=== PATIENT | female | born 1960 | race Caucasian/White ===

== ENCOUNTER 2016-08-27 08:23 | Day surgery (SDC) | payer MEDICARE, OTHER ==
--- NOTE | 2016-08-27 06:12 | HP ---
DATE OF ADMISSION: Chief complaint is fluid in both ears. HISTORY OF PRESENT ILLNESS: This patient is a 55-year-old female who was recently seen in my office complaining of having a plugged sensation in both ears following an upper respiratory tract infection. At the time that the patient was seen she stated that she had previously been placed on a course of oral antibiotics, namely Augmentin and Keflex by her family physician. In addition to this, my office had placed tubes in her ears last year and she did quite well as long as the tubes were present. At the time that she was seen in my office, clinical examination of the ears revealed once again that there was fluid present in both ears, that is to say both tympanic membranes were dull with evidence of chronic bilateral serous otitis media, so-called glue ear. It was recommended that the patient undergo a bilateral myringotomy with insertion of ventilation tubes under general anesthesia. Past medical history reveals that the patient had allergies to BIAXIN. The current medications include methotrexate, metformin, Lasix, levothyroxine, lisinopril, pravastatin, minocycline, Flonase, generic Prilosec, generic Zantac, NovoLog insulin, VGO-40 insulin pump, halobetasol ointment, Pataday ophthalmic drops p.r.n. for allergic conjunctivitis, desonide, metronidazole. Previous surgeries include bilateral myringotomy with insertion of ventilation tubes, excision of left meningioma, mastoidectomy, RK eye surgery, colonoscopy, removal of bone spur from the left foot, small skin cancer removed from the face, tonsillectomy, adenoidectomy, tubal ligation, endoscopic sinus surgeries, septoplasty, arthroscopic knee surgery, appendectomy, cholecystectomy. The patient is 5 para, 4 C-sections, ( ) and 1 miscarriage. REVIEW OF SYSTEMS: Cardiovascular is positive for hypertension. Respiratory is negative. Gastrointestinal is positive for GERD. Metabolic/endocrine is positive for type 1 diabetes mellitus, hypothyroidism, and hypercholesterolemia. Remainder of the review of systems is unremarkable. PHYSICAL EXAMINATION: The patient is a pleasant 55-year-old female who is alert and cooperative. HEENT EXAMINATION: Patient is normocephalic. Both tympanic membranes are dull with fluid in both middle ear spaces. Pupils equal, round, reactive light and accommodation. Extraocular movements are within normal limits. Intranasal examination reveals mild septal deviation with compensatory hypertrophy of the inferior turbinates and a moderate amount of mucus on mucous membranes drained down the posterior pharynx. Examination of oropharynx, cranial nerves 2 through 12 and remainder of the head and neck exam are all within normal limits. CHEST/CARDIOVASCULAR: Both lung frederick are clear to percussion and auscultation. Patient is in regular sinus rhythm. S1 and S2 are present without any murmurs, S3s or S4s. Peripheral pulses are bilaterally symmetrical and within normal limits. ABDOMEN: There is no evidence of any masses, megaly or tenderness. The abdomen is soft. Skin is unremarkable. Musculoskeletal and neurological are within normal limits. PELVIC/RECTAL EXAM: The pelvic/rectal exam is deferred at this time because the patient has this done on a regular basis at her family physician's office. The remainder of physical exam is essentially unremarkable. IMPRESSION: Chronic bilateral serous otitis media. PLAN: The patient is scheduled undergo a bilateral myringotomy with insertion of ventilation tubes under either general anesthesia or IV sedation, depending upon the anesthesia department's preference. ATTENTION RNS IN THE PRESURGICAL AREA: I have not ordered nor has my office ordered any presurgical prophylactic antibiotics for this patient. In fact I have not ordered any presurgical medications for this patient. If any presurgical prophylactic antibiotics are sent to the presurgical area for this patient they should be returned to pharmacy and make sure that the patient's account is credited appropriately. Again, I have not ordered any presurgical prophylactic antibiotics on a bilateral myringotomy with insertion of ventilation tubes. I have explained the operation/procedure to the patient, including the risks, benefits, side effects, alternative therapies (including not receiving the proposed treatment or service), the likelihood of the patient achieving his/her goals, and potential recuperation problems for the procedure/sedation/analgesia, as well as any blood products, if indicated. I also explained to the patient the risks, benefits, and side effects of the alternatives, as well as the risks related to not receiving the proposed procedure, care treatment or services.
[~2016-08-27 08:23] MED LIST: Pre Op ABX Message 1 EACH MISC MISCELLANE ONE
[2016-08-27] MEDS ORDERED: MIDAZOLAM 2 MG/2 ML VIAL IV PRN (08:30)
[2016-08-27] MEDS ORDERED: SCOPOLAMINE 1.5MG/72HR PATCH TRANSDERM ONE (08:30)
[2016-08-27] MEDS ORDERED: HYDROmorphone 1 MG/ML 1 ML SYRINGE IVP PRN (08:30)
[2016-08-27] MEDS ORDERED: LACTATED RINGERS 1,000 ML IV SCH (08:30)
[2016-08-27] MEDS ORDERED: ONDANSETRON 4 MG/2 ML VIAL IVP ONE (08:30)
[2016-08-27] MEDS ORDERED: DEXAMETHASONE SOD PHOSPHATE 10 MG/ML 1 ML VIAL IV ONE (08:30)
[2016-08-27] MEDS ORDERED: LIDOCAINE 1% 20 ML VIAL (10MG/ML) FOR IV START INTRADERMA ONE (08:55)
[2016-08-27 08:57] LABS: Glucose,Whole Blood 127 mg/dL (75-99)
[2016-08-27 09:30] LABS: Glucose,Whole Blood 142 mg/dL (75-99)
[2016-08-27] MEDS ORDERED: OFLOXACIN 0.3% OPHTH DROPS 5 ML BOTTLE RIGHT EAR ONE (10:16)
[2016-08-27] MEDS ORDERED: OFLOXACIN 0.3% OPHTH DROPS 5 ML BOTTLE BOTH EARS ONE (10:16)
[2016-08-27] MEDS ORDERED: MIDAZOLAM 2 MG/2 ML VIAL ONE (10:22)
[2016-08-27] MEDS ORDERED: PROPOFOL 10 MG/ML 20 ML VIAL IV ONE (10:22)
[2016-08-27] MEDS ORDERED: KETOROLAC 30 MG/ML 1 ML VIAL ONE (10:22)
[2016-08-27] MEDS ORDERED: SUCCINYLCHOLINE CHLORIDE 100 MG/5 ML SYR IV ONE (10:22)
[2016-08-27] MEDS ORDERED: ePHEDrine 50 MG/ML 1 ML AMP ONE (10:22)
[2016-08-27] MEDS ORDERED: LIDOCAINE 1% INJ 10MG/ML (20 ML MDV) ONE (10:22)
[2016-08-27] MEDS ORDERED: CIPROFLOXACIN-DEXAMETH 0.3-0.1% DROPS 7.5 ML BTL LEFT EAR ONE (10:55)
[2016-08-27 11:14] VITALS: TEMP 97
[2016-08-27 11:33] LABS: Glucose,Whole Blood 96 mg/dL (75-99)
[2016-08-27 12:04] LABS: Glucose,Whole Blood 85 mg/dL (75-99)
[2016-08-27 12:09] VITALS: RESP 18
[2016-08-27 12:26] VITALS: BP 112/69; PULSE 88
--- NOTE | 2016-08-30 11:07 | OP ---
DATE OF SERVICE: 08/27/2016 SURGEON: SHELIA HERNÁNDEZ MD PROPOSAL MANAGER: PREOPERATIVE DIAGNOSIS: Chronic bilateral serous otitis media. POSTOPERATIVE DIAGNOSIS: Chronic bilateral serous otitis media. OPERATION: Bilateral myringotomy with insertion of Activent be Gunjan-Bobbin ventilation tubes. ANESTHESIA: General. ESTIMATED BLOOD LOSS: SPECIMENS REMOVED: COMPLICATIONS: None. OPERATIVE FINDINGS: DESCRIPTION OF PROCEDURE: The patient was placed on the operating table in the supine position after uneventful induction and IV sedation, satisfactory general anesthesia was obtained. Next, the operating microscope was brought into position over the patient's right ear where after insertion of a #3 aural speculum, the external canal was cleansed of all wax and debris. The myringotomy knife was used to make an incision in the anterior inferior quadrant of the right tympanic membrane. The middle ear space was suctioned free of all fluid and a 1.1 mm Gunjan bobbin ventilation tube was inserted without any difficulty. Attention was then directed to the left ear where the same procedure was carried out using the operating microscope, #3 aural speculum, the external auditory canal was cleansed of all wax and debris. The myringotomy knife was used to make an incision in the anterior inferior quadrant of the left tympanic membrane and the middle ear space was suctioned free of all fluid. A 1.1 mm Gunjan bobbin ventilation tube was inserted without any difficulty. At this point, the procedure was terminated. There were no intraoperative complications. The patient tolerated the procedure well and was returned to the recovery room in satisfactory condition.
== END 2016-08-27 12:57 | disposition home or self-care (01) ==
LOC: OR 08:23
PROVIDERS: ATTEND Otolaryngology
DX: H65.23 Chronic serous otitis media, bilateral (principal); K21.9 Gastro-esophageal reflux disease without esophagitis; E78.00 Pure hypercholesterolemia, unspecified; E03.9 Hypothyroidism, unspecified; I10 Essential (primary) hypertension; E78.5 Hyperlipidemia, unspecified; E10.9 Type 1 diabetes mellitus without complications; Z79.84 Long term (current) use of oral hypoglycemic drugs; Z79.4 Long term (current) use of insulin; Z79.899 Other long term (current) drug therapy; Z96.41 Presence of insulin pump (external) (internal); Z79.51 Long term (current) use of inhaled steroids; Z88.1 Allergy status to other antibiotic agents; Z88.8 Allergy status to other drugs, medicaments and biological substances
CPT/HCPCS: 69436; J2250; J2405; J2001; J1885; J0330; J2704

== ENCOUNTER 2017-01-03 08:35 | Day surgery (SDC) | payer MEDICARE, OTHER ==
[2016-12-31 09:21] VITALS: BMI 33.5
--- NOTE | 2017-01-03 01:02 | P.HPIM ---
History of Present Illness H&P Date: 01/03/17 Chief Complaint: Fluid in both ears This patient is a 56-year-old female who was recently seen in my office complaining of a blocked sensation in both ears. The patient had previously undergone a bilateral myringotomy with insertion of ventilation tubes approximately 1 year ago. At the time that she was seen in my office clinical examination of the ears revealed that both ventilation tubes were completely occluded and there was fluid in both middle ear spaces. It was recommended that the patient undergo a bilateral myringotomy with insertion of ventilation tubes under IV sedation. Past medical history reveals that the patient has ALLERGIES to Biaxin and Celexa. Her current medications include desonide, methotrexate, metformin, Lasix, levothyroxine, lisinopril, Neurontin, pravastatin, minocycline, Flonase, Prilosec, Xanax, and NovoLog insulin. There is a history of hypertension and type 1 diabetes mellitus. There is no history of asthma. Review of systems: Cardiovascular is positive for hypertension; gastrointestinal is positive for GERD; metabolic abdomen is positive for hypercholesterolemia and type 1 diabetes mellitus. The remainder of the review of systems is essentially unremarkable. Physical Examination: this patient is a pleasant 56-year-old female who was alert and cooperative. HEENT: The patient is normocephalic and both tympanic membranes are dull with fluid in both middle ear spaces. Both ventilation tubes are completely occluded. Pupils are equal, round, and reactive to light and accommodation. Extraocular movements are within normal limits. Intranasal examination reveals moderate septal deviation with bilateral hypertrophy of the inferior turbinates. There is a slight amount of clear, mucus on the mucous membranes and draining down the posterior pharyngeal wall. Examination of the oropharynx, palpation of the neck, and cranial nerves II through XII and the remainder of the head and neck exam is within normal limits. chest cardiovascular: Both lung frederick are clear to percussion and auscultation. The patient is a regular sinus rhythm. S1 and S2 are present without evidence of any murmurs, S3s, or S4's. Peripheral pulses are bilaterally symmetrical. Abdomen: There is no evidence of any masses, megaly, or tenderness. The abdomen is soft. Musculoskeletal and neurological: Within normal limits. Pelvic rectal exam: The pelvic rectal exam is deferred at this time because patient has done a regular basis at her family physician's office. The remainder of the physical exam was essentially within normal limits. Impression: chronic bilateral serous Clarence media with bilateral occluded ventilation tubes. Plan: the patient is scheduled to undergo a bilateral myringotomy with insertion of ventilation tubes with IV sedation with M.a.c. or general anesthesia, depending upon the anesthesia department's preference. Attention RNs in the presurgical area: I have not ordered any presurgical prophylactic antibiotics for this patient. If the pharmacy department sends any presurgical prophylactic antibiotics to presurgical area for this patient, they should be returned to the pharmacy department and make sure that the patient's account is credited appropriately. Past Medical History Past Medical History: Diabetes Mellitus, Hyperlipidemia, Hypertension, Osteoarthritis (OA), Skin Disorder, Thyroid Disorder, Vascular Disorder Additional Past Medical History / Comment(s): ROSACEA. peripheral artery disease , varicose veins, ulcer, eczema, psoriasis, frequent ear infection. insulin pump History of Any Multi-Drug Resistant Organisms: None Reported Past Surgical History: Adenoidectomy, Section, Cholecystectomy, Ear Surgery, Orthopedic Surgery, Tonsillectomy, Tubal Ligation Additional Past Surgical History / Comment(s): right femur osteotomy, right knee arthroscopy, heel spurs-sherif, Past Anesthesia/Blood Transfusion Reactions: No Reported Reaction, Motion Sickness Additional Past Anesthesia/Blood Transfusion Reaction / Comment(s): . Smoking Status: Former smoker - Past Family History Father Family Medical History: Cancer, Deep Vein Thrombosis (DVT) Additional Family Medical History / Comment(s): lung cancer Medications and Allergies Home Medications Medication Instructions Recorded Confirmed Type Furosemide [Lasix] 80 mg PO QAM 06/26/14 12/31/16 History Lisinopril [Prinivil] 20 mg PO HS 06/26/14 12/31/16 History metFORMIN HCL [Glucophage] 1,000 mg PO BID 06/26/14 12/31/16 History Jxilwzu-Ajwa-Pwds [id number] 1 - 3 each PO Q4HR PRN 07/11/14 12/31/16 History [Excedrin] Minocycline [Minocin] 75 mg PO BID 07/11/14 12/31/16 History Olopatadine HCl [Pataday] 1 drop BOTH EYES DAILY 07/29/15 12/31/16 History Insulin Aspart (For Pump) [NovoLOG 2 unit SQ-PUMP CONTINUOUS 08/27/16 12/31/16 History (For Pump)] DULoxetine HCL [Cymbalta] 60 mg PO HS 12/31/16 12/31/16 History Levothyroxine Sodium 88 mcg PO QAM 12/31/16 12/31/16 History Omeprazole [PriLOSEC] 40 mg PO QAM 12/31/16 12/31/16 History Pravastatin Sodium [Pravachol] 40 mg PO HS 12/31/16 12/31/16 History Ranitidine HCl 150 mg PO BID 12/31/16 12/31/16 History Allergies Allergy/AdvReac Type Severity Reaction Status Date / Time adhesive Allergy Rash/Hives Verified 12/31/16 09:07 citalopram hydrobromide Allergy Rash/Hives Verified 12/31/16 09:07 [From Celexa] clarithromycin [From Biaxin] Allergy Rash/Hives Verified 12/31/16 09:07 Thrombosis Risk Factor Assmnt - Choose All That Apply Each Factor Represents 1 point: Age 41-60 years, Minor surgery planned, Obesity (BMI >25) Each Risk Factor Represents 3 Points: Family history of DVT/PE Thrombosis Risk Factor Assessment Total Risk Factor Score: 6 Thrombosis Risk Factor Assessment Level: High Risk
[~2017-01-03 08:35] MED LIST changes: +DEXAMETHASONE SOD PHOSPHATE 10 MG/ML 1 ML VIAL IV ONE; +HYDROmorphone 1 MG/ML 1 ML SYRINGE IVP PRN; +LIDOCAINE 1% 20 ML VIAL (10MG/ML) FOR IV START INTRADERMA PRN; +ONDANSETRON 4 MG/2 ML VIAL IVP ONE; +SCOPOLAMINE 1.5MG/72HR PATCH TRANSDERM ONE
[2017-01-03 09:42] LABS: Glucose,Whole Blood 117 mg/dL (75-99)
[2017-01-03] MEDS: LACTATED RINGERS 1,000 ML IV SCH ×2 (09:51→10:34)
[2017-01-03] MEDS ORDERED: OFLOXACIN 0.3% OTIC DROPS 5 ML BTL BOTH EARS ONE ×2 (10:20→10:46)
[2017-01-03] MEDS ORDERED: MIDAZOLAM 2 MG/2 ML VIAL ONE (10:34)
[2017-01-03] MEDS ORDERED: PROPOFOL 10 MG/ML 20 ML VIAL IV ONE (10:34)
[2017-01-03] MEDS ORDERED: fentaNYL (PF) 50 MCG/ML 2 ML AMP ONE (10:34)
[2017-01-03] MEDS ORDERED: LIDOCAINE 1% INJ 10MG/ML (20 ML MDV) ONE (10:34)
[2017-01-03] MEDS ORDERED: EPINEPHrine 1 MG/ML (MDV) 30 ML VIAL TOPICAL ONE (10:57)
[2017-01-03 11:39] VITALS: TEMP 97.4
[2017-01-03 11:49] LABS: Glucose,Whole Blood 95 mg/dL (75-99)
[2017-01-03 12:10] VITALS: RESP 16
[2017-01-03 12:39] VITALS: BP 130/80; PULSE 89
--- NOTE | 2017-01-03 22:03 | P.OP ---
Date of Procedure: 10/04/16 Preoperative Diagnosis: Chronic bilateral serous otitis media Postoperative Diagnosis: Chronic bilateral serous otitis media Procedure(s) Performed: Bilateral myringotomy with insertion of ventilation tubes Implants: Leigha T-type ventilation tube Anesthesia: GETA Surgeon: Sarmad Roth Indications for Procedure: Operative Findings: Description of Procedure:
--- NOTE | 2017-01-03 22:12 | P.OP ---
Date of Procedure: 10/04/16 Preoperative Diagnosis: Chronic bilateral serous otitis media Postoperative Diagnosis: Chronic bilateral serous otitis media Procedure(s) Performed: Bilateral myringotomy with insertion of ventilation tubes Implants: Jaiden T type ventilation tube Anesthesia: JUAN C Surgeon: Sarmad Roth Indications for Procedure: Operative Findings: Description of Procedure: The patient was placed on operating table in the supine position and after uneventful induction and LMA intubation satisfactory general anesthesia was obtained. Next, using the Zeiss operating microscope and a #3 aural speculum the right external auditory canal was cleansed of all wax and debris. Next, a previously inserted occluded ventilation tube was removed using the myringotomy knife and a pick. Next, the middle ear space was suctioned free of all fluid and a Jaiden T-type ventilation tube was inserted after making a myringotomy incision in the anterior-inferior quadrant of the right tympanic membrane. Attention then was directed to the left ear with the same procedure was carried out, that is to say using the Zeiss operating microscope and a #3 aural speculum the left external auditory canal was cleansed of all wax and debris. Next, using the myringotomy knife a previously inserted occluded ventilation tube was removed without incident. Next, an incision was made in the anterior- inferior quadrant of the left of the tympanic membrane and the left middle ear space was suctioned free of all fluid. Following this a Jaiden T-type ventilation tube was inserted without difficulty. At this point the procedure was terminated. There were no intra-operative complications. Estimated blood loss was 0. The patient tolerated procedure well and was returned to the recovery room etc. if he condition.
== END 2017-01-03 13:12 | disposition home or self-care (01) ==
LOC: OR 08:35
PROVIDERS: ATTEND Otolaryngology
DX: H65.23 Chronic serous otitis media, bilateral (principal); E10.9 Type 1 diabetes mellitus without complications; Z79.84 Long term (current) use of oral hypoglycemic drugs; Z79.4 Long term (current) use of insulin; Z96.41 Presence of insulin pump (external) (internal); E78.5 Hyperlipidemia, unspecified; I10 Essential (primary) hypertension; M19.90 Unspecified osteoarthritis, unspecified site; E07.9 Disorder of thyroid, unspecified; Z87.891 Personal history of nicotine dependence; K21.9 Gastro-esophageal reflux disease without esophagitis; Z79.2 Long term (current) use of antibiotics; Z79.899 Other long term (current) drug therapy; Z88.1 Allergy status to other antibiotic agents; Z88.8 Allergy status to other drugs, medicaments and biological substances; Z91.09 Other allergy status, other than to drugs and biological substances
CPT/HCPCS: 69436; J0171; J2250; J1100; J2405; J2001; J3010; J2704

== ENCOUNTER → 2017-11-01 | Outpatient (CLI) | payer MEDICARE, OTHER ==
--- NOTE | 2017-11-01 08:15 | CT ---
EXAMINATION TYPE: CT soft tissue neck wo con DATE OF EXAM: 11/01/2017 COMPARISON: NONE HISTORY: 57-year-old female complaining of bilateral ear pain, neck pain, degenerative osteoarthritis . TECHNIQUE: Contiguous axial scanning of the soft tissues of the neck without IV contrast. Coronal and sagittal reconstructions performed. CT DLP: 344.8 mGycm Automated exposure control for dose reduction was used. FINDINGS: Visualized intracranial structures, orbits and globes, paranasal sinuses, and mastoid air cells appea r clear. Evidence of prior FESS. Lack of IV contrast limits assessment of the mucosal space. Within this limitation, the nasopharynx a ppears clear. Some soft tissue thickening along the right tubal and right palatine tonsils, refer to axial image 55 and 48 causing asymmetry adjacent to the uvula as well as the vallecular spaces. The epiglottis and prevertebral soft tissues are normal. The glottic and subglottic structures as well as the tracheal column and visualized upper lungs are c lear. The thyroid gland, submandibular glands, and parotid glands appear grossly unremarkable allowing for noncontrast technique. Scattered tiny lymph nodes are present on both sides of the neck. No cervical lymphadenopathy by CT s ize criteria. Bones: No osseous destructive process. IMPRESSION: 1. ASYMMETRIC SOFT TISSUE THICKENING ALONG THE RIGHT TUBAL AND RIGHT PALATINE TONSILS COULD BE SECOND KATRIN TO MUCOSAL REDUNDANCY AND CROWDED STRUCTURES. DIRECT VISUALIZATION TO EXCLUDE A MUCOSAL LESION AN D IN THE MIDLINE 2. OTHERWISE, NO SPECIFIC ABNORMALITY SEEN ON NONCONTRAST CT.
== END | disposition home or self-care (01) ==
LOC: RADCTMAIN 06:27
PROVIDERS: ATTEND Otolaryngology
DX: M79.89 Other specified soft tissue disorders (principal); M19.90 Unspecified osteoarthritis, unspecified site
CPT/HCPCS: 70490

== ENCOUNTER 2017-11-18 09:37 | Day surgery (SDC) | payer MEDICARE, OTHER ==
[2017-11-10 11:10] VITALS: BMI 30.9
--- NOTE | 2017-11-18 02:47 | HP ---
HISTORY AND PHYSICAL CHIEF COMPLAINT: Lesion of the hypopharynx. HISTORY OF PRESENT ILLNESS: This patient is a pleasant 57-year-old female who was recently seen in my office for evaluation of possible throat problems. The patient stated that she had a foreign body sensation in her throat. An indirect laryngoscopy with headlight and mirror did not reveal any suspicious lesions. However, a CT scan of the neck with and without contrast revealed some soft tissue thickening along the right palatine tonsils which appear to be causing asymmetry of the uvula and the adjacent vallecular spaces on the right. It was recommended direct visualization of this area be carried out. Therefore, it was recommended the patient undergo a suspension microlaryngoscopy with possible biopsy of any lesions are found. PAST MEDICAL HISTORY: Reveals the patient has: ALLERGIES: BIAXIN AND CELEXA. MEDICATIONS: Her current medications include desonide, methotrexate, metformin, Lasix, levothyroxine, lisinopril, Neurontin and, pravastatin, minocycline, Flonase, Prilosec, Xanax, and NovoLog insulin. REVIEW OF SYSTEMS: Reveals there the cardiovascular system is positive for hypertension. Gastrointestinal system positive for GERD, gastroesophageal reflux disorder. Metabolic/endocrine is positive for hypercholesterolemia and type 1 diabetes mellitus. The remainder of the physical exam is essentially unremarkable. PHYSICAL EXAMINATION: This patient is a 57-year-old female who was alert and cooperative. HEENT examination: Patient is normocephalic. Tympanic membranes are normal. Middle ear space is free of any fluid or infection. Pupils are equal, round, reactive to light and accommodation. Extraocular movements within normal limits. Intranasal examination reveals moderate septal deviation with compensatory hypertrophy of the inferior turbinates and a moderate amount of mucus on the mucous membranes and draining down the posterior pharynx. Examination of oropharynx and hypopharynx are as described above in the history of present illness and will not be repeated here. Palpation of the neck and cranial nerves 2 through 12 and the remainder of the head and neck exam are within normal limits. CHEST/CARDIOVASCULAR: Both lung frederick are clear to percussion and auscultation. The patient is in regular sinus rhythm. S1 and S2 are present without any murmurs, S3s or S4s. Peripheral pulses are bilaterally symmetrical. ABDOMEN: There is no evidence of any masses, megaly, or tenderness. ABDOMEN: Soft. SKIN is unremarkable. MUSCULOSKELETAL AND NEUROLOGICAL are within normal limits. PELVIC/RECTAL EXAMINATION: Exam is deferred at this time because the patient has this done on a regular basis at her family physician's office. The remainder of physical exam is unremarkable. IMPRESSION: Suspect lesion of the right base of tongue. PLAN: The patient is scheduled undergo a suspension microlaryngoscopy, possible biopsy of lesion of the right base of tongue under general anesthesia and in the a.m. Attention RNs in the pre-surgical area: I have not ordered any pre-surgical prophylactic antibiotics for this patient. If the pharmacy department sends any pre- surgical prophylactic antibiotics to the pre-surgical area for this patient, that order should be cancelled and the medication should be returned to the pharmacy department and please make sure that the patient's account is credited appropriately. The only medications that I have ordered is Ofirmev 1000 mg IV, to be given once an intravenous line has been established. MMTRANGL / THANHN: [id number] /
[~2017-11-18 09:37] MED LIST changes: +HYDROmorphone 0.5 MG/0.5 ML SYRINGE IVP PRN; -HYDROmorphone 1 MG/ML 1 ML SYRINGE IVP PRN; +LACTATED RINGERS 1,000 ML IV SCH; +MIDAZOLAM 2 MG/2 ML VIAL IV PRN
[2017-11-18 10:53] LABS: Glucose,Whole Blood 143 mg/dL (75-99)
[2017-11-18] MEDS ORDERED: ACETAMINOPHEN IV (For NPO) 1,000 MG in EMPTY BAG 1 BAG IVPB ONE (11:25)
[2017-11-18] MEDS ORDERED: ePHEDrine SULFATE/0.9% NACL/PF 50 MG/5 ML SYRINGE IV ONE (12:07)
[2017-11-18] MEDS ORDERED: LIDOCAINE 1% INJ 10MG/ML (20 ML MDV) ONE (12:07)
[2017-11-18] MEDS ORDERED: GLYCOPYRROLATE 0.2 MG/ML 2 ML VIAL ONE (12:07)
[2017-11-18] MEDS ORDERED: PROPOFOL 10 MG/ML 20 ML VIAL IV ONE (12:07)
[2017-11-18] MEDS ORDERED: DEXAMETHASONE SOD PHOS (MDV) 100 MG/10 ML VIAL ONE (12:07)
[2017-11-18] MEDS ORDERED: MIDAZOLAM 2 MG/2 ML VIAL ONE (12:07)
[2017-11-18] MEDS ORDERED: NEOSTIGMINE 1 MG/ML 10 ML VIAL ONE (12:07)
[2017-11-18] MEDS ORDERED: SUCCINYLCHOLINE CHLORIDE 100 MG/5 ML SYR IV ONE (12:07)
[2017-11-18] MEDS ORDERED: fentaNYL (PF) 50 MCG/ML 2 ML AMP ONE (12:07)
[2017-11-18] MEDS ORDERED: ROCURONIUM BROMIDE 10 MG/ML 10 ML VIAL IV ONE (12:07)
[2017-11-18 12:53] VITALS: RESP 18; TEMP 97.6
[2017-11-18 14:05] VITALS: PULSE 66
[2017-11-18 14:37] VITALS: BP 116/70
--- NOTE | 2017-11-20 17:13 | OP ---
OPERATIVE REPORT DATE OF SURGICAL PROCEDURE: 11/19/2007. PREOPERATIVE DIAGNOSIS: Suspicious lesion of the right base of tongue, right parapharyngeal area. POSTOPERATIVE DIAGNOSIS: Normal examination of the hypopharynx. OPERATIVE PROCEDURE: The patient was placed on operating table in supine position and after uneventful induction endotracheal intubation, satisfactory general anesthesia was obtained. Next the laryngoscope was introduced into the patient's oropharynx in the usual fashion and the entire hypopharynx including the right and left piriform sinuses, vallecula, tip of the epiglottis, and base of tongue, were inspected for any suspicious lesions and none was found. Next, the tip of the laryngoscope was introduced into the laryngeal introitus and the laryngoscope was suspended on the patient's chest using the Lewy apparatus. Next, using the Zeiss operating microscope and under magnified visualization, no suspicious lesions were noted of the larynx. The laryngoscope was then repositioned to the area of the base of tongue, specifically the right base of tongue and again no suspicious lesions were noted and therefore no biopsies were taken. The entire right parapharyngeal gutter was inspected and again no suspicious lesions were noted in the hypopharynx or in the posterior pharynx. The patient was given 10 mg of Decadron to reduce any postoperative edema. At this point, the procedure was terminated. There were no intraoperative complications. The patient tolerated procedure well and was returned to the recovery room in satisfactory condition. MMODL / IJN: [id number] /
== END 2017-11-18 14:38 | disposition home or self-care (01) ==
LOC: OR 09:37
PROVIDERS: ATTEND Otolaryngology
DX: J35.2 Hypertrophy of adenoids (principal); I10 Essential (primary) hypertension; K21.9 Gastro-esophageal reflux disease without esophagitis; E78.00 Pure hypercholesterolemia, unspecified; E10.9 Type 1 diabetes mellitus without complications; Z91.09 Other allergy status, other than to drugs and biological substances; E78.5 Hyperlipidemia, unspecified; E07.9 Disorder of thyroid, unspecified; Z79.84 Long term (current) use of oral hypoglycemic drugs; Z79.82 Long term (current) use of aspirin; Z79.890 Hormone replacement therapy; Z79.899 Other long term (current) drug therapy; Z88.1 Allergy status to other antibiotic agents; Z88.8 Allergy status to other drugs, medicaments and biological substances
CPT/HCPCS: 31526; J2250; J1100 ×2; J2710; J2405; J2001; J3010; J0131; J0330; J2704

== ENCOUNTER → 2018-03-14 | Outpatient (CLI) | payer MEDICARE, OTHER ==
--- NOTE | 2018-03-14 09:58 | MR ---
EXAMINATION TYPE: MR knee LT wo con DATE OF EXAM: 03/14/2018 COMPARISON: None HISTORY: Pain in left knee TECHNIQUE: Multiplanar, multisequence images of the knee is performed without IV contrast. FINDINGS: MEDIAL MENISCUS: Anterior and posterior horns are intact without tear. LATERAL MENISCUS: Anterior and posterior horns are intact without tear. Myxoid degeneration anterior horn lateral meniscus. CRUCIATE LIGAMENTS: The anterior and posterior cruciate ligaments are intact and unremarkable. COLLATERAL LIGAMENTS: The medial collateral ligament and lateral collateral ligament complex are inta ct and unremarkable. EXTENSOR MECHANISM: Visualized quadriceps and patellar tendons are intact. EFFUSION: Small suprapatellar joint effusion noted. POPLITEAL CYST: No popliteal/akers cyst. TRICOMPARTMENT SPACES: Severe narrowing patellofemoral joint space with changes of chondromalacia pat lena and subchondral cyst formation. Extensive cartilaginous thinning mild narrowing medial tibiofemo ral joint space. Intercondylar spur formation noted as well as spur formation about the margins of th e femoral condyles and tibial plateaus. BONE MARROW SIGNAL: No focal abnormal marrow signal is appreciated. OTHER: No additional significant abnormality is appreciated. IMPRESSION: 1. Changes of chondromalacia patella. 2. Myxoid degeneration anterior horn lateral meniscus. 3. Joint effusion.
== END | disposition home or self-care (01) ==
LOC: RADMRIMAIN 07:08
PROVIDERS: ATTEND Orthopaedic Surgery
DX: M22.42 Chondromalacia patellae, left knee (principal); M17.12 Unilateral primary osteoarthritis, left knee

== ENCOUNTER 2018-06-15 18:54 | Emergency (ER) | payer MEDICARE ==
[2018-06-15 19:22] VITALS: BP 112/63; PULSE 107; RESP 16; TEMP 98.4
--- NOTE | 2018-06-15 21:46 | ED ---
General Adult HPI - General Chief complaint: ENT Stated complaint: EAR PAIN, HAS TUBES Source: patient, RN notes reviewed, old records reviewed Mode of arrival: ambulatory Limitations: no limitations - History of Present Illness Initial comments: 57-year-old female patient past medical history of PE tubes presents to ED with 1 week ear pain, sinus congestion, sore throat. Patient denies all other signs or symptoms. Patient has not taken anything for these symptoms. Patient denies chest pain, shortness breath, abdominal pain, nausea vomiting diarrhea, fever chills. Systemic: Pt denies fatigue, myalgia, fever/chills, rash. Pt denies weakness, night sweats, weight loss. Neuro: Pt denies headache, visual disturbances, syncope or pre-syncope. HEENT: Pt denies ocular discharge or irritation, rhinorrhea, or notable lymphadenopathy. Cardiopulmonary: Pt denies chest pain, SOB, heart palpitations, dyspnea on exertion. Abdominal/GI: Pt denies abdominal pain, n/v/d. : Pt denies dysuria, burning w/ urination, frequency/urgency. Denies new onset urinary or bowel incontinence. MSK: Pt denies myalgia, loss of strength or function in extremities. Neuro: Pt denies new onset weakness, paresthesias. - Related Data Home Medications Medication Instructions Recorded Confirmed Furosemide [Lasix] 80 mg PO QAM 06/26/14 11/18/17 Lisinopril [Prinivil] 20 mg PO HS 06/26/14 11/18/17 metFORMIN HCL [Glucophage] 1,000 mg PO BID 06/26/14 11/18/17 Exwiouo-Nkoz-Rinp 645-135-79Hg 1 - 3 each PO Q4HR PRN 07/11/14 11/18/17 [Excedrin] Minocycline [Minocin] 75 mg PO BID 07/11/14 11/18/17 Olopatadine HCl [Pataday] 1 drop BOTH EYES DAILY 07/29/15 11/18/17 Insulin Aspart (For Pump) [NovoLOG 2 unit SQ-PUMP CONTINUOUS 08/27/16 11/10/17 (For Pump)] DULoxetine HCL [Cymbalta] 60 mg PO HS 12/31/16 11/18/17 Levothyroxine Sodium 88 mcg PO QAM 12/31/16 11/18/17 Omeprazole [PriLOSEC] 40 mg PO QAM 12/31/16 11/18/17 Pravastatin Sodium [Pravachol] 40 mg PO HS 12/31/16 11/18/17 Ranitidine HCl 150 mg PO BID 12/31/16 11/18/17 Previous Rx's Medication Instructions Recorded HYDROcodone/APAP 5-325MG [Bethany 1 tab PO Q4HR PRN 2 Days #10 tab NS 11/18/17 5-325] Amoxicillin/Potassium Clav 1 each PO Q12HR 10 Days #20 tab 06/15/18 [Augmentin 875-125 Tablet] Allergies Allergy/AdvReac Type Severity Reaction Status Date / Time adhesive Allergy Rash/Hives Verified 06/15/18 19:22 citalopram hydrobromide Allergy Rash/Hives Verified 06/15/18 19:22 [From Celexa] clarithromycin [From Biaxin] Allergy Rash/Hives Verified 06/15/18 19:22 Review of Systems ROS Statement: Those systems with pertinent positive or pertinent negative responses have been documented in the HPI. ROS Other: All systems not noted in ROS Statement are negative. Past Medical History Past Medical History: Diabetes Mellitus, Hyperlipidemia, Hypertension, Osteoarthritis (OA), Skin Disorder, Thyroid Disorder, Vascular Disorder Additional Past Medical History / Comment(s): Peripheral artery disease, varicose veins, stomach ulcer, eczema, psoriasis, rosacea, frequent ear infection, has Insulin pump. History of Any Multi-Drug Resistant Organisms: None Reported Past Surgical History: Adenoidectomy, Section, Cholecystectomy, Ear Surgery, Orthopedic Surgery, Tonsillectomy, Tubal Ligation Additional Past Surgical History / Comment(s): right femur osteotomy, right knee arthroscopy, heel spurs-sherif, Past Anesthesia/Blood Transfusion Reactions: No Reported Reaction Additional Past Anesthesia/Blood Transfusion Reaction / Comment(s): . Past Psychological History: Depression Smoking Status: Former smoker Past Alcohol Use History: None Reported Past Drug Use History: None Reported - Past Family History Father Family Medical History: Cancer, Deep Vein Thrombosis (DVT) Additional Family Medical History / Comment(s): lung cancer General Exam - General Exam Comments Initial Comments: Constitutional: NAD, AOX3, Pt has pleasant affect. HEENT: NC/AT, trachea midline, neck supple, no lymphadenopathy. Posterior pharynx non erythematous, without exudates. External ears appear normal, without discharge. Tympanic membrane mildly erythematous, PE tubes in place, no discharge, perforation. Mucous membranes moist. Maxillary sinus pressure reproducible. Eyes PERRLA, EOM intact. There is no scleral icterus. No pallor noted. Cardiopulmonary: RRR, no murmurs, rubs or gallops, no JVD noted. Lungs CTAB in anterior and posterior frederick. No peripheral edema. HR 72 on cardiopulmonary exam. Abdominal exam: Abdomen soft and non-distended. Abdomen non-tender to palpation in all 4 quadrants. Bowel sounds active in LLQ. No hepatosplenomegaly. No ecchymosis Neuro: CN II-XII grossly intact. No nuchal rigidity. MSK: No posterior calf tenderness bilaterally, homans sign negative bilaterally. Posterior tibialis and radial pulse +2 bilaterally. Sensation intact in upper and lower extremities. Full active ROM in upper and lower extremities, 5/5 stregnth. Limitations: no limitations Course Vital Signs 06/15/18 19:19 Temperature 98.4 F Pulse Rate 107 H Respiratory 16 Rate Blood Pressure 112/63 O2 Sat by Pulse 100 Oximetry Medical Decision Making - Medical Decision Making 57-year-old female patient past medical history of PE tubes presents to ED with 1 week ear pain, sinus congestion, sore throat. Patient denies all other signs or symptoms. Physical exam displayed mildly erythematous TM's. Maxillary sinus pressure reproducible. Pt to be tx for sinusitis and otitis media with augmentin. Pt to f/u with PCP in 1-2 days. Pt to follow up with ENT Dr. Conn in 1-2 days. Pt to return to ED if new signs or symptoms develop or if conditions worsen in anyway. Disposition Clinical Impression: Sinusitis, Otitis media Disposition: HOME SELF-CARE Condition: Good Instructions: Sinusitis (ED) Additional Instructions: Patient to adhere to previously discussed treatment plan and will take medication(s) as directed. Patient to follow up with PCP in 1-2 days. Patient to return to ED if symptoms do not improve. Prescriptions: Amoxicillin/Potassium Clav [Augmentin 875-125 Tablet] 1 each PO Q12HR 10 Days # 20 tab Is patient prescribed a controlled substance at d/c from ED?: No Referrals: Alo De La Vega MD [Primary Care Provider] - 1-2 days Time of Disposition: 21:46
== END 2018-06-15 22:02 | disposition home or self-care (01) ==
LOC: EC 18:54
DX: H66.93 Otitis media, unspecified, bilateral (principal); J32.0 Chronic maxillary sinusitis; E78.5 Hyperlipidemia, unspecified; I10 Essential (primary) hypertension; E07.9 Disorder of thyroid, unspecified; F32.9 Major depressive disorder, single episode, unspecified; Z87.891 Personal history of nicotine dependence; Z88.1 Allergy status to other antibiotic agents; Z88.8 Allergy status to other drugs, medicaments and biological substances; Z91.048 Other nonmedicinal substance allergy status; Z79.4 Long term (current) use of insulin; Z79.899 Other long term (current) drug therapy; Z96.22 Myringotomy tube(s) status; Z96.41 Presence of insulin pump (external) (internal); Z87.19 Personal history of other diseases of the digestive system; Z86.19 Personal history of other infectious and parasitic diseases; Z90.89 Acquired absence of other organs
CPT/HCPCS: 99283

== ENCOUNTER → 2018-07-25 | Outpatient (CLI) | payer MEDICARE, OTHER ==
[2018-07-25 13:06] LABS: Basophils % (A) 0 %; Eosinophils # (A) 0.1 k/uL (0-0.7); Eosinophils % (A) 2 %; HCT 35.3 % (34.0-46.0); HGB 11.4 gm/dL (11.4-16.0); Lymphocytes # (A) 1.2 k/uL (1.0-4.8); Lymphocytes % (A) 26 %; MCH 30.9 pg (25.0-35.0); MCHC 32.4 g/dL (31.0-37.0); MCV 95.4 fL (80.0-100.0); Mean Platelet Volume 7.1; Monocytes # (A) 0.2 k/uL (0-1.0); Monocytes % (A) 5 %; Neutrophils # (A) 3.1 k/uL (1.3-7.7); Neutrophils % (A) 65 %; Platelet Count 304 k/uL (150-450); RBC 3.69 m/uL (3.80-5.40); RDW 15.4 % (11.5-15.5); WBC 4.7 k/uL (3.8-10.6)
[2018-07-25 13:10] LABS: Prothrombin Time 10.4 sec (9.0-12.0)
[2018-07-25 13:13] LABS: Potassium 5.1 mmol/L (3.5-5.1)
== END ==
LOC: LABPAT 11:41
PROVIDERS: ATTEND Orthopaedic Surgery
DX: Z01.818 Encounter for other preprocedural examination (principal); M17.12 Unilateral primary osteoarthritis, left knee; Z51.81 Encounter for therapeutic drug level monitoring; Z79.01 Long term (current) use of anticoagulants
CPT/HCPCS: 36415; 80051; 85025; 85610; 87070; 93005

== ENCOUNTER 2018-08-07 05:42 | Inpatient (IN) | payer MEDICARE, OTHER ==
--- NOTE | 2018-08-06 17:23 | HP ---
HISTORY AND PHYSICAL HISTORY: Claribel Horowitz is a 57-year-old patient seen with symptomatic left knee osteoarthritis. Treatment options were discussed with her. She elected to proceed with left total knee arthroplasty. Consent was obtained. Medical clearance provided by Dr. Alo De La Vega. PAST MEDICAL HISTORY: Hypertension, hypothyroidism, gastroesophageal reflux disease, insulin-dependent diabetes. PAST SURGICAL HISTORY: Noncontributory. MEDICATIONS: 1. Lantus insulin. 2. Levothyroxine. 3. Lisinopril. 4. Metformin. 5. NovoLog insulin. 6. Pravastatin. 7. Prilosec. 8. Zantac. 9. Victoza. ALLERGIES: BIAXIN, CELEXA. SOCIAL HISTORY: She denies tobacco use. PHYSICAL EXAMINATION: Evaluation of the left knee, range of motion is 0 to 125 degrees. Tenderness medial joint line. Crepitus along the medial and patellofemoral compartments with range of motion. Ligaments stable. Hip rotation without pain. Distal neurovascular exam is intact. RADIOGRAPHS: Radiographs of the left knee reveal moderate to severe medial, moderate to severe lateral, and severe patellofemoral compartment osteoarthritis. IMPRESSION: 1. Left knee osteoarthritis. 2. Hypertension. 3. Hypothyroidism. PLAN: Left total knee arthroplasty. MMODL / IJN: [id number] /
[~2018-08-07 05:42] MED LIST changes: -LACTATED RINGERS 1,000 ML IV SCH; +MELOXICAM 7.5 MG TAB PO ONE; +MIDAZOLAM (PF) 2 MG/2 ML VIAL IV PRN; -MIDAZOLAM 2 MG/2 ML VIAL IV PRN; -Pre Op ABX Message 1 EACH MISC MISCELLANE ONE; -SCOPOLAMINE 1.5MG/72HR PATCH TRANSDERM ONE; +TRANEXAMIC ACID 1,000 MG in SODIUM CHLORIDE 0.9% 100 ML IVPB ONE; +ceFAZolin IN SWFI 2 GM/20 ML SYRINGE IVP ONE; +fentaNYL (PF) 50 MCG/ML 2 ML AMP IV PRN
[2018-08-07] MEDS: LACTATED RINGERS 1,000 ML IV SCH ×4 (06:19→22:52)
[2018-08-07 06:32] LABS: Glucose,Whole Blood 116 mg/dL (75-99)
[2018-08-07] MEDS ORDERED: MIDAZOLAM 2 MG/2 ML VIAL IVP ONE (07:06)
[2018-08-07] MEDS ORDERED: ROPIVACAINE 1,100 MG, SODIUM CHLORIDE 0.9% 500 ML 330 ML MISCELLANE PRN ×2 (07:16)
[2018-08-07] MEDS ORDERED: TRANEXAMIC ACID 1,000 MG/10 ML VIAL ONE (07:25)
[2018-08-07] MEDS ORDERED: SODIUM CHLORIDE 0.9% 100 ML BAG ONE (07:25)
[2018-08-07] MEDS ORDERED: MIDAZOLAM 2 MG/2 ML VIAL ONE (07:25)
[2018-08-07] MEDS ORDERED: fentaNYL (PF) 50 MCG/ML 2 ML AMP ONE (07:25)
[2018-08-07] MEDS ORDERED: ceFAZolin 3,000 MG in SODIUM CHLORIDE 0.9% IRRIGATIO 3,000 ML IRRIGATION ONE (07:30)
[2018-08-07] MEDS ORDERED: ROPIVACAINE 246.25 MG, EPINEPHrine 0.5 MG, KETOROLAC 30 MG, cloNIDine HCL/PF 80 MCG, WA... MISCELLANE ONE ×5 (07:30)
[2018-08-07] MEDS ORDERED: LACTATED RINGERS 1,000 ML IV ONE ×2 (07:50→12:09)
[2018-08-07] MEDS ORDERED: HYDROmorphone 1 MG/ML 1 ML SYRINGE IVP PRN (09:01)
[2018-08-07] MEDS ORDERED: ONDANSETRON 4 MG/2 ML VIAL IVP PRN (09:01)
[2018-08-07] MEDS ORDERED: HYDROmorphone 0.5 MG/0.5 ML SYRINGE IVP PRN ×2 (09:01)
[2018-08-07] MEDS ORDERED: NALOXONE 0.4 MG/ML 1 ML VIAL IV PRN (09:01)
[2018-08-07] MEDS ORDERED: HYDROcodone/APAP 5-325MG 1 EACH TAB PO PRN (09:01)
--- NOTE | 2018-08-07 09:01 | P.OP ---
Date of Procedure: 08/07/18 Preoperative Diagnosis: Left knee osteoarthritis Postoperative Diagnosis: Left knee osteoarthritis Procedure(s) Performed: Left total knee arthroplasty Implants: 1. Microport evolution size 3 left cemented femur 2. Microport evolution size 3 left cemented tibial baseplate 3. Microport evolution size 3 left MP/CS 10 mm polyethylene tibial insert 4. Microport advance 35 mm cemented all polyethylene patella Anesthesia: regional (Adductor canal catheter), local, spinal Surgeon: Michele Chaudhry Manager Operational #1: Rasta Gerber Estimated Blood Loss (ml): 50 Pathology: other (Bone) Condition: stable Disposition: PACU Indications for Procedure: 57-year-old patient seen with symptomatic left knee osteoarthritis. After treatment options were discussed, she elected to proceed with total knee arthroplasty Operative Findings: See description of procedure Description of Procedure: Patient was taken to the operative suite after having an adductor canal catheter placed by the department of anesthesia. Patient underwent a spinal anesthetic by the department of anesthesia. Patient was given preoperative IV intake antibiotics and TXA. A well-padded tourniquet was placed about the left lower extremity. The lower extremity was then prepped and draped in the normal sterile orthopedic fashion. The extremity was elevated, a tourniquet was insufflated to 300. A standard anterior incision was made sharply through skin. Dissection was taken down through the subcutaneous soft tissues down to the extensor mechanism. A medial arthrotomy was performed, patella was everted and knee was flexed. There was advanced osteoarthritis noted. I introduced my distal intramedullary femoral drill. I then introduced the distal femoral cutting jig. Sebastien GRAY secured the cutting jig with 2 pins. I held retractors in position while Sebastien GRAY performed the distal femoral resection through the guide area we now removed her distal femoral cutting guide. We now placed our 4-in-1 femoral cutting block and positioned and it was secured with 2 pins by Sebastien GRAY while I held the block in position. The distal femoral finishing was now completed. A proximal tibial cutting guide was positioned. I held the guide in the appropriate position with both hands well Sebastien GRAY inserted stabilizing pins into the guide. Proximal tibial cut was made. We now placed a trial femoral component into position, along with an appropriate size tibial tray and insert. We now took the knee through range of motion and had full extension good flexion and good overall soft tissue balance noted. The patella was everted and stabilized with 2 towel clips held by Sebastien GRAY while I performed a flush with patellar quad tendon utilizing a fresh sawblade. We templated the patella, appropriate drill holes were made. An appropriate trial patella was positioned, knee was taken through full range of motion with the patella tracking very nicely. The trial patella was removed. Drill holes were made through the femoral component. All trial components were removed after marking off the appropriate rotation of the tibia. Retractors were now positioned along the proximal tibia. An appropriate keel punch was made with the appropriate size tibial guide by myself on Sebastien GRAY assisted by holding retractors. At this point appropriate size implants were chosen and opened. The joint was irrigated copiously with pulse lavage mechanical irrigation. The posterior capsule was infiltrated with local analgesic. The wound was irrigated with pulse lavage mechanical irrigation. We mixed antibiotic methylmethacrylate. We placed the knee into flexion. We placed multiple retractors assisted by Sebastien GRAY to expose the proximal tibia. Once the methyl methacrylate was ready, the tibial component was cemented into place removing any excess methylmethacrylate form by both myself and Sebastien GRAY. The femoral component was cemented into place removing the removing any excess methylmethacrylate performed by both myself and Sebastien GRAY. We then inserted the appropriate size polyethylene tibial insert. We made sure that it was locked into position. We took the knee into full extension, and then back in a flexion making sure we had removed any excess methylmethacrylate. The patellar component was then cemented down and secured with clamp. Excess methylmethacrylate removed. We kept the knee in full extension, patellar clamp in position until methylmethacrylate had hardened. Once it had hardened the patellar clamp was removed. The knee was taken through full range of motion. The patella tracked nicely. There was good soft tissue balancing. The tourniquet was now released. Additional hemostasis was achieved via electrocautery. A second gram of TXA was given. The wound again was irrigated with pulse lavage mechanical irrigation. The superficial soft tissues were infiltrated local analgesic. The extensor mechanism was repaired with Vicryl. We checked the repair with range of motion and it was stable. The subcutaneous soft tissues were repaired with Vicryl in layers. The skin was approximated with pernio/Dermabond. Sterile dressings were applied followed by loose web roll and Federico bandage. The patient was transferred to a bed, and taken to recovery in stable and satisfactory condition. Sebastien GRAY assisted with this complex procedure.
--- NOTE | 2018-08-07 09:39 | XR ---
EXAMINATION TYPE: XR knee limited LT DATE OF EXAM: 08/07/2018 COMPARISON: None HISTORY: Evaluation for postop abnormality in alignment TECHNIQUE: 2 view left knee FINDINGS: Tibial and femoral components have been placed. Postsurgical changes are present through th e knee. No acute fractures are evident. IMPRESSION: 1. No acute fractures post knee replacement.
[2018-08-07 09:55] LABS: Glucose,Whole Blood 158 mg/dL (75-99)
--- NOTE | 2018-08-07 10:02 | P.ONQ ---
Anesthesiology Proc Note - PNB - Peripheral Nerve Block Performed Left Adductor Canal Infusion Time Out Performed: Yes Procedure Start Time: 07:06 Procedure Stop Time: :18 Indication: Acute Post-Operative Pain, Requested by physician Sedation Type: Sedate with meaningful contact maintained Preparation: Sterile Dressing Position: Supine Catheter: Indwelling Needle Types: On-Q Needle Size: 100mm (4") Needle Gauge: 21 Technique: Ultrasound Injectate: 0.5% Ropivacaine (see comment for volume) (ropi .5% 20cc) Blood Aspirated: No Pain Paresthesia on Injection Noted: No Resistance on Injection: Normal Events: Uneventful and Well Tolerated
[2018-08-07 14:25] VITALS: BMI 27.8
[2018-08-07] MEDS ORDERED: KETOTIFEN 0.025% OPHTH DROPS 5 ML BTL BOTH EYES PRN (16:27)
[2018-08-07 17:31] LABS: Glucose,Whole Blood 283 mg/dL (75-99)
[2018-08-07] MEDS: ceFAZolin IN SWFI 2 GM/20 ML SYRINGE IVP SCH (18:05)
[2018-08-07] MEDS: metFORMIN 500 MG TAB PO SCH (18:11)
[2018-08-07] MEDS ORDERED: INSULIN PUMP BASAL RATES 1 EACH MISC MISCELLANE PRN (18:21)
[2018-08-07] MEDS ORDERED: INSPUCOR MISCELLANE PRN (18:21)
[2018-08-07] MEDS: Insulin Aspart (For Pump) 100 UNIT/ML VIAL SQ-PUMP SCH (18:26)
[2018-08-07] MEDS: PRAVASTATIN SODIUM 40 MG TAB PO SCH (20:16)
[2018-08-07] MEDS: FAMOTIDINE 20 MG TAB PO SCH (20:16)
[2018-08-07] MEDS: DULoxetine HCL 30 MG CAPSULE.DR PO SCH (20:16)
[2018-08-07] MEDS: LISINOPRIL 20 MG TAB PO SCH (20:16)
[2018-08-07] MEDS: AMOXIC-POT CLAV 875-125MG 1 EACH TAB PO SCH (20:16)
[2018-08-07] MEDS: SENNOSIDES-DOCUSATE SODIUM 1 EACH TAB PO SCH (20:16)
[2018-08-07] MEDS: HYDROcodone/APAP 5-325MG 1 EACH TAB PO PRN (20:17)
[2018-08-07 20:18] LABS: Glucose,Whole Blood 216 mg/dL (75-99)
[2018-08-07] MEDS ORDERED: DULoxetine HCL 60 MG CAPSULE.DR PO SCH (21:00)
--- NOTE | 2018-08-08 00:03 | CONS ---
CONSULTATION REASON FOR CONSULTATION: Advice regarding diabetes mellitus, hypertension, hyperlipidemia, requested by Orthopedic Surgery. HISTORY OF PRESENT ILLNESS: This 57-year-old woman with a past medical history diabetes mellitus, GERD, hypertension, hyperlipidemia, history of thyroid disorder, being followed by Dr. De La Vega in the outpatient setting, underwent left total knee arthroplasty by Dr. Chaudhry. The patient tolerated the procedure well. There is no history of any fever, rigor, chills. No history of headache, loss of consciousness, seizures. The patient is also taking antibiotics for upper respiratory infection. PAST MEDICAL HISTORY: 1. History of diabetes mellitus. 2. GERD. 3. Hypertension. 4. Hyperlipidemia. 5. History of DJD. 6. History of skin disorder. 7. History of hypothyroidism. 8. Vascular disorder. HOME MEDICATIONS: 1. Glucophage 1000 mg p.o. b.i.d. 2. Ranitidine 150 mg p.o. b.i.d. 3. Pravachol 40 mg at bedtime. 4. Pataday 1 drop both eyes daily p.r.n. 5. Prinivil 20 mg at bedtime. 6. Levothyroxine 88 mcg p.o. each morning. 7. NovoLog pump. 8. Lasix 80 mg each morning. 9. Vibramycin 100 mg each morning. 10.Cymbalta 30 mg at bedtime. 11.Cymbalta 60 mg at bedtime. 12.Augmentin 875 mg one p.o. b.i.d. ALLERGIES: 1. ADHESIVE. 2. CELEXA. 3. BIAXIN. FAMILY HISTORY: History of cancer and DVT, lung cancer. SOCIAL HISTORY: Previous history of smoking. No current smoking or alcohol intake. REVIEW OF SYSTEMS: ENT: No diminished hearing. No diminished vision. CARDIOVASCULAR SYSTEM: No angina, palpitations. RESPIRATORY SYSTEM: No cough, hemoptysis. GI: No nausea, vomiting. : No dysuria or retention. NERVOUS SYSTEM: No numbness, weakness. ALLERGY/IMMUNOLOGY: No asthma, hayfever. MUSCULOSKELETAL: As mentioned earlier. HEMATOLOGY/ONCOLOGY: No history of anemia. ENDOCRINE: Diabetes mellitus. CONSTITUTIONAL: As mentioned earlier. DERMATOLOGY: Negative. RHEUMATOLOGY: Negative. PSYCHIATRY: As mentioned earlier. PHYSICAL EXAMINATION: Patient is alert, oriented x3. The pulse is 101, blood pressure 111/68, respirations 16, temperature 98.2, pulse ox 100% on room air. HEENT: Conjunctivae normal. NECK: No jugular venous distention. CARDIOVASCULAR SYSTEM: S1, S2 muffled. RESPIRATORY SYSTEM: Breath sounds diminished at the bases. No rhonchi. No crackles. ABDOMEN: Soft, non-tender. No mass palpable. LEGS: Status post knee arthroplasty. NERVOUS SYSTEM: Higher functions as mentioned earlier. Moves all 4 limbs. No focal motor or sensory deficit. LYMPHATICS: No lymph node palpable in neck, axillae or groin. SKIN: No ulcer, rash, bleeding. JOINTS: No active deforming arthropathy. LABS: Accu-Cheks 116, 158, 283. ASSESSMENT: 1. Status post left total knee joint arthroplasty. 2. Diabetes mellitus, type 2. 3. Gastroesophageal reflux disease. 4. Hypertension. 5. Hyperlipidemia. 6. Degenerative joint disease. 7. Hypothyroidism. 8. History of vascular disorder. 9. Insulin pump. 10.Peripheral vascular disease. 12.Adenoidectomy. 13. section. 14.Cholecystectomy. RECOMMENDATIONS AND DISCUSSION: I recommend to continue current medications, continue with symptomatic treatment. Continue with insulin pump. Monitor blood sugars closely. Continue the rest of medications. I would also resume the home medications. DVT prophylaxis. Incentive spirometry. We will follow the patient closely with you. Thank you, Dr. Chaudhry, for letting us participate in the care of this patient. MELISSA / THANHN: [id number] / KULDEEP
[2018-08-08] MEDS: ceFAZolin IN SWFI 2 GM/20 ML SYRINGE IVP SCH (00:06)
[2018-08-08] MEDS: ENOXAPARIN 30 MG/0.3 ML SYRINGE SQ SCH ×3 (00:06→20:24)
[2018-08-08] MEDS: HYDROcodone/APAP 5-325MG 1 EACH TAB PO PRN ×4 (02:34→20:25)
[2018-08-08] MEDS: LACTATED RINGERS 1,000 ML IV SCH ×3 (05:17→14:49)
[2018-08-08] MEDS: LEVOTHYROXINE 88 MCG TAB PO SCH (05:31)
[2018-08-08 07:06] LABS: Glucose,Whole Blood 64 mg/dL (75-99)
[2018-08-08 07:46] LABS: Glucose,Whole Blood 70 mg/dL (75-99)
[2018-08-08 08:19] LABS: Basophils % (A) 0 %; Eosinophils # (A) 0.1 k/uL (0-0.7); Eosinophils % (A) 3 %; HCT 27.8 % (34.0-46.0); Lymphocytes % (A) 24 %; MCH 32.7 pg (25.0-35.0); MCHC 33.6 g/dL (31.0-37.0); MCV 97.1 fL (80.0-100.0); Mean Platelet Volume 6.6; Monocytes # (A) 0.3 k/uL (0-1.0); Monocytes % (A) 6 %; Neutrophils # (A) 2.8 k/uL (1.3-7.7); Neutrophils % (A) 65 %; Platelet Count 218 k/uL (150-450); RBC 2.86 m/uL (3.80-5.40); RDW 15.3 % (11.5-15.5); WBC 4.2 k/uL (3.8-10.6)
[2018-08-08 08:21] LABS: HGB 9.3 gm/dL (11.4-16.0)
[2018-08-08 08:37] LABS: Anion Gap 5 mmol/L; Blood Urea Nitrogen 18 mg/dL (7-17); Calcium 9.1 mg/dL (8.4-10.2); Carbon Dioxide 27 mmol/L (22-30); Chloride 105 mmol/L (98-107); Glucose 92 mg/dL (74-99); Potassium 4.1 mmol/L (3.5-5.1); Sodium 137 mmol/L (137-145)
[2018-08-08] MEDS: metFORMIN 500 MG TAB PO SCH ×2 (08:58→17:31)
[2018-08-08] MEDS: FUROSEMIDE 80 MG TAB PO SCH ×2 (09:00→09:04)
[2018-08-08] MEDS: PANTOPRAZOLE 40 MG TABLET PO SCH (09:00)
[2018-08-08] MEDS: AMOXIC-POT CLAV 875-125MG 1 EACH TAB PO SCH ×2 (09:00→20:24)
[2018-08-08] MEDS: MELOXICAM 7.5 MG TAB PO SCH (09:00)
[2018-08-08] MEDS: FAMOTIDINE 20 MG TAB PO SCH ×2 (09:00→20:24)
--- NOTE | 2018-08-08 10:45 | P.PN ---
Progress Note - Text Progress Note Date: 08/08/18 The patient is status post left adductor canal catheter placement. The catheter was placed for postoperative pain control, status post total [left knee ] arthroplasty. Ropivacaine 0.2% is infusing at[ 6] mLs per hour. The patient has no complaints of[ left ] lower extremity numbness or weakness. Patient's VAS score is[ 4 ]-10. Assessment: Patient's adductor canal catheter is in place and working appropriately. Plan: continue infusion and adjust it as needed.
[2018-08-08 12:13] LABS: Glucose,Whole Blood 212 mg/dL (75-99)
--- NOTE | 2018-08-08 13:16 | P.PN ---
Subjective Progress Note Date: 08/08/18 Principal diagnosis: Status post left total knee arthroplasty Patient evaluated bedside, she is resting comfortably. Slight increase in pain involving the knee when ambulating. Denies any chest pain or shortness of breath. Objective - Vital Signs Vital signs: Vital Signs Temp 98.1 F 08/08/18 07:00 Pulse 91 08/08/18 07:00 Resp 12 08/08/18 07:00 BP 110/70 08/08/18 07:00 Pulse Ox 100 08/08/18 07:00 Intake & Output 08/07/18 08/08/18 08/08/18 18:59 06:59 18:59 Intake Total 1831 1250 Output Total 50 Balance 1781 1250 Intake: IV 1351 Intake, IV Titration 1250 Amount Lactated Ringers 1,000 ml 1250 @ 100 mls/hr IV .Q10H PILLO Rx#:[id number] Oral 480 Output: Estimated Blood Loss 50 Other: Voiding Method Toilet Toilet # Voids 2 - Exam Left lower extremity: Incision is clean, dry, and intact. The casey are in good condition. There is minimal soft tissue swelling and ecchymosis surrounding the medial and lateral aspects of the incision. Calf is soft, no tenderness with palpation. Plantar flexion, dorsiflexion, EHL, FHL are intact. Sensory exam to light touch throughout the extremity is intact, dorsal pedis pulses 2+. - Labs CBC & Chem 7: 08/08/18 07:27 08/08/18 07:27 Labs: Abnormal Lab Results - Last 24 Hours (Table) 08/07/18 08/07/18 08/08/18 Range/Units 17:18 20:07 06:55 RBC (3.80-5.40) m/uL Hgb (11.4-16.0) gm/dL Hct (34.0-46.0) % BUN (7-17) mg/dL POC Glucose (mg/dL) 283 H 216 H 64 L (75-99) mg/dL 08/08/18 08/08/18 08/08/18 Range/Units 07:24 07:27 07:27 RBC 2.86 L (3.80-5.40) m/uL Hgb 9.3 L D (11.4-16.0) gm/dL Hct 27.8 L (34.0-46.0) % BUN 18 H (7-17) mg/dL POC Glucose (mg/dL) 70 L (75-99) mg/dL 08/08/18 Range/Units 12:01 RBC (3.80-5.40) m/uL Hgb (11.4-16.0) gm/dL Hct (34.0-46.0) % BUN (7-17) mg/dL POC Glucose (mg/dL) 212 H (75-99) mg/dL Assessment and Plan Plan: Assessment: Postoperative day 1 status post left total knee arthroplasty Plan: Pain control, continue current medication GI and DVT prophylaxis, continue current medication Home care instructions discussed Icing and elevating often Encourage incentive spirometer Medical recommendations Hopeful discharged to home in the next day or 2 Time with Patient: Less than 30
[2018-08-08 17:03] LABS: Glucose,Whole Blood 202 mg/dL (75-99)
[2018-08-08 18:09] LABS: Hemoglobin A1C 7.6 % (4.0-6.0)
[2018-08-08] MEDS: Insulin Aspart (For Pump) 100 UNIT/ML VIAL SQ-PUMP SCH (18:33)
--- NOTE | 2018-08-08 19:00 | PN ---
PROGRESS NOTE DATE OF SERVICE: 08/08/2018 This 57-year-old woman who was admitted after left total knee arthroplasty is improving significantly. No chest pain. No palpitations. No fever. On exam, alert and oriented x3. The pulse is 88, blood pressure 124/74, respiratory rate 16, temperature 98.1, pulse ox 100% on room air. HEENT: Conjunctivae normal. NECK: No jugular venous distention. CARDIOVASCULAR SYSTEM: S1, S2 muffled. RESPIRATORY SYSTEM: Breath sounds diminished at the bases. No rhonchi. No crackles. ABDOMEN: Soft, non-tender. No mass palpable. LEGS: Status post surgery. NERVOUS SYSTEM: No focal deficit. LABS: Hemoglobin 9.3. Accu-Cheks 64, 70, 212. ASSESSMENT: 1. Status post left total knee arthroplasty. 2. Diabetes mellitus, type 2, with some hypoglycemia. 3. Gastroesophageal reflux disease. 4. Hypertension. 5. Hyperlipidemia. 6. Degenerative joint disease. 7. History of hypothyroidism. 8. History of vascular disorder. 9. Insulin pump. 10.Peripheral vascular disease. 12.Adenoidectomy. 13. section. 14.Cholecystectomy. RECOMMENDATIONS AND DISCUSSION: I recommend to continue current medications, continue with the monitoring, symptomatic treatment. I recommend to continue with insulin pump. Further adjustments as an outpatient. Blood sugar is fluctuating at this time. Otherwise, DVT prophylaxis. Further recommendations to follow. See orders for further details. MMODL / IJN: [id number] / MTDD
[2018-08-08] MEDS: LISINOPRIL 20 MG TAB PO SCH (20:24)
[2018-08-08] MEDS: DULoxetine HCL 30 MG CAPSULE.DR PO SCH (20:24)
[2018-08-08] MEDS: SENNOSIDES-DOCUSATE SODIUM 1 EACH TAB PO SCH (20:24)
[2018-08-08] MEDS: PRAVASTATIN SODIUM 40 MG TAB PO SCH (20:24)
[2018-08-08 20:37] LABS: Glucose,Whole Blood 186 mg/dL (75-99)
[2018-08-09] MEDS: HYDROcodone/APAP 5-325MG 1 EACH TAB PO PRN ×2 (01:26→07:21)
[2018-08-09] MEDS: LACTATED RINGERS 1,000 ML IV SCH (03:34)
[2018-08-09 07:09] LABS: Glucose,Whole Blood 211 mg/dL (75-99)
[2018-08-09] MEDS: ENOXAPARIN 30 MG/0.3 ML SYRINGE SQ SCH (07:22)
[2018-08-09] MEDS: metFORMIN 500 MG TAB PO SCH (07:22)
[2018-08-09] MEDS: PANTOPRAZOLE 40 MG TABLET PO SCH (07:22)
[2018-08-09] MEDS: LEVOTHYROXINE 88 MCG TAB PO SCH (07:22)
[2018-08-09] MEDS: FUROSEMIDE 80 MG TAB PO SCH (08:02)
[2018-08-09] MEDS: FAMOTIDINE 20 MG TAB PO SCH (08:02)
[2018-08-09] MEDS: MELOXICAM 7.5 MG TAB PO SCH (08:02)
[2018-08-09] MEDS: AMOXIC-POT CLAV 875-125MG 1 EACH TAB PO SCH (08:02)
[2018-08-09 12:14] LABS: Glucose,Whole Blood 147 mg/dL (75-99)
--- NOTE | 2018-08-09 14:11 | P.PN ---
Subjective Progress Note Date: 08/09/18 Principal diagnosis: Status post left total knee arthroplasty Patient evaluated bedside, she is resting comfortably. Slight increase in pain involving the knee when ambulating. Denies any chest pain or shortness of breath. Objective - Vital Signs Vital signs: Vital Signs Temp 98.5 F 08/09/18 07:00 Pulse 89 08/09/18 07:00 Resp 17 08/09/18 07:00 BP 128/79 08/09/18 07:00 Pulse Ox 100 08/09/18 07:00 Intake & Output 08/08/18 08/09/18 08/09/18 18:59 06:59 18:59 Intake Total 500 476 Balance 500 476 Intake: Oral 500 476 Other: Voiding Method Toilet Toilet # Voids 2 2 - Exam Left lower extremity: Incision is clean, dry, and intact. The casey are in good condition. There is minimal soft tissue swelling and ecchymosis surrounding the medial and lateral aspects of the incision. Calf is soft, no tenderness with palpation. Plantar flexion, dorsiflexion, EHL, FHL are intact. Sensory exam to light touch throughout the extremity is intact, dorsal pedis pulses 2+. - Labs CBC & Chem 7: 08/08/18 07:27 08/08/18 07:27 Labs: Abnormal Lab Results - Last 24 Hours (Table) 08/08/18 08/08/18 08/08/18 Range/Units 07:27 16:50 20:26 POC Glucose (mg/dL) 202 H 186 H (75-99) mg/dL Hemoglobin A1c 7.6 H (4.0-6.0) % 08/09/18 08/09/18 Range/Units 06:54 12:02 POC Glucose (mg/dL) 211 H 147 H (75-99) mg/dL Hemoglobin A1c (4.0-6.0) % Assessment and Plan Plan: Assessment: Postoperative day #2 status post left total knee arthroplasty Plan: Pain control, will discharge on oral medication GI and DVT prophylaxis, aspirin 81 mg twice a day Home care instructions discussed Icing and elevating often Encourage incentive spirometer Medical recommendations Discharged home today Time with Patient: Less than 30
--- NOTE | 2018-08-09 14:15 | P.DS ---
Providers Date of admission: 08/07/18 05:42 Expected date of discharge: 08/09/18 Attending physician: Michele Chaudhry Consults: 08/07/18 09:01 Consult Physician Routine Consulting Provider: Konstantin Colin Consult Reason/Comments: Medical management Do you want consulting provider notified?: Yes Primary care physician: [facility] Hospital Course: Date of admission: 08/07/2018 Date of discharge: 08/09/2018 Admission diagnosis: Status post left total knee arthroplasty Discharge diagnosis: Same Attending physician: Dr. Chaudhry Surgical procedures: Left total knee arthroplasty Brief history: Patient is a 57-year-old female with a history of progressive primary left knee osteo- arthritis. At this point patient has failed conservative treatment measures and has opted to proceed with a elective left total knee arthroplasty. Hospital course: Details of patient's surgery can be found in operative report. Patient tolerated the procedure well and was subsequently transported to orthopedic floor. Patient's orthopeidc and medical care was provided daily. Patient had daily laboratory tests performed for evaluation of overall blood counts. Patient had daily physical therapy to include strengthening range of motion as well as education with walker ambulation. Patient had daily CPM usage as part of their physical therapy program. Patient was treated with Lovenox for their postoperative DVT prophylaxis during their inpatient stay. Patient was noted to have a relatively uneventful postoperative course. Patient reported satisfactory pain control with oral pain medications by postoperative day 0. Patient showed satisfactory progress with physical therapy. Patient moved steadily through the program and had no difficulty meeting the goals by postoperative day 2. Given patient's otherwise satisfactory course and having met physical therapy goals, plan is to discharge patient home on postoperative day 2. Discharge condition/disposition: Patient will be discharged home in stable condition. Discharge medications: Instructions are given on resumption of patient's normal daily medications per primary care recommendation, in addition patient will be prescribed Dozier 7.5 mg/325 mg, aspirin 81 mg, Colace 100 mg. Discharge instructions: 1. Wound care and infection precautions, [keep incision dry and covered while showering], no lotions, creams, moisturizers. No soaking, tubs, pools, hottubs. Do not scrub over the incision. 2. Weight-bear [as tolerated] with walker / cane until follow-up. 3. Ice and elevate when necessary. Do not exceed 20 minutes per hour with ice pack. 4. Utilize compression sleeve until seen at first follow up appointment. 5. Visiting nursing care. 6. Home physical therapy [including home CPM]. 7. Pain meds and anticoagulants per prescription. 8. Pain medication has potential to cause constipation. Increase oral fluid and fiber intake. Contact primary care provider if you have not had a bowel movement within 48 hours after discharge 9. No anti-inflammatory medication until discussed at first post operative visit, this including Motrin, Aleve, Mobic, Diclofenac. 10. Follow up in office at 2 weeks postop with Sebastien Gerber PA-C 11. Follow up with your primary care doctor 7-10 days after discharge. 12. Contact [facility] with any questions, . Procedures: Left total knee arthroplasty Patient Condition at Discharge: Good Plan - Discharge Summary Discharge Rx Participant: Yes New Discharge Prescriptions: New Aspirin [Adult Low Dose Aspirin EC] 81 mg PO BID #60 tablet. Docusate [Colace] 100 mg PO DAILY #30 capsule HYDROcodone/APAP 7.5-325MG [Dozier 7.5] 1 each PO Q6HR PRN #28 tab PRN Reason: Pain No Action Lisinopril [Prinivil] 20 mg PO HS Furosemide [Lasix] 80 mg PO QAM metFORMIN HCL [Glucophage] 1,000 mg PO BID Olopatadine HCl [Pataday] 1 drop BOTH EYES DAILY PRN PRN Reason: Allergy Symptoms Insulin Aspart (For Pump) [NovoLOG (For Pump)] 2 unit SQ-PUMP CONTINUOUS Pravastatin Sodium [Pravachol] 40 mg PO HS DULoxetine HCL [Cymbalta] 60 mg PO HS Ranitidine HCl 150 mg PO BID Omeprazole [PriLOSEC] 40 mg PO QAM Levothyroxine Sodium 88 mcg PO QAM Amoxicillin/Potassium Clav [Augmentin 875-125 Tablet] 1 each PO Q12HR 10 Days #20 tab DULoxetine HCL [Cymbalta] 30 mg PO HS Doxycycline [Vibramycin] 100 mg PO QAM Discharge Medication List Furosemide [Lasix] 80 mg PO QAM 06/26/14 [History] Lisinopril [Prinivil] 20 mg PO HS 06/26/14 [History] metFORMIN HCL [Glucophage] 1,000 mg PO BID 06/26/14 [History] Olopatadine HCl [Pataday] 1 drop BOTH EYES DAILY PRN 07/29/15 [History] Insulin Aspart (For Pump) [NovoLOG (For Pump)] 2 unit SQ-PUMP CONTINUOUS [History] DULoxetine HCL [Cymbalta] 60 mg PO HS 12/31/16 [History] Levothyroxine Sodium 88 mcg PO QAM 12/31/16 [History] Omeprazole [PriLOSEC] 40 mg PO QAM 12/31/16 [History] Pravastatin Sodium [Pravachol] 40 mg PO HS 12/31/16 [History] Ranitidine HCl 150 mg PO BID 12/31/16 [History] Amoxicillin/Potassium Clav [Augmentin 875-125 Tablet] 1 each PO Q12HR 10 Days # 20 tab 06/15/18 [Rx] DULoxetine HCL [Cymbalta] 30 mg PO HS 07/31/18 [History] Doxycycline [Vibramycin] 100 mg PO QAM 07/31/18 [History] Aspirin [Adult Low Dose Aspirin EC] 81 mg PO BID #60 tablet. 08/09/18 [Rx] Docusate [Colace] 100 mg PO DAILY #30 capsule 08/09/18 [Rx] HYDROcodone/APAP 7.5-325MG [Dozier 7.5] 1 each PO Q6HR PRN #28 tab 08/09/18 [Rx] Follow up Appointment(s)/Referral(s): [facility] [NON-STAFF] - As Needed (walker) [facility], [NON-STAFF] - As Needed Rasta Gerber PAC [PHYSICIAN HOSPITAL MANAGER] - 08/23/18 2:50 pm Alo De La Vega MD [Primary Care Provider] - 1 Week (Office will call with appointment time) Activity/Diet/Wound Care/Special Instructions: Continuous Passive Motion machine ordered through [facility]: # Orthopedic Discharge Instructions: 1. Wound care and infection precautions, keep incision dry and covered while showering, no lotions, creams, moisturizers. No soaking, pools, hot tubs. Do not scrub over incision. 2. Weight-bear as tolerated with walker / cane until follow-up. 3. Ice and elevate when necessary. Do not exceed 20 minutes per hour with ice pack. 4. Utilize compression sleeve until seen at first follow up appointment. 5. Pain meds and anticoagulants per prescription. 6. Pain medication has potential to cause constipation. Increase oral fluid and fiber intake. Contact primary care provider if you have not had a bowel movement within 48 hours after discharge. 7. No anti-inflammatory medication until discussed at first post operative visit, this including Motrin, Aleve, Mobic, Diclofenac. 8. Follow up in office at 2 weeks postop with Sebastien Gerber PA-C 9. Follow up with your primary care doctor 7-10 days after discharge. 10. Contact [facility] with any questions, . Discharge Disposition: HOME WITH HOME HEALTH SERVICES
[2018-08-09 15:10] VITALS: BP 131/83; PULSE 88; RESP 15; TEMP 98.7
--- NOTE | 2018-08-09 18:11 | PN ---
PROGRESS NOTE DATE OF SERVICE: 08/09/2018 This 57-year-old woman who was admitted after left total knee arthroplasty also has diabetes mellitus. Blood sugars are slightly elevated. No chest pain. No palpitations. No fever. On exam, alert and oriented x3. Pulse 88, blood pressure 131/83, respiration 15, temperature 98.7, pulse ox 100% on room air. HEENT: Conjunctivae normal. NECK: No jugular venous distention. CARDIOVASCULAR SYSTEM: S1, S2 muffled. RESPIRATORY SYSTEM: Breath sounds diminished at the bases. No rhonchi. No crackles. ABDOMEN: Soft. LEGS: Status post knee arthroplasty. NERVOUS SYSTEM: No focal deficit. LABS: Accu-Cheks 186, 211, 147. Other labs are hemoglobin A1c of 7.6. ASSESSMENT: 1. Status post left total knee arthroplasty. 2. Diabetes mellitus, type 2, with hyperglycemia. 3. Gastroesophageal reflux disease. 4. Hypertension. 5. Hyperlipidemia. 6. Degenerative joint disease. 7. History of hypothyroidism. 8. History of vascular disorder. 9. Insulin pump. 10.Peripheral vascular disease. 11.Adenoidectomy. 12. section. 13.Cholecystectomy. RECOMMENDATIONS AND DISCUSSION: I recommend to continue current medications, continue with symptomatic treatment. I recommend to continue with current medications. Continue with insulin pump. Closely follow with the patient's primary physician in the outpatient setting. The pump might need some readjustment to control the blood sugar better in the outpatient setting if the blood sugars are still uncontrolled. The current blood sugars could indicate a hyperglycemic reaction to stress also. Closely follow with Orthopedic Surgery. Further recommendations to follow. MMODL / IJN: [id number] /
== END 2018-08-09 16:53 | disposition home health service (06) | DRG 470 ==
LOC: 2ORMAIN 05:42 → 4SSUR 14:06
PROVIDERS: ADMIT Orthopaedic Surgery; ATTEND Orthopaedic Surgery
PROC: 0SRC0J9 Replacement of Right Knee Joint with Synthetic Substitute, Cemented, Open Approach (ICD-10-PCS; principal; 2018-08-07 07:30)
DX: M17.12 Unilateral primary osteoarthritis, left knee (principal); E03.9 Hypothyroidism, unspecified; E11.51 Type 2 diabetes mellitus with diabetic peripheral angiopathy without gangrene; E11.65 Type 2 diabetes mellitus with hyperglycemia; E78.5 Hyperlipidemia, unspecified; I10 Essential (primary) hypertension; J06.9 Acute upper respiratory infection, unspecified; K21.9 Gastro-esophageal reflux disease without esophagitis; Z79.899 Other long term (current) drug therapy; Z80.1 Family history of malignant neoplasm of trachea, bronchus and lung; Z87.891 Personal history of nicotine dependence; Z79.890 Hormone replacement therapy; Z79.4 Long term (current) use of insulin; Z88.2 Allergy status to sulfonamides; Z88.8 Allergy status to other drugs, medicaments and biological substances; Z90.49 Acquired absence of other specified parts of digestive tract; Z79.2 Long term (current) use of antibiotics; Z96.41 Presence of insulin pump (external) (internal)
CPT/HCPCS: 80048; 83036; 84132; 85025; 88300

== ENCOUNTER 2018-10-13 08:33 | Day surgery (SDC) | payer MEDICARE, OTHER ==
[2018-10-10 13:37] VITALS: BMI 27.4
--- NOTE | 2018-10-12 23:15 | HP ---
HISTORY AND PHYSICAL CHIEF COMPLAINT: Fluid in both ears. HISTORY OF PRESENT ILLNESS: This patient is a very pleasant 58-year-old female who was recently seen in my office for evaluation of a plugged sensation in both ears. At the time that the patient was seen in my office, clinical examination of the ears revealed chronic bilateral serous otitis media so-called glue ear. Approximately 2 years ago, the patient had ventilation tubes inserted and it was noted that these had extruded. The patient was placed on a course of oral steroids and returned approximately 2 weeks later and at that time, it was noted that her symptoms had not changed and there was still fluid present in both middle ear spaces. It was therefore recommended that the patient undergo a bilateral myringotomy with insertion of ventilation tubes. This will be done under IV sedation with MAC. PAST MEDICAL HISTORY: Past medical history reveals patient has: ALLERGIES: TO BIAXIN AND CELEXA MEDICATIONS: Current medications include desonide, methotrexate, metformin, Lasix, levothyroxine, lisinopril, Neurontin, pravastatin, minocycline, Flonase, Prilosec, Xanax and NovoLog insulin. REVIEW OF SYSTEMS: Cardiovascular system is positive for hypertension. Respiratory system is again negative. Gastrointestinal system is positive for GERD (gastroesophageal reflux disorder), metabolic. Endocrine system is positive for type 1 diabetes mellitus, hypothyroidism and hypercholesterolemia. The remainder of the review of systems is essentially unremarkable. PHYSICAL EXAMINATION: This patient is a 58-year-old female who was alert and cooperative. HEENT examination patient is normocephalic. Both tympanic membranes are dull with fluid in both middle ear spaces. Previously inserted ventilation tubes have extruded. Pupils equal, round, and reactive to light and accommodation. Extraocular movements are within normal limits. Intranasal examination reveals moderate to severe septal deviation with compensatory hypertrophy of the inferior turbinates and a moderate amount of mucus on the mucous membranes and draining down the posterior pharynx. Examination of the oropharynx, cranial nerves 2 through 12 and the remainder of the head and neck exam are within normal limits. Chest/ cardiovascular: Both lung frederick are clear to percussion and auscultation. The patient is in regular sinus rhythm, S1, S2 are present without evidence of any murmurs, S3s or S4s. Peripheral pulses are bilaterally symmetrical and within normal limits. ABDOMEN: There is no evidence of any masses, megaly, or tenderness. Abdomen is soft. Skin is unremarkable. Musculoskeletal and neurological are within normal limits. Pelvic and rectal exam: The pelvic and rectal exam is deferred at this time because the patient has this done on a regular basis at her family physician's office. The remainder of the physical exam is essentially unremarkable. IMPRESSION: Chronic bilateral serous otitis media. PLAN: The patient is scheduled to undergo a bilateral myringotomy with insertion of Jaiden T- type ventilation tubes under IV sedation with MAC. Attention RNs in the pre-surgical area: I have not ordered any pre-surgical prophylactic antibiotics for this patient. If the pharmacy department sends any pre- surgical prophylactic antibiotics to the pre-surgical area for this patient, that order should be cancelled and the medication should be returned to the pharmacy department. Please make sure that the patient's account is credited appropriately. I have discussed the risks, benefits and alternative therapies for the above-mentioned procedure and for both sedation/analgesia as well as necessary blood product administration, if indicated, as they pertain to this patient. The patient has indicated his or her understanding and acceptance of the risks and procedures discussed. MMTRANGL / THANHN: [id number] /
[~2018-10-13 08:33] MED LIST changes: +LACTATED RINGERS 1,000 ML IV SCH; -LIDOCAINE 1% 20 ML VIAL (10MG/ML) FOR IV START INTRADERMA PRN; -MELOXICAM 7.5 MG TAB PO ONE; +Pre Op ABX Message 1 EACH MISC MISCELLANE ONE; +SCOPOLAMINE 1.5MG/72HR PATCH TRANSDERM ONE; -TRANEXAMIC ACID 1,000 MG in SODIUM CHLORIDE 0.9% 100 ML IVPB ONE; -ceFAZolin IN SWFI 2 GM/20 ML SYRINGE IVP ONE; -fentaNYL (PF) 50 MCG/ML 2 ML AMP IV PRN
[2018-10-13 09:18] LABS: Glucose,Whole Blood 117 mg/dL (75-99)
[2018-10-13] MEDS ORDERED: LIDOCAINE 1% 20 ML VIAL (10MG/ML) FOR IV START INTRADERMA ONE (09:20)
[2018-10-13 09:26] VITALS: RESP 16; TEMP 97
[2018-10-13] MEDS ORDERED: PROPOFOL 10 MG/ML 20 ML VIAL IV ONE (10:00)
[2018-10-13] MEDS ORDERED: fentaNYL (PF) 50 MCG/ML 2 ML AMP ONE (10:00)
[2018-10-13] MEDS ORDERED: MIDAZOLAM 2 MG/2 ML VIAL ONE (10:00)
[2018-10-13] MEDS ORDERED: CIPROFLOXACIN-DEXAMETH 0.3-0.1% DROPS 7.5 ML BTL BOTH EARS ONE (10:22)
[2018-10-13] MEDS ORDERED: EPINEPHrine 1 MG/ML (MDV) 30 ML VIAL IRRIGATION ONE ×2 (10:29)
[2018-10-13 11:35] VITALS: BP 123/73; PULSE 73
--- NOTE | 2018-10-16 15:02 | OP ---
OPERATIVE REPORT DATE OF SERVICE: 10/13/2017 PREOPERATIVE DIAGNOSIS: Chronic bilateral serous otitis media. POSTOPERATIVE DIAGNOSIS: Chronic bilateral serous otitis media. ANESTHESIA: General. OPERATIVE PROCEDURE: Bilateral myringotomy with insertion of Jaiden-type ventilation tubes. SURGEON: Dr. Roth. COMPLICATIONS: None. PROCEDURE: The patient was placed on the Operating table in the supine position after uneventful induction and IV sedation, satisfactory general anesthesia was obtained. Next, the operating microscope was brought into position over the patient's right ear where after insertion of a #3 aural speculum, the external canal was cleansed of all wax and debris. The myringotomy knife was used to make an incision in the anterior inferior quadrant of the right tympanic membrane. The middle ear space was suctioned free of all fluid and a 1.1 mm Gunjan bobbin ventilation tube was inserted without any difficulty. Attention was then directed to the left ear where the same procedure was carried out using the operating microscope, #3 aural speculum, the external auditory canal was cleansed of all wax and debris. The myringotomy knife was used to make an incision in the anterior inferior quadrant of the left tympanic membrane and the middle ear space was suctioned free of all fluid. A 1.1 mm Gunjan bobbin ventilation tube was inserted without any difficulty. At this point, the procedure was terminated. There were no intraoperative complications. The patient tolerated the procedure well and was returned to the Recovery Room in satisfactory condition. MMODL / IJN: [id number] /
== END 2018-10-13 11:52 | disposition home or self-care (01) ==
LOC: OR 08:33
PROVIDERS: ATTEND Otolaryngology
DX: H65.23 Chronic serous otitis media, bilateral (principal); I10 Essential (primary) hypertension; K21.9 Gastro-esophageal reflux disease without esophagitis; E10.9 Type 1 diabetes mellitus without complications; E03.9 Hypothyroidism, unspecified; E78.00 Pure hypercholesterolemia, unspecified; I73.9 Peripheral vascular disease, unspecified; F39 Unspecified mood [affective] disorder; Z79.890 Hormone replacement therapy; Z79.4 Long term (current) use of insulin; Z79.899 Other long term (current) drug therapy; Z88.1 Allergy status to other antibiotic agents; Z88.8 Allergy status to other drugs, medicaments and biological substances; Z91.09 Other allergy status, other than to drugs and biological substances
CPT/HCPCS: 69436; J0171; J2250 ×2; J1100; J2405; J3010; J2704

== ENCOUNTER 2019-04-12 16:56 | Emergency (ER) | payer MEDICARE, OTHER ==
[2019-04-12 17:13] VITALS: BP 120/63; PULSE 99; RESP 20; TEMP 97.7
--- NOTE | 2019-04-12 18:28 | ED ---
Eye Problem HPI - General Chief complaint: Eye Problems Stated complaint: Eye Pain/Lump Time Seen by Provider: 04/12/19 17:19 Source: patient Mode of arrival: ambulatory Limitations: no limitations - History of Present Illness Initial comments: Patient is a 58-year-old female presenting with irritation to her left eye that started today. Patient recently had laser surgery done to both of her eyes one week ago. Patient has had no complications since the surgery. Patient states she woke up this morning with irritation to her left eye as well as some mild redness on her upper eyelid. Patient was concerned and wanted to be seen. Patient denied changes in her vision, headache, nausea, vomiting, fever, chills. Patient has no other complaints at this time. Upon arrival to ER, vital signs are stable. - Related Data Home Medications Medication Instructions Recorded Confirmed Furosemide [Lasix] 80 mg PO QAM 06/26/14 10/13/18 Lisinopril [Prinivil] 20 mg PO HS 06/26/14 10/13/18 metFORMIN HCL [Glucophage] 1,000 mg PO BID 06/26/14 10/13/18 Olopatadine HCl [Pataday] 1 drop BOTH EYES DAILY PRN 07/29/15 10/13/18 Insulin Aspart (For Pump) [NovoLOG 1 applicate SQ-PUMP CONTINUOUS 08/27/16 10/13/18 (For Pump)] DULoxetine HCL [Cymbalta] 60 mg PO HS 12/31/16 10/13/18 Levothyroxine Sodium 88 mcg PO QAM 12/31/16 10/13/18 Omeprazole [PriLOSEC] 40 mg PO QAM 12/31/16 10/13/18 Pravastatin Sodium [Pravachol] 40 mg PO HS 12/31/16 10/13/18 Ranitidine HCl 150 mg PO BID 12/31/16 10/13/18 DULoxetine HCL [Cymbalta] 30 mg PO HS 07/31/18 10/13/18 Previous Rx's Medication Instructions Recorded Erythromycin Ophth Oint [Romycin 1 applic LEFT EYE BID 5 Days #1 04/12/19 Ophth Oint] tube Allergies Allergy/AdvReac Type Severity Reaction Status Date / Time adhesive Allergy Rash/Hives Verified 04/12/19 17:13 citalopram hydrobromide Allergy Rash/Hives Verified 04/12/19 17:13 [From Celexa] clarithromycin [From Biaxin] Allergy Rash/Hives Verified 04/12/19 17:13 Review of Systems ROS Statement: Those systems with pertinent positive or pertinent negative responses have been documented in the HPI. ROS Other: All systems not noted in ROS Statement are negative. Past Medical History Past Medical History: Diabetes Mellitus, GERD/Reflux, Hyperlipidemia, Hypertension, Osteoarthritis (OA), Skin Disorder, Thyroid Disorder, Vascular Disorder Additional Past Medical History / Comment(s): INSULIN PUMP. Peripheral artery disease, varicose veins. Stomach ulcer. Eczema, psoriasis, rosacea. Frequent ear infection. History of Any Multi-Drug Resistant Organisms: None Reported Past Surgical History: Adenoidectomy, Section, Cholecystectomy, Ear Surgery, Joint Replacement, Orthopedic Surgery, Tonsillectomy, Tubal Ligation Additional Past Surgical History / Comment(s): right femur osteotomy, right knee arthroscopy, heel spurs-sherif, left knee replacement Past Anesthesia/Blood Transfusion Reactions: Motion Sickness Additional Past Anesthesia/Blood Transfusion Reaction / Comment(s): Diff IV starts. Past Psychological History: Depression Smoking Status: Former smoker Past Alcohol Use History: None Reported Past Drug Use History: None Reported - Past Family History Father Family Medical History: Cancer, Deep Vein Thrombosis (DVT) Additional Family Medical History / Comment(s): lung cancer General Exam - General Exam Comments Initial Comments: GENERAL: Well-appearing, well-nourished and in no acute distress. HEAD: Atraumatic, normocephalic. EYES: Pupils equal round and reactive to light, extraocular movements intact, sclera anicteric, conjunctiva are normal. There is mild erythema of the left upper eyelid. No pain with palpation. No active discharge. ENT: TMs normal, nares patent, oropharynx clear without exudates. Moist mucous membranes. NECK: Normal range of motion, supple without lymphadenopathy or JVD. LUNGS: Breath sounds clear to auscultation bilaterally and equal. No wheezes rales or rhonchi. HEART: Regular rate and rhythm without murmurs, rubs or gallops. EXTREMITIES: Normal range of motion, no pitting or edema. No clubbing or cyanosis. NEUROLOGICAL: Cranial nerves II through XII grossly intact. Normal speech, normal gait. PSYCH: Normal mood, normal affect. SKIN: Warm, Dry, normal turgor, no rashes. Limitations: no limitations Course Vital Signs 04/12/19 17:11 Temperature 97.7 F Pulse Rate 99 Respiratory 20 Rate Blood Pressure 120/63 O2 Sat by Pulse 100 Oximetry Medical Decision Making - Medical Decision Making Patient is a 58-year-old female presenting to the emergency department with left eye irritation 1 day. Patient had recent laser surgery performed on both eyes one week ago without Occasions. Patient presents today with a mild case of blepharitis. Patient will use warm compresses on the eye and if symptoms persist for another day patient will start erythromycin ointment. Patient will follow up with her eye doctor in the next few days as well. Patient is stable for discharge at this time. Return parameters were discussed with the patient and she verbalized understanding. Case discussed with Dr. Vogt. Disposition Clinical Impression: Blepharitis, left eye Disposition: HOME SELF-CARE Condition: Stable Instructions (If sedation given, give patient instructions): Blepharitis (ED) Additional Instructions: Please return to the Emergency Department if symptoms worsen or any other concerns. May use warm compresses to the left eyelid. Use antibiotic ointment as prescribed and follow-up with eye doctor if symptoms persist. Prescriptions: Erythromycin Ophth Oint [Romycin Ophth Oint] 1 applic LEFT EYE BID 5 Days #1 tube Is patient prescribed a controlled substance at d/c from ED?: No Referrals: Alo De La Vega MD [Primary Care Provider] - 1-2 days
== END 2019-04-12 18:38 | disposition home or self-care (01) ==
LOC: EC 16:56
DX: H01.006 Unspecified blepharitis left eye, unspecified eyelid (principal); F41.9 Anxiety disorder, unspecified; E11.9 Type 2 diabetes mellitus without complications; K21.9 Gastro-esophageal reflux disease without esophagitis; E78.5 Hyperlipidemia, unspecified; I10 Essential (primary) hypertension; M19.90 Unspecified osteoarthritis, unspecified site; E07.9 Disorder of thyroid, unspecified; I73.9 Peripheral vascular disease, unspecified; Z96.41 Presence of insulin pump (external) (internal); Z79.890 Hormone replacement therapy; Z79.899 Other long term (current) drug therapy; Z79.84 Long term (current) use of oral hypoglycemic drugs; Z87.11 Personal history of peptic ulcer disease; Z96.652 Presence of left artificial knee joint; Z98.890 Other specified postprocedural states; Z91.048 Other nonmedicinal substance allergy status; Z88.8 Allergy status to other drugs, medicaments and biological substances; Z88.1 Allergy status to other antibiotic agents
CPT/HCPCS: 99283

== ENCOUNTER → 2019-07-12 | Outpatient (CLI) | payer SELFPAY ==
[2019-07-12 13:42] LABS: HCT 37.2 % (34.0-46.0); HGB 12.2 gm/dL (11.4-16.0); MCH 30.8 pg (25.0-35.0); MCHC 32.7 g/dL (31.0-37.0); MCV 94.1 fL (80.0-100.0); Mean Platelet Volume 7.6; Platelet Count 237 k/uL (150-450); RBC 3.95 m/uL (3.80-5.40); RDW 15.2 % (11.5-15.5); WBC 4.9 k/uL (3.8-10.6)
[2019-07-12 18:46] LABS: ALT 28 U/L (8-44); AST 24 U/L (13-35)
== END | disposition home or self-care (01) ==
LOC: LABWHC1 12:25
PROVIDERS: ATTEND Dermatology Dermatopathology
DX: L40.0 Psoriasis vulgaris (principal); Z79.899 Other long term (current) drug therapy
CPT/HCPCS: 36415; 84450; 84460; 85027

== ENCOUNTER 2019-08-20 11:40 | Emergency (ER) | payer MEDICARE, OTHER ==
[2019-08-20 11:52] VITALS: RESP 18
--- NOTE | 2019-08-20 12:20 | ED ---
ENT HPI - General Chief complaint: ENT Stated complaint: right ear bleeding/congestion Time Seen by Provider: 08/20/19 11:54 Source: patient Mode of arrival: ambulatory Limitations: no limitations - History of Present Illness Initial comments: Patient is a 58-year-old female presenting to the emergency Department with complaints of right ear pain and muffled hearing 1 day. Patient states she has been battling upper respiratory type symptoms such as mild cough, chest congestion, sinus pressure, nasal drainage for the past week. Patient states she's been having increased discomfort in both of her ears for the past few days. Patient states she woke up this morning with muffled hearing in her right ear as well as blood in her pillow. Patient believes the blood is coming from her ear. She states she does have tubes present in her eardrums but is not sure if the right one still there. Patient denies any fever, shortness of breath, chest pain, headache. She has no other complaints at this time. Upon arrival to the ER vital signs are stable. - Related Data Home Medications Medication Instructions Recorded Confirmed Furosemide [Lasix] 80 mg PO QAM 06/26/14 10/13/18 Lisinopril [Prinivil] 20 mg PO HS 06/26/14 10/13/18 metFORMIN HCL [Glucophage] 1,000 mg PO BID 06/26/14 10/13/18 Olopatadine HCl [Pataday] 1 drop BOTH EYES DAILY PRN 07/29/15 10/13/18 Insulin Aspart (For Pump) [NovoLOG 1 applicate SQ-PUMP CONTINUOUS 08/27/16 10/13/18 (For Pump)] DULoxetine HCL [Cymbalta] 60 mg PO HS 12/31/16 10/13/18 Levothyroxine Sodium 88 mcg PO QAM 12/31/16 10/13/18 Omeprazole [PriLOSEC] 40 mg PO QAM 12/31/16 10/13/18 Pravastatin Sodium [Pravachol] 40 mg PO HS 12/31/16 10/13/18 Ranitidine HCl 150 mg PO BID 12/31/16 10/13/18 DULoxetine HCL [Cymbalta] 30 mg PO HS 07/31/18 10/13/18 Previous Rx's Medication Instructions Recorded Erythromycin Ophth Oint [Romycin 1 applic LEFT EYE BID 5 Days #1 04/12/19 Ophth Oint] tube Amoxicillin 500 mg PO BID 7 Days #14 capsule 08/20/19 Ofloxacin 0.3% Otic Soln [Floxin 5 drops RIGHT EAR BID 7 Days #1 08/20/19 0.3% Otic Soln] bottle Allergies Allergy/AdvReac Type Severity Reaction Status Date / Time adhesive Allergy Rash/Hives Verified 08/20/19 11:52 citalopram hydrobromide Allergy Rash/Hives Verified 08/20/19 11:52 [From Celexa] clarithromycin [From Biaxin] Allergy Rash/Hives Verified 08/20/19 11:52 Review of Systems ROS Statement: Those systems with pertinent positive or pertinent negative responses have been documented in the HPI. ROS Other: All systems not noted in ROS Statement are negative. Past Medical History Past Medical History: Diabetes Mellitus, GERD/Reflux, Hyperlipidemia, Hypertension, Osteoarthritis (OA), Skin Disorder, Thyroid Disorder, Vascular Disorder Additional Past Medical History / Comment(s): INSULIN PUMP. Peripheral artery disease, varicose veins. Stomach ulcer. Eczema, psoriasis, rosacea. Frequent ear infection. History of Any Multi-Drug Resistant Organisms: None Reported Past Surgical History: Adenoidectomy, Section, Cholecystectomy, Ear Surgery, Joint Replacement, Orthopedic Surgery, Tonsillectomy, Tubal Ligation Additional Past Surgical History / Comment(s): right femur osteotomy, right knee arthroscopy, heel spurs-sherif, left knee replacement Past Anesthesia/Blood Transfusion Reactions: Motion Sickness Additional Past Anesthesia/Blood Transfusion Reaction / Comment(s): Diff IV starts. Past Psychological History: Depression Smoking Status: Former smoker Past Alcohol Use History: None Reported Past Drug Use History: None Reported - Past Family History Father Family Medical History: Cancer, Deep Vein Thrombosis (DVT) Additional Family Medical History / Comment(s): lung cancer General Exam - General Exam Comments Initial Comments: GENERAL: Well-appearing, well-nourished and in no acute distress. HEAD: Atraumatic, normocephalic. EYES: Pupils equal round and reactive to light, extraocular movements intact, sclera anicteric, conjunctiva are normal. ENT: Left TM appears normal, tube in place. Right TM is erythematous, perforation, blood in the ear canal. Nares patent, oropharynx clear without exudates. Moist mucous membranes. NECK: Normal range of motion, supple without lymphadenopathy or JVD. LUNGS: Breath sounds clear to auscultation bilaterally and equal. No wheezes rales or rhonchi. HEART: Regular rate and rhythm without murmurs, rubs or gallops. ABDOMEN: Soft, nontender, normoactive bowel sounds. No guarding, no rebound. No masses appreciated. : Deferred EXTREMITIES: Normal range of motion, no pitting or edema. No clubbing or cyanosis. NEUROLOGICAL: Normal speech, normal gait. PSYCH: Normal mood, normal affect. SKIN: Warm, Dry, normal turgor, no rashes or lesions noted. Limitations: no limitations Course Vital Signs 08/20/19 08/20/19 11:49 12:30 Temperature 97.8 F 98.0 F Pulse Rate 80 81 Respiratory 18 18 Rate Blood Pressure 134/82 136/78 O2 Sat by Pulse 100 98 Oximetry Medical Decision Making - Medical Decision Making Patient is a 58-year-old female presenting with upper respiratory type symptoms as well as sinus congestion for the past 4 days. She has right ear pain and muffled hearing as well as blood drainage since this morning. On exam patient has right otitis media with perforation and blood in the canal. Rest of exam is unremarkable. Vitals are stable. Patient will be placed on antibiotics as well as antibody eardrops. She will follow-up with her doctor in a few days. She is stable for discharge at this time. Patient is in agreement with this plan of care. Return parameters were discussed with the patient she verbalized understanding. Case discussed with Dr. Pennington. Disposition Clinical Impression: Perforation of right tympanic membrane due to otitis media, Upper respiratory infection Disposition: HOME SELF-CARE Condition: Stable Instructions (If sedation given, give patient instructions): Ruptured Eardrum (ED) Additional Instructions: Please return to the Emergency Department if symptoms worsen or any other concerns. Take antibiotic as prescribed. Use antibiotic eardrops as prescribed. Follow-up with PCP as as discussed in a few days. Prescriptions: Amoxicillin 500 mg PO BID 7 Days #14 capsule Ofloxacin 0.3% Otic Soln [Floxin 0.3% Otic Soln] 5 drops RIGHT EAR BID 7 Days #1 bottle Is patient prescribed a controlled substance at d/c from ED?: No Referrals: Alo De La Vega MD [Primary Care Provider] - 1-2 days
[2019-08-20 12:30] VITALS: BP 136/78; PULSE 81; TEMP 98
== END 2019-08-20 12:29 | disposition home or self-care (01) ==
LOC: EC 11:40
DX: H66.91 Otitis media, unspecified, right ear (principal); H72.91 Unspecified perforation of tympanic membrane, right ear; J06.9 Acute upper respiratory infection, unspecified; E11.9 Type 2 diabetes mellitus without complications; K21.9 Gastro-esophageal reflux disease without esophagitis; E78.5 Hyperlipidemia, unspecified; I10 Essential (primary) hypertension; E07.9 Disorder of thyroid, unspecified; I73.9 Peripheral vascular disease, unspecified; M19.90 Unspecified osteoarthritis, unspecified site; F32.9 Major depressive disorder, single episode, unspecified; Z96.652 Presence of left artificial knee joint; Z87.891 Personal history of nicotine dependence; Z98.890 Other specified postprocedural states; Z79.4 Long term (current) use of insulin; Z79.890 Hormone replacement therapy; Z79.899 Other long term (current) drug therapy; Z91.048 Other nonmedicinal substance allergy status; Z88.8 Allergy status to other drugs, medicaments and biological substances; Z88.1 Allergy status to other antibiotic agents
CPT/HCPCS: 99283

== ENCOUNTER 2020-04-01 12:26 | Emergency (ER) | payer MEDICARE, OTHER ==
[2020-04-01 12:32] VITALS: BP 114/75; PULSE 113; RESP 18; TEMP 97.8
--- NOTE | 2020-04-01 12:48 | ED ---
ENT HPI - General Chief complaint: ENT Stated complaint: ENT Time Seen by Provider: 04/01/20 12:35 Source: patient, RN notes reviewed Mode of arrival: wheelchair Limitations: no limitations - History of Present Illness Initial comments: 59-year-old female presents emergency Department chief complaint of bilateral ear pressure difficulty hearing sinus congestion. Patient states is chronic sinus issues in which she's had to place in her ear. Patient states that symptoms haven't worsened last 1 week. No known fevers no chest pain or shortness of breath - Related Data Home Medications Medication Instructions Recorded Confirmed Furosemide [Lasix] 80 mg PO QAM 06/26/14 10/13/18 lisinopriL [Prinivil] 20 mg PO HS 06/26/14 10/13/18 metFORMIN HCL [Glucophage] 1,000 mg PO BID 06/26/14 10/13/18 Olopatadine HCl [Pataday] 1 drop BOTH EYES DAILY PRN 07/29/15 10/13/18 Insulin Aspart (For Pump) [NovoLOG 1 applicate SQ-PUMP CONTINUOUS 08/27/16 10/13/18 (For Pump)] DULoxetine HCL [Cymbalta] 60 mg PO HS 12/31/16 10/13/18 Levothyroxine Sodium 88 mcg PO QAM 12/31/16 10/13/18 Omeprazole [PriLOSEC] 40 mg PO QAM 12/31/16 10/13/18 Pravastatin Sodium [Pravachol] 40 mg PO HS 12/31/16 10/13/18 Ranitidine HCl 150 mg PO BID 12/31/16 10/13/18 DULoxetine HCL [Cymbalta] 30 mg PO HS 07/31/18 10/13/18 Previous Rx's Medication Instructions Recorded Erythromycin Ophth Oint [Romycin 1 applic LEFT EYE BID 5 Days #1 04/12/19 Ophth Oint] tube Amoxicillin 500 mg PO BID 7 Days #14 capsule 08/20/19 Ofloxacin 0.3% Otic Soln [Floxin 5 drops RIGHT EAR BID 7 Days #1 08/20/19 0.3% Otic Soln] bottle Amoxicillin/Potassium Clav 1 tab PO Q12HR #20 tab 04/01/20 [Augmentin 875-125 Tablet] Fluticasone Nasal Partridge [Flonase 2 spr EA NOSTRIL DAILY #1 bottle 04/01/20 Nasal Partridge] Allergies Allergy/AdvReac Type Severity Reaction Status Date / Time adhesive Allergy Rash/Hives Verified 04/01/20 12:32 citalopram hydrobromide Allergy Rash/Hives Verified 04/01/20 12:32 [From Celexa] clarithromycin [From Biaxin] Allergy Rash/Hives Verified 04/01/20 12:32 Review of Systems ROS Statement: Those systems with pertinent positive or pertinent negative responses have been documented in the HPI. ROS Other: All systems not noted in ROS Statement are negative. Past Medical History Past Medical History: Diabetes Mellitus, GERD/Reflux, Hyperlipidemia, Hypertension, Osteoarthritis (OA), Skin Disorder, Thyroid Disorder, Vascular Disorder Additional Past Medical History / Comment(s): INSULIN PUMP. Peripheral artery disease, varicose veins. Stomach ulcer. Eczema, psoriasis, rosacea. Frequent ear infection. History of Any Multi-Drug Resistant Organisms: None Reported Past Surgical History: Adenoidectomy, Section, Cholecystectomy, Ear Surgery, Joint Replacement, Orthopedic Surgery, Tonsillectomy, Tubal Ligation Additional Past Surgical History / Comment(s): right femur osteotomy, right knee arthroscopy, heel spurs-sherif, left knee replacement Past Anesthesia/Blood Transfusion Reactions: Motion Sickness Additional Past Anesthesia/Blood Transfusion Reaction / Comment(s): Diff IV starts. Past Psychological History: Depression Smoking Status: Never smoker Past Alcohol Use History: None Reported Past Drug Use History: None Reported - Past Family History Father Family Medical History: Cancer, Deep Vein Thrombosis (DVT) Additional Family Medical History / Comment(s): lung cancer General Exam Limitations: no limitations General appearance: alert, in no apparent distress Head exam: Present: atraumatic, normocephalic, normal inspection Eye exam: Present: normal appearance, PERRL, EOMI. Absent: scleral icterus, conjunctival injection, periorbital swelling ENT exam: Present: normal oropharynx, mucous membranes moist, other (Sinus tenderness). Absent: normal exam, TM's normal bilaterally (bilateral tubes noted) Neck exam: Present: normal inspection, full ROM. Absent: tenderness, meningismus, lymphadenopathy Respiratory exam: Present: normal lung sounds bilaterally. Absent: respiratory distress, wheezes, rales, rhonchi, stridor Cardiovascular Exam: Present: normal rhythm, tachycardia, normal heart sounds. Absent: systolic murmur, diastolic murmur, rubs, gallop, clicks GI/Abdominal exam: Present: soft, normal bowel sounds. Absent: distended, tenderness, guarding, rebound, rigid Course Vital Signs 04/01/20 12:29 Temperature 97.8 F Pulse Rate 113 H Respiratory 18 Rate Blood Pressure 114/75 O2 Sat by Pulse 100 Oximetry Medical Decision Making - Medical Decision Making Patient is in no signs of distress. Patient has chronic sinusitis. Patient has had PE tubes placed in the past. Patient treated for acute sinusitis. Patient placed on antibiotic for follow-up with PCP for recheck and return for any worsening symptoms. Disposition Clinical Impression: Acute sinusitis Disposition: HOME SELF-CARE Condition: Stable Instructions (If sedation given, give patient instructions): Sinusitis (ED) Additional Instructions: Please return to the Emergency Department if symptoms worsen or any other concerns. Prescriptions: Amoxicillin/Potassium Clav [Augmentin 875-125 Tablet] 1 tab PO Q12HR #20 tab Fluticasone Nasal Partridge [Flonase Nasal Partridge] 2 spr EA NOSTRIL DAILY #1 bottle Is patient prescribed a controlled substance at d/c from ED?: No Referrals: Alo De La Vega MD [Primary Care Provider] - 1-2 days Time of Disposition: 12:47
== END 2020-04-01 13:12 | disposition home or self-care (01) ==
LOC: EC 12:26
DX: J01.90 Acute sinusitis, unspecified (principal); F32.9 Major depressive disorder, single episode, unspecified; E11.9 Type 2 diabetes mellitus without complications; K21.9 Gastro-esophageal reflux disease without esophagitis; E78.5 Hyperlipidemia, unspecified; I10 Essential (primary) hypertension; M19.90 Unspecified osteoarthritis, unspecified site; E07.9 Disorder of thyroid, unspecified; I73.9 Peripheral vascular disease, unspecified; Z79.4 Long term (current) use of insulin; Z79.890 Hormone replacement therapy; Z79.899 Other long term (current) drug therapy; Z91.048 Other nonmedicinal substance allergy status; Z88.1 Allergy status to other antibiotic agents; Z88.8 Allergy status to other drugs, medicaments and biological substances; Z96.41 Presence of insulin pump (external) (internal); Z90.49 Acquired absence of other specified parts of digestive tract; Z96.652 Presence of left artificial knee joint; Z87.19 Personal history of other diseases of the digestive system
CPT/HCPCS: 99283

== ENCOUNTER 2020-10-06 10:33 | Day surgery (SDC) | payer MEDICARE, OTHER ==
[2020-10-01 09:47] VITALS: BMI 28.3
--- NOTE | 2020-10-05 17:06 | HP ---
HISTORY AND PHYSICAL CHIEF COMPLAINT: Chronic bilateral serous otitis media. HISTORY OF PRESENT ILLNESS: The patient is a 59-year-old female who was recently seen in my office complaining of having a plugged sensation in both ears. The patient had tubes placed in both ears in 2019. On a recent visit, clinical examination of the ears revealed that both tubes were completely occluded and nonfunctioning. In addition to this, there appeared to be fluid behind both tympanic membranes. It was recommend the patient undergo a repeat bilateral myringotomy, with insertion of standard T-type ventilation tubes under general anesthesia. PAST MEDICAL HISTORY: Reveals the patient has: ALLERGIES: TO BIAXIN AND CELEXA. CURRENT MEDICATIONS: Include desonide, methotrexate, metformin, Lasix, levothyroxine, lisinopril, Neurontin, Prevacid, minocycline, Flonase, Prilosec, Xanax, and NovoLog insulin. PREVIOUS SURGERIES: Include left total knee replacement, multiple bilateral myringotomies with insertion of ventilation tubes, repair of a right femur, the patient is 2 para, 0 , 2 C sections, 0 miscarriages. REVIEW OF SYSTEMS: CARDIOVASCULAR is positive for hypertension. RESPIRATORY: Negative. GASTROINTESTINAL: Positive for GERD, gastroesophageal reflux disorder. METABOLIC/ENDOCRINE is positive for hypercholesterolemia and hypothyroidism and type 1 diabetes mellitus. MUSCULOSKELETAL: Positive for osteoarthritis. The remainder review of systems essentially unremarkable. PHYSICAL EXAMINATION: Patient is normocephalic. Tympanic membranes are dull with fluid in both middle ear spaces. Both ventilation tubes are occluded and nonfunctioning. Pupils equal, round, react to light and accommodation. Extraocular movements within normal limits. Intranasal examination reveals moderate to severe septal deviation with compensatory hypertrophy of the inferior turbinates and a moderate amount of mucus on the mucous membranes and draining down the posterior pharynx. Examination of oropharynx, cranial nerves 2 through 12 and the remainder of the head and neck exam is unremarkable. CHEST/CARDIOVASCULAR: Both lung frederick are clear to percussion and auscultation. Patient is in regular sinus rhythm. S1 and S2 are present without any murmurs, S3s or S4s. Peripheral pulses are bilaterally symmetrical. ABDOMEN: There is no evidence any masses megaly or tenderness. Abdomen is soft. SKIN is unremarkable. MUSCULOSKELETAL unremarkable. NEUROLOGICAL: Within normal limits. PELVIC/RECTAL: Pelvic/rectal exam is deferred at this time because the patient has this done on a regular basis at her family physician's office. The remainder of physical exam is unremarkable. IMPRESSION: Chronic bilateral serous otitis media with occluded ventilation tubes. PLAN: The patient is scheduled to undergo a bilateral myringotomy with insertion of standard T-tubes under either IV sedation or general anesthesia with a LMA. Attention RNs in the pre-surgical area, the only pre-surgical prophylactic antibiotic I have ordered for this patient because of her previous knee replacement surgery is 2 grams of Ancef IV to be given once an intravenous line has been established. If the pharmacy department sends a different pre-surgical prophylactic antibiotic to the pre- surgical area for this patient, please cancel that order and return the medication to the pharmacy department and make sure that the patient's account is credited appropriately. I have discussed the risks, benefits and alternative therapies for the above-mentioned procedure and for both sedation/analgesia as well as necessary blood product administration, if indicated, as they pertain to this patient. The patient has indicated his or her understanding and acceptance of the risks and procedures discussed. MMODL / IJN: [id number] /
[~2020-10-06 10:33] MED LIST changes: -DEXAMETHASONE SOD PHOSPHATE 10 MG/ML 1 ML VIAL IV ONE; -HYDROmorphone 0.5 MG/0.5 ML SYRINGE IVP PRN; +LIDOCAINE 1% (10MG/ML) FOR IV START INTRADERMA PRN; -MIDAZOLAM (PF) 2 MG/2 ML VIAL IV PRN; -ONDANSETRON 4 MG/2 ML VIAL IVP ONE; -SCOPOLAMINE 1.5MG/72HR PATCH TRANSDERM ONE; +fentaNYL (PF) 50 MCG/ML 2 ML AMP IV PRN
[2020-10-06 11:03] VITALS: RESP 16; TEMP 97
[2020-10-06 11:35] LABS: Glucose,Whole Blood 128 mg/dL (75-99)
[2020-10-06] MEDS ORDERED: ONDANSETRON 4 MG/2 ML VIAL ONE (11:49)
[2020-10-06] MEDS ORDERED: ONDANSETRON 4 MG/2 ML VIAL IVP ONE (11:51)
[2020-10-06] MEDS ORDERED: OFLOXACIN 0.3% OTIC DROPS 5 ML BTL BOTH EARS ONE (12:23)
[2020-10-06] MEDS ORDERED: MIDAZOLAM 2 MG/2 ML VIAL ONE (12:43)
[2020-10-06] MEDS ORDERED: PROPOFOL 10 MG/ML 20 ML VIAL IV ONE (12:43)
[2020-10-06] MEDS ORDERED: fentaNYL (PF) 50 MCG/ML 2 ML AMP ONE (12:43)
[2020-10-06] MEDS ORDERED: EPINEPHrine 1 MG/ML (MDV) 30 ML VIAL TOPICAL ONE (13:13)
[2020-10-06] MEDS ORDERED: LACTATED RINGERS 1,000 ML IV ONE (13:34)
[2020-10-06 13:58] LABS: Albumin 4.2 g/dL (3.5-5.0); Calcium 9.8 mg/dL (8.4-10.2); Potassium 4.8 mmol/L (3.5-5.1); Total Bilirubin 0.5 mg/dL (0.2-1.3); Total Protein 6.7 g/dL (6.3-8.2)
[2020-10-06 14:55] VITALS: BP 103/63; PULSE 89
--- NOTE | 2020-10-06 16:20 | OP ---
OPERATIVE REPORT DATE OF SURGERY: 10/06/2020 PREOPERATIVE DIAGNOSIS: Chronic bilateral serous otitis media with occluded ventilation tubes. POSTOPERATIVE DIAGNOSIS: Chronic bilateral serous otitis media with occluded ventilation tubes. SURGEON: Dr. oRth. COMPLICATIONS: None. ESTIMATED BLOOD LOSS: Zero. Old ventilation tubes were removed. ANESTHESIA: General. OPERATIVE PROCEDURE: Bilateral myringotomy with insertion of [place] standard T-type ventilation tubes. OPERATIVE PROCEDURE DESCRIPTION: The patient was placed on the operating table in supine position, and after uneventful induction and IV sedation, satisfactory sedation was obtained. Next, the patient's right ear was draped and prepped in the usual and customary fashion, following which, using an alligator, the previously extruded ventilation tube along with old dried blood was removed without difficulty. Inspection revealed no active bleeding and therefore, using the myringotomy knife, an incision was made in the anterior inferior quadrant of the right tympanic membrane. The middle ear space was suctioned free of all fluid. Next, a [place] standard T-type ventilation tube was inserted after trimming the feet of the tube. This tube was inserted without difficulty in the usual and customary fashion. A small amount of adrenaline was placed in the patient's ear because in the past the patient has had a history of slight bleeding postoperatively which tended to plug up the tubes. Next, attention was directed to the patient's left ear, where the same procedure was carried out. After using a #3 aural speculum, the left external auditory canal was cleansed of all wax and debris. The wax and debris included an extruded T-tube which was imbedded in dried wax. This was removed with an alligator forceps without difficulty. Inspection revealed fluid in the left middle ear space. Therefore, using the myringotomy knife, an incision was made in the anterior inferior quadrant of the left tympanic membrane. The middle ear space was suctioned free of all fluid and a [place] standard T-type ventilation tube was inserted through the previously made myringotomy incision without any difficulty. Once again, a few drops of adrenaline were placed in this ear in an effort to reduce any problems with postoperative bleeding in this ear. At this point the procedure was terminated. There were no intraoperative complications. The patient tolerated the procedure well and was returned to the recovery room in satisfactory condition. MMODL / IJN: [id number] /
[2020-10-07 15:40] LABS: Urine Creatinine 90.9 mg/dL
== END 2020-10-06 14:56 | disposition home or self-care (01) ==
LOC: OR 10:33
PROVIDERS: ATTEND Otolaryngology
DX: H65.23 Chronic serous otitis media, bilateral (principal); Z96.652 Presence of left artificial knee joint; I10 Essential (primary) hypertension; E78.5 Hyperlipidemia, unspecified; E11.9 Type 2 diabetes mellitus without complications; E07.9 Disorder of thyroid, unspecified; F39 Unspecified mood [affective] disorder; M19.90 Unspecified osteoarthritis, unspecified site; K21.9 Gastro-esophageal reflux disease without esophagitis; Z98.890 Other specified postprocedural states; Z79.4 Long term (current) use of insulin; Z79.899 Other long term (current) drug therapy; Z88.1 Allergy status to other antibiotic agents; Z88.8 Allergy status to other drugs, medicaments and biological substances; Z79.890 Hormone replacement therapy
CPT/HCPCS: 80061; 80053; 84443; 82043; 82570; 83036; 69436; J0171; J2250; J2405; J3010; J2704

== ENCOUNTER → 2021-01-06 | Outpatient (CLI) | payer MEDICARE, OTHER ==
[2021-01-06 22:28] LABS: Hemoglobin A1C 7.2 % (4.0-6.0)
[2021-01-07 03:52] LABS: Chol/HDL Ratio 4.87; Cholesterol 185 mg/dL (0-200); LDL Cholesterol,Calculated 82.2 mg/dL (0.0-131.0)
== END | disposition home or self-care (01) ==
LOC: LABWHC1 10:52
PROVIDERS: ATTEND Internal Medicine Endocrinology, Diabetes & Metabolism
DX: E11.65 Type 2 diabetes mellitus with hyperglycemia (principal)
CPT/HCPCS: 36415; 80061; 83036; 84443

== ENCOUNTER → 2021-03-04 | Outpatient (CLI) | payer MEDICARE, OTHER | END | disposition home or self-care (01) | LOC: LABPAT 14:44 | PROVIDERS: ATTEND Orthopaedic Surgery | DX: Z01.812 Encounter for preprocedural laboratory examination (principal); M17.11 Unilateral primary osteoarthritis, right knee; Z22.322 Carrier or suspected carrier of Methicillin resistant Staphylococcus aureus | CPT/HCPCS: 87070 ==

== ENCOUNTER 2021-04-27 07:45 | Day surgery (SDC) | payer MEDICARE, OTHER ==
[2021-04-23 09:18] VITALS: BMI 28.7
--- NOTE | 2021-04-26 10:20 | HP ---
HISTORY AND PHYSICAL DATE OF SURGERY: 04/27/2020 Claribel Horowitz is a 60-year-old patient seen with symptomatic right knee osteoarthritis. We discussed options for treatment. She elected to proceed with right total knee arthroplasty. Consent regarding the procedure was obtained. PAST MEDICAL HISTORY: Hypertension, hyperlipidemia, hypothyroidism, gastroesophageal reflux disease. PAST SURGICAL HISTORY: ORIF, right distal femur, left total knee arthroplasty. DAILY MEDICATIONS: Furosemide, insulin, levothyroxine, lisinopril, metformin, pravastatin, Prilosec. ALLERGIES: BIAXIN AND CELEXA. SOCIAL HISTORY: She denies tobacco use. PHYSICAL EVALUATION OF THE RIGHT KNEE: She has a previous well-healed lateral incision. Range of motion is negative 3/4 to 115 degrees. There is a mild effusion present. Tenderness along the medial joint line. Positive medial Hi's. Crepitus in medial and patellofemoral compartments with range of motion. Pain with patellofemoral compression. Ligaments stable. Hip rotation without pain. Distal neurovascular exam is intact. RADIOGRAPHS: Radiographs of the right knee revealed severe patellofemoral compartment osteoarthritis, moderate medial and compartment osteoarthritis. There is also evidence of a blade plate in the distal femur with 5 screws consistent with a previous open reduction internal fixation. IMPRESSION: 1. Symptomatic right knee osteoarthritis. 2. Insulin-dependent diabetes. 3. Hypertension. 4. Hyperlipidemia. 5. Hypothyroidism. PLAN: Right total knee arthroplasty. MMODL / IJN: [id number] /
[~2021-04-27 07:45] MED LIST changes: +ACETAMINOPHEN TAB 500 MG TAB PO PRN; +DEXAMETHASONE SOD PHOSPHATE 4 MG/ML 1 ML VIAL IV ONE; +HYDROmorphone 0.5 MG/0.5 ML SYRINGE IVP PRN; -LACTATED RINGERS 1,000 ML IV SCH; -LIDOCAINE 1% (10MG/ML) FOR IV START INTRADERMA PRN; +MELOXICAM 7.5 MG TAB PO PRN; +ONDANSETRON 4 MG/2 ML VIAL IVP ONE; -Pre Op ABX Message 1 EACH MISC MISCELLANE ONE; +TRANEXAMIC ACID 1,000 MG in SODIUM CHLORIDE 0.9% 100 ML IVPB PRN; -fentaNYL (PF) 50 MCG/ML 2 ML AMP IV PRN
[2021-04-27 08:55] LABS: Glucose,Whole Blood 115 mg/dL (75-99)
[2021-04-27] MEDS ORDERED: LACTATED RINGERS 1,000 ML IV ONE ×2 (09:05→12:43)
[2021-04-27] MEDS ORDERED: ONDANSETRON 4 MG/2 ML VIAL ONE (09:11)
[2021-04-27] MEDS ORDERED: LIDOCAINE 1% INJ 10MG/ML (20 ML MDV) ONE (09:11)
[2021-04-27] MEDS ORDERED: MIDAZOLAM 2 MG/2 ML VIAL IVP ONE (09:47)
[2021-04-27] MEDS ORDERED: ceFAZolin 1,000 MG in SODIUM CHLORIDE 0.9% 1,000 ML IRRIGATION ONE (11:25)
--- NOTE | 2021-04-27 13:20 | P.OP ---
Date of Procedure: 04/27/21 Preoperative Diagnosis: Right knee osteoarthritis Postoperative Diagnosis: Right knee osteoarthritis Procedure(s) Performed: Right total knee arthroplasty Implants: 1. Depuy attune size 3 narrow right cruciate retaining cemented femur 2. Depuy attune size 3 fixed bearing cemented tibial baseplate 3. Depuy attune size 3 fixed bearing cruciate retaining 8 mm polyethylene tibial insert 4. Depuy attune 35 mm all polyethylene cemented patella Anesthesia: regional (Adductor canal catheter, Ipack block), spinal Surgeon: Michele Chaudhry Manager Flight #1: Aashish Locke Estimated Blood Loss (ml): 45 Pathology: other (Bone) Condition: stable Disposition: PACU Indications for Procedure: 60-year-old patient seen with symptomatic right knee osteoarthritis. After treatment options were discussed, she elected to proceed with total knee arthroplasty. Operative Findings: See description of procedure Description of Procedure: Patient was taken to the operative suite after having an adductor canal catheter placed by the department of anesthesia as well as and ipack block for postoperative pain management. Patient underwent a spinal anesthetic by the department of anesthesia. Patient was given preoperative IV intake antibiotics and TXA. A well-padded tourniquet was placed about the right lower extremity. The lower extremity was then prepped and draped in the normal sterile orthopedic fashion. The extremity was elevated, a tourniquet was insufflated to 300. A standard anterior incision was made sharply through skin. Dissection was taken down through the subcutaneous soft tissues down to the extensor mechanism. A medial arthrotomy was performed, patella was everted and knee was flexed. There was advanced osteoarthritis noted. I now introduced a pin along the distal femur for utilization of Orthalign as she did have significant retained hardware in the distal femur. I now secured the medial lateral screws. I now began utilizing the instrumentation by taking the knee through medial lateral flexion- extension to ascertain the appropriate distal cut utilizing Orthalign navigation. The guide was now secured. I held retractors in position while Aashish GRAY performed the distal femoral resection through the guide area we now removed her distal femoral cutting guide. We now placed our 4-in-1 femoral cutting block and positioned and it was secured with 2 ppins by Aashish GRAY while I held the block in position. The distal femoral finishing was now completed. A proximal tibial cutting guide was positioned. I held the guide in the appropriate position with both hands while Aashish GRAY inserted stabilizing pins into the guide. Proximal tibial cut was made. We now placed a trial femoral component into position, along with an appropriate size tibial tray and insert. We now took the knee through range of motion and had full extension good flexion and good overall soft tissue balance noted. The patella was everted and stabilized with 2 towel clips held by Aashish GRAY while I performed a flush with patellar quad tendon utilizing a fresh sawblade. We templated the patella, appropriate drill holes were made. An appropriate trial patella was positioned, knee was taken through full range of motion with the patella tracking very nicely. The trial patella was removed. Drill holes were made through the femoral component. All trial components were removed after marking off the appropriate rotation of the tibia. Retractors were now positioned along the proximal tibia. An appropriate keel punch was made with the appropriate size tibial guide by myself on Aashish GRAY assisted by holding retractors. At this point appropriate size implants were chosen and opened. The joint was irrigated copiously with pulse lavage mechanical irrigation. The posterior capsule was infiltrated with local analgesic. The wound was irrigated with pulse lavage mechanical irrigation. We mixed antibiotic methylmethacrylate. We placed the knee into flexion. We placed multiple retractors assisted by Aashish GRAY to expose the proximal tibia. Once the methyl methacrylate was ready, the tibial component was cemented into place removing any excess methylmethacrylate form by both myself and Aashish GRAY. The femoral component was cemented into place removing the removing any excess methylmethacrylate performed by both myself and Aashish GRAY. We then inserted the appropriate size polyethylene tibial insert. We made sure that it was locked into position. We took the knee into full extension, and then back in a flexion making sure we had removed any excess methylmethacrylate. The patellar component was then cemented down and secured with clamp. Excess methylmethacrylate removed. We kept the knee in full extension, patellar clamp in position until methylmethacrylate had hardened. Once it had hardened the patellar clamp was removed. The knee was taken through full range of motion. The patella tracked nicely. There was good soft tissue balancing. The tourniquet was now released. Additional hemostasis was achieved via electrocautery. A second gram of TXA was given. The wound again was irrigated with pulse lavage mechanical irrigation. The superficial soft tissues were infiltrated local analgesic. The extensor mechanism was repaired with Vicryl. We checked the repair with range of motion and it was stable. The subcutaneous soft tissues were repaired with Vicryl in layers. The skin was approximated with pernio/Dermabond. Sterile dressings were applied followed by loose web roll and Federico bandage. The patient was transferred to a bed, and taken to recovery in stable and satisfactory condition. Aashish GRAY assisted with this complex procedure.
[2021-04-27] MEDS ORDERED: NALOXONE 0.4 MG/ML 1 ML VIAL IV PRN (13:21)
[2021-04-27] MEDS ORDERED: HYDROmorphone 0.2 MG/1 ML SYRINGE IVP PRN (13:21)
[2021-04-27] MEDS ORDERED: HYDROmorphone 1 MG/ML 1 ML SYRINGE IVP PRN (13:21)
[2021-04-27] MEDS ORDERED: ONDANSETRON 4 MG/2 ML VIAL IVP PRN (13:21)
[2021-04-27] MEDS ORDERED: HYDROcodone/APAP 5-325MG 1 EACH TAB PO PRN (13:21)
[2021-04-27] MEDS ORDERED: HYDROmorphone 0.5 MG/0.5 ML SYRINGE IVP PRN (13:21)
[2021-04-27] MEDS ORDERED: ROPIVACAINE 0.2%-NS ON-Q PUMP 1,090 MG, EMPTY PAIN BALL 1 EACH MISCELLANE PRN (13:31)
--- NOTE | 2021-04-27 13:53 | XR ---
EXAMINATION TYPE: XR knee limited RT DATE OF EXAM: 04/27/2021 COMPARISON: NONE TECHNIQUE: Two views submitted HISTORY: Post op FINDINGS: There is a prosthetic knee in near anatomic alignment. There is soft tissue edema and emphysema. Garcia rgical casey noted. Diffuse osteopenia and evidence of previous trauma to the femur. IMPRESSION: 1. Postoperative change. Appears in near-anatomic alignment
[2021-04-27 15:15] LABS: Glucose,Whole Blood 99 mg/dL (75-99)
--- NOTE | 2021-04-27 16:15 | P.CONS ---
History of Present Illness - Reason for Consult Consult date: 04/27/21 Medical managment Requesting physician: Michele Chaudhry - Chief Complaint s/p R TKA - History of Present Illness Patient is a 60-year-old female with a past medical history of diabetes mellitus, hypertension, hyperlipidemia, psoriasis, hypothyroidism who was admitted for an elective right TKA due to osteoarthritis. Patient is now status post surgery. Medicine has been consult for medical management. Patient states that earlier this year she had a left TKA and her hospital course was unremarkable. She was discharged on the third day of admission. Patient jeyson patricio complaining of some soreness in her right knee. She otherwise has no acute complaints. Patient states that she has an insulin pump and she takes long- acting insulin depending on how much he eats ranging from 12-15 units. Patient states that she gives herself additional short-acting insulin through the insulin pump again depending on how much she eats. Patient is also on oral hypoglycemic agents. Patient says that his psoriasis is under control and she takes monthly injections of skyrizi. Review of Systems 10 ROS reviewed and are negative except as noted in HPI Past Medical History Past Medical History: Diabetes Mellitus, GERD/Reflux, Hyperlipidemia, Hypertension, Osteoarthritis (OA), Skin Disorder, Thyroid Disorder, Vascular Disorder Additional Past Medical History / Comment(s): HAS INSULIN PUMP. Peripheral artery disease, varicose veins, hx stomach ulcer, Eczema, Psoriasis, Rosacea, frequent ear infections-current earache, seeing Dr. Roth for History of Any Multi-Drug Resistant Organisms: None Reported Past Surgical History: Adenoidectomy, Section, Cholecystectomy, Ear Surgery, Joint Replacement, Orthopedic Surgery, Tonsillectomy, Tubal Ligation Additional Past Surgical History / Comment(s): Right femur osteotomy, right knee arthroscopy, heel spurs-bilaterally, left knee replacement, multiple myringotomy/tubes Past Anesthesia/Blood Transfusion Reactions: Motion Sickness Additional Past Anesthesia/Blood Transfusion Reaction / Comm: Difficult IV starts. Smoking Status: Former smoker - Past Family History Father Family Medical History: Cancer, Deep Vein Thrombosis (DVT) Additional Family Medical History / Comment(s): Lung cancer. Medications and Allergies Home Medications Medication Instructions Recorded Confirmed Type Furosemide [Lasix] 80 mg PO QAM 06/26/14 04/22/21 History lisinopriL [Prinivil] 20 mg PO HS 06/26/14 04/22/21 History metFORMIN HCL [Glucophage] 1,000 mg PO BID 06/26/14 04/22/21 History Insulin Aspart (For Pump) [NovoLOG 1 applicate SQ-PUMP CONTINUOUS 08/27/16 04/22/21 History (For Pump)] DULoxetine HCL [Cymbalta] 60 mg PO BID 12/31/16 04/22/21 History Levothyroxine Sodium 88 mcg PO QAM 12/31/16 04/22/21 History Pravastatin Sodium [Pravachol] 80 mg PO HS 12/31/16 04/22/21 History Dulaglutide [Trulicity] 1.5 mg SQ MO 10/01/20 04/22/21 History Azelastine HCl [Optivar 0.05% 1 drop BOTH EYES BID 04/22/21 04/22/21 History Ophth Soln] Canagliflozin [Invokana] 100 mg PO DAILY 04/22/21 04/22/21 History Famotidine [Pepcid] 20 mg PO BID 04/22/21 04/22/21 History Fenofibrate Nanocrystallized 145 mg PO HS 04/22/21 04/22/21 History [Fenofibrate] Fluticasone Nasal [place] [Flonase 2 spr EA NOSTRIL BID 04/22/21 04/22/21 History Nasal [place]] Icosapent Ethyl [Vascepa] 2 gm PO BID 04/22/21 04/22/21 History Risankizumab-Rzaa [Skyrizi] 75 mg SQ Q90D 04/22/21 04/22/21 History Insulin Glargine,Hum.rec.anlog 16 - 20 unit SQ HS PRN 04/23/21 04/23/21 History [Lantus Solostar Pen] Allergies Allergy/AdvReac Type Severity Reaction Status Date / Time adhesive Allergy Rash/Hives Verified 04/27/21 08:16 clarithromycin [From Biaxin] Allergy Rash/Hives Verified 04/27/21 08:16 Physical Exam Osteopathic Statement: *. No significant issues noted on an osteopathic structural exam other than those noted in the History and Physical/Consult. Vitals: Vital Signs Temp Pulse Resp BP BP Pulse Ox 04/27/21 15:00 83 16 105/62 100 04/27/21 14:45 81 16 102/63 100 04/27/21 14:30 68 16 107/56 98 04/27/21 14:13 76 16 112/58 100 04/27/21 13:58 67 16 112/58 100 04/27/21 13:43 79 16 114/57 100 04/27/21 13:28 97 F L 79 16 113/55 100 04/27/21 10:09 76 16 112/56 100 04/27/21 08:20 97.0 F L 77 16 105/51 100 Intake and Output 04/27/21 04/27/21 04/27/21 06:59 14:59 22:59 Intake Total 1251 Output Total 45 Balance 1206 Intake: IV 1251 Output: Estimated Blood Loss 45 Other: Weight 74.9 kg General: [Alert and oriented, well nourished, no acute distress]. Eye: [PERRL, EOMI, normal conjunctiva]. HENT: [Normocephalic, clear tympanic membranes, normal hearing, moist oral mucosa, no scleral icterus, no sinus tenderness]. Neck: [Supple, non-tender, no carotid bruits, no JVD, no lymphadenopathy]. Lungs: [Clear to auscultation and percussion, non-labored respiration]. Heart: [Normal rate, regular rhythm, no murmur, gallop or edema]. Abdomen: [Soft, non-tender, non-distended, normal bowel sounds, no masses]. Musculoskeletal: [Restricted range of motion of the right lower extremity. Bilateral lower extremity bandages intact and dry]. Skin: [Skin is warm, dry and pink, no rashes or lesions]. Neurologic: [Awake, alert, and oriented X3, CN II-XII intact]. Psychiatric: [Cooperative, appropriate mood and affect]. Results Labs: Abnormal Lab Results - Last 24 Hours (Table) 04/27/21 Range/Units 08:39 POC Glucose (mg/dL) 115 H (75-99) mg/dL Assessment and Plan Assessment: Osteoarthritis status post right TKA Pain control PT OT Management as per orthopedic surgery Diabetes mellitus At home patient is on insulin pump and gives additional short acting insulin depending on sliding scale insulin and she also gives herself Levemir ranging from 12 units to 16 units as per a sliding scale During hospitalization we will resume insulin pump. Sliding-scale insulin. We'll start patient on 6 units of Levemir and titrate for better blood glucose control Hold all oral hypoglycemic agents Hypertension Controlled. Resume home meds Hyperlipidemia Stable. Resume home meds Hypothyroidism Resume levothyroxine Lymphedema Resume home dose Lasix Psoriasis Stable Thank you for the consult and we will follow along with you DVT prophylaxis: Lovenox Anticipated length of stay < than [address]: home with home care A total of 50 minutes was spent on the care of this complex patient more than 50% of the time was spent in counseling and care coordination. Home meds reviewed
[2021-04-27 16:56] LABS: Glucose,Whole Blood 209 mg/dL (75-99)
[2021-04-27] MEDS: LACTATED RINGERS 1,000 ML IV SCH ×3 (17:13→20:53)
[2021-04-27] MEDS: Insulin Aspart (For Pump) 100 UNIT/ML VIAL SQ-PUMP SCH (17:13)
[2021-04-27] MEDS: INSULIN ASPART (NovoLOG) 100 UNIT/ML VIAL SQ SCH ×2 (17:14→22:03)
[2021-04-27 20:24] LABS: Glucose,Whole Blood 229 mg/dL (75-99)
[2021-04-27] MEDS ORDERED: FENOFIBRATE 160 MG TAB PO SCH (21:00)
[2021-04-27] MEDS ORDERED: lisinopriL 20 MG TAB PO SCH (21:00)
[2021-04-27] MEDS ORDERED: PRAVASTATIN SODIUM 80 MG TAB PO SCH (21:00)
[2021-04-27] MEDS ORDERED: INSULIN DETEMIR (LEVEMIR) 100 UNIT/ML SYR SQ SCH (21:00)
[2021-04-27] MEDS ORDERED: SENNOSIDES-DOCUSATE SODIUM 1 EACH TAB PO SCH (21:00)
[2021-04-27] MEDS: FLUTICASONE 50MCG/SPRAY NASAL 16GM EA NOSTRIL SCH (21:59)
[2021-04-27] MEDS: KETOTIFEN 0.025% OPHTH DROPS 5 ML BTL BOTH EYES SCH (22:00)
[2021-04-27] MEDS: FAMOTIDINE 20 MG TAB PO SCH (22:02)
[2021-04-27] MEDS: DULoxetine HCL 60 MG CAPSULE.DR PO SCH (22:02)
[2021-04-28] MEDS: LACTATED RINGERS 1,000 ML IV SCH ×2 (00:16→08:49)
[2021-04-28 01:44] VITALS: TEMP 98
[2021-04-28] MEDS: HYDROcodone/APAP 5-325MG 1 EACH TAB PO PRN ×3 (03:45→14:06)
[2021-04-28] MEDS ORDERED: ENOXAPARIN 30 MG/0.3 ML SYRINGE SQ SCH (06:00)
[2021-04-28] MEDS ORDERED: LEVOTHYROXINE 88 MCG TAB PO SCH (06:30)
[2021-04-28 06:55] LABS: Basophils % (A) 0 %; Eosinophils % (A) 1 %; HCT 28.4 % (34.0-46.0); HGB 9.3 gm/dL (11.4-16.0); Lymphocytes # (A) 1.1 k/uL (1.0-4.8); Lymphocytes % (A) 31 %; MCH 29.5 pg (25.0-35.0); MCHC 32.8 g/dL (31.0-37.0); MCV 89.7 fL (80.0-100.0); Mean Platelet Volume 7.8; Monocytes # (A) 0.3 k/uL (0-1.0); Monocytes % (A) 8 %; Neutrophils % (A) 58 %; Platelet Count 199 k/uL (150-450); RBC 3.17 m/uL (3.80-5.40); RDW 15.1 % (11.5-15.5); WBC 3.5 k/uL (3.8-10.6)
[2021-04-28 07:10] LABS: Glucose,Whole Blood 75 mg/dL (75-99)
[2021-04-28 07:12] LABS: African American GFR (CKD) 89 (>60 ml/min/1.73 sqM); Anion Gap 6 mmol/L; Blood Urea Nitrogen 17 mg/dL (7-17); Calcium 8.9 mg/dL (8.4-10.2); Carbon Dioxide 23 mmol/L (22-30); Chloride 107 mmol/L (98-107); Glucose 71 mg/dL (74-99); Non-African American GFR(CKD) 78 (>60 ml/min/1.73 sqM); Potassium 3.7 mmol/L (3.5-5.1); Sodium 136 mmol/L (137-145)
--- NOTE | 2021-04-28 07:44 | P.ANPRN ---
Procedure Note - Anesthesia - Nerve Block Performed Right Adductor Canal Infusion Time Out Performed: Yes Date of Procedure: 04/27/21 Procedure Start Time: 09:45 Procedure Stop Time: 09:59 Location of Patient: PreOp Indication: Acute Post-Operative Pain, Requested by Surgeon Sedation Type: Sedate with meaningful contact maintained Preparation: Sterile Prep, Sterile Dressing Position: Supine Catheter: Indwelling Needle Types: Pajunk Needle Gauge: 21 Ultrasound used to visualize needle placement: Yes Ultrasound used to observe medication spread: Yes Blood Aspirated: No Pain Paresthesia on Injection Noted: No Resistance on Injection: Normal Image Stored and Saved: Yes Events: Uneventful and Well Tolerated (Ropivacaine 0.5% 20 mL)
--- NOTE | 2021-04-28 07:45 | P.ANPRN ---
Procedure Note - Anesthesia - Nerve Block Performed Right Cameronck Single Time Out Performed: Yes Date of Procedure: 04/28/21 Procedure Start Time: 10:00 Procedure Stop Time: :09 Location of Patient: PreOp Indication: Acute Post-Operative Pain, Requested by Surgeon Sedation Type: Sedate with meaningful contact maintained Preparation: Sterile Prep Position: Supine Needle Types: Pajunk Needle Gauge: 21 Ultrasound used to visualize needle placement: Yes Ultrasound used to observe medication spread: Yes Blood Aspirated: No Pain Paresthesia on Injection Noted: No Resistance on Injection: Normal Image Stored and Saved: Yes Events: Uneventful and Well Tolerated (Routine 0.5% 20 mL plus dexamethasone 4 mg)
--- NOTE | 2021-04-28 07:46 | P.PN ---
Progress Note - Text 04/28/21 656am 60-year-old female status post total knee replacement by Dr. Chaudhry. Patient has an On-Q pump for postop pain control with the solution running at 8 mL an hour with a VAS of 3. Dressing clean dry and intact. Patient doing very well plan to continue On-Q pump infusion
[2021-04-28] MEDS: FAMOTIDINE 20 MG TAB PO SCH (08:45)
[2021-04-28] MEDS: DULoxetine HCL 60 MG CAPSULE.DR PO SCH (08:46)
[2021-04-28] MEDS: INSULIN ASPART (NovoLOG) 100 UNIT/ML VIAL SQ SCH ×2 (08:46→12:16)
[2021-04-28] MEDS: FLUTICASONE 50MCG/SPRAY NASAL 16GM EA NOSTRIL SCH (08:47)
[2021-04-28] MEDS: KETOTIFEN 0.025% OPHTH DROPS 5 ML BTL BOTH EYES SCH (08:52)
[2021-04-28] MEDS ORDERED: FUROSEMIDE 80 MG TAB PO SCH (09:00)
[2021-04-28] MEDS ORDERED: MELOXICAM 7.5 MG TAB PO SCH (09:00)
--- NOTE | 2021-04-28 10:53 | P.PN ---
Subjective Progress Note Date: 04/28/21 Principal diagnosis: Status post right total knee arthroplasty Patient evaluated today at bedside, she is resting in her hospital chair. She states that she did pretty well with physical therapy. She does notice some discomfort in that right lower extremity. She denies any headaches, lightheadedness, chest pain or shortness of breath. Objective - Vital Signs Vital signs: Vital Signs Temp 98.0 F 04/28/21 08:39 Pulse 71 04/28/21 08:39 Resp 16 04/28/21 08:39 BP 103/68 04/28/21 08:39 Pulse Ox 100 04/28/21 08:39 Intake & Output 04/27/21 04/28/21 04/28/21 18:59 06:59 18:59 Intake Total 1251 480 Output Total 45 Balance 1206 480 Weight 74.9 kg Intake: IV 1251 Intake, IV Titration 240 Amount Lactated Ringers 1,000 ml 240 @ 20 mls/hr IV .Q24H PILLO Rx#:[id number] Oral 240 Output: Urine 0 Estimated Blood Loss 45 Other: # Voids 1 - Exam Right lower extremity: Incision is clean, dry, and intact. The casey are in good condition. There is minimal soft tissue swelling and ecchymosis surrounding the medial and lateral aspects of the incision. Calf is soft, no tenderness with palpation. Plantar flexion, dorsiflexion, EHL, FHL are intact. Sensory exam to light touch throughout the extremity is intact, dorsal pedis pulses 2+. - Labs CBC & Chem 7: 04/28/21 06:29 04/28/21 06:29 Labs: Abnormal Lab Results - Last 24 Hours (Table) 04/27/21 04/27/21 04/28/21 Range/Units 16:54 20:22 06:29 WBC 3.5 L (3.8-10.6) k/uL RBC 3.17 L (3.80-5.40) m/uL Hgb 9.3 L (11.4-16.0) gm/dL Hct 28.4 L (34.0-46.0) % Sodium (137-145) mmol/L Glucose (74-99) mg/dL POC Glucose (mg/dL) 209 H 229 H (75-99) mg/dL 04/28/21 Range/Units 06:29 WBC (3.8-10.6) k/uL RBC (3.80-5.40) m/uL Hgb (11.4-16.0) gm/dL Hct (34.0-46.0) % Sodium 136 L (137-145) mmol/L Glucose 71 L (74-99) mg/dL POC Glucose (mg/dL) (75-99) mg/dL Assessment and Plan Assessment: Postoperative day #1 status post right total knee arthroplasty Plan: Pain control, continue with current medication. Planning for discharge on [place] and [place] GI and DVT prophylaxis, continue the Lovenox during hospital stay, we'll transition to aspirin 81 mg twice a day at discharge Wound care instructions were discussed with the patient, this to include icing and elevating along with showering instructions Encourage incentive spirometer Medical recommendations Continue with PT/OT Discharge planning: Patient does not drive, she would not have anybody available at home to help her today, planning for discharge home on 04/29/2021 Time with Patient: Less than 30
[2021-04-28 11:54] LABS: Glucose,Whole Blood 123 mg/dL (75-99)
[2021-04-28 15:13] VITALS: BP 91/58; PULSE 82; RESP 18
[2021-04-28] MEDS: Insulin Aspart (For Pump) 100 UNIT/ML VIAL SQ-PUMP SCH (15:59)
--- NOTE | 2021-04-28 16:05 | P.DS ---
Providers Date of admission: 04/27/2021 Expected date of discharge: 04/28/21 Attending physician: Michele Chaudhry Consults: 04/27/21 13:21 Consult Physician Routine Consulting Provider: Rhiannon Law Consult Reason/Comments: Medical management Do you want consulting provider notified?: Yes Primary care physician: Roopa Alanis MD Hospital Course: Date of admission: 04/27/2021 Date of discharge: 04/28/2021 Admission diagnosis: Status post right total knee arthroplasty Discharge diagnosis: Same Attending physician: Dr. Chaudhry Surgical procedures: Right total knee arthroplasty Brief history: Patient is a 60-year-old female with a history of progressive primary right knee osteoarthritis. At this point patient has failed conservative treatment measures and has opted to proceed with a elective right total knee arthroplasty. Hospital course: Details of patient's surgery can be found in operative report. Patient tolerated the procedure well and was subsequently transported to orthopedic floor. Patient's orthopeidc and medical care was provided daily. Patient had daily laboratory tests performed for evaluation of overall blood counts. Patient had daily physical therapy to include strengthening range of motion as well as education with walker ambulation. Patient was treated with Lovenox for their postoperative DVT prophylaxis during their inpatient stay. Patient was noted to have a relatively uneventful postoperative course. Patient reported satisfactory pain control with oral pain medications by postoperative day 0. Patient showed satisfactory progress with physical therapy. Patient moved steadily through the program and had no difficulty meeting the goals by postoperative day 1. Given patient's otherwise satisfactory course and having met physical therapy goals, plan is to discharge patient home on postoperative day 1. Discharge condition/disposition: Patient will be discharged home in stable condition. Discharge medications: Instructions are given on resumption of patient's normal daily medications per primary care recommendation, in addition patient will be prescribed [place] 5 mg/325 mg, Lyrica 75 mg, Colace 100 mg, aspirin 81 mg, Lyrica 75 mg. Discharge instructions: 1. Wound care and infection precautions, , no lotions, creams, moisturizers. No soaking, tubs, pools, hottubs. Do not scrub over the incision. 2. Weight-bear as tolerated with walker / cane until follow-up. 3. Ice and elevate when necessary. Do not exceed 20 minutes per hour with ice pack. 4. Utilize compression sleeve until seen at first follow up appointment. 5. Visiting nursing care. 6. Home physical therapy including home CPM. 7. Pain meds and anticoagulants per prescription. 8. Pain medication has potential to cause constipation. Increase oral fluid and fiber intake. Contact primary care provider if you have not had a bowel movement within 48 hours after discharge 9. No anti-inflammatory medication until discussed at first post operative visit, this including Motrin, Aleve, Mobic, Diclofenac. 10. Follow up in office at 2 weeks postop with Sebastien Gerber PA-C/Aashish Perla 11. Follow up with your primary care doctor 7-10 days after discharge. 12. Contact [facility] with any questions, . Procedures: Right total knee arthroplasty Patient Condition at Discharge: Good Plan - Discharge Summary Discharge Rx Participant: Yes New Discharge Prescriptions: New Aspirin [Adult Low Dose Aspirin EC] 81 mg PO BID #60 tab Docusate [Colace] 100 mg PO DAILY #30 capsule Cephalexin [Keflex] 500 mg PO Q6HR 5 Days #20 cap Pregabalin [Lyrica] 75 mg PO BID 14 Days #21 cap HYDROcodone/APAP 5-325MG [[place] 5-325] 1 - 2 tab PO Q6HR PRN #42 tab PRN Reason: Pain No Action lisinopriL [Prinivil] 20 mg PO HS Furosemide [Lasix] 80 mg PO QAM metFORMIN HCL [Glucophage] 1,000 mg PO BID Insulin Aspart (For Pump) [NovoLOG (For Pump)] 1 applicate SQ-PUMP CONTINUOUS Pravastatin Sodium [Pravachol] 80 mg PO HS DULoxetine HCL [Cymbalta] 60 mg PO BID Levothyroxine Sodium 88 mcg PO QAM Dulaglutide [Trulicity] 1.5 mg SQ MO Fluticasone Nasal Arthur [Flonase Nasal Arthur] 2 spr EA NOSTRIL BID Canagliflozin [Invokana] 100 mg PO DAILY Risankizumab-Rzaa [Skyrizi] 75 mg SQ Q90D Azelastine HCl [Optivar 0.05% Ophth Soln] 1 drop BOTH EYES BID Insulin Glargine,Hum.rec.anlog [Lantus Solostar Pen] 16 - 20 unit SQ HS PRN PRN Reason: hyperglycemia Fenofibrate Nanocrystallized [Fenofibrate] 145 mg PO HS Icosapent Ethyl [Vascepa] 2 gm PO BID Famotidine [Pepcid] 20 mg PO BID Discharge Medication List Furosemide [Lasix] 80 mg PO QAM 06/26/14 [History] lisinopriL [Prinivil] 20 mg PO HS 06/26/14 [History] metFORMIN HCL [Glucophage] 1,000 mg PO BID 06/26/14 [History] Insulin Aspart (For Pump) [NovoLOG (For Pump)] 1 applicate SQ-PUMP CONTINUOUS 08/27/16 [History] DULoxetine HCL [Cymbalta] 60 mg PO BID 12/31/16 [History] Levothyroxine Sodium 88 mcg PO QAM 12/31/16 [History] Pravastatin Sodium [Pravachol] 80 mg PO HS 12/31/16 [History] Dulaglutide [Trulicity] 1.5 mg SQ MO 10/01/20 [History] Azelastine HCl [Optivar 0.05% Ophth Soln] 1 drop BOTH EYES BID 04/22/21 [History] Canagliflozin [Invokana] 100 mg PO DAILY 04/22/21 [History] Famotidine [Pepcid] 20 mg PO BID 04/22/21 [History] Fenofibrate Nanocrystallized [Fenofibrate] 145 mg PO HS 04/22/21 [History] Fluticasone Nasal Arthur [Flonase Nasal Arthur] 2 spr EA NOSTRIL BID 04/22/21 [History] Icosapent Ethyl [Vascepa] 2 gm PO BID 04/22/21 [History] Risankizumab-Rzaa [Skyrizi] 75 mg SQ Q90D 04/22/21 [History] Insulin Glargine,Hum.rec.anlog [Lantus Solostar Pen] 16 - 20 unit SQ HS PRN 04/23/21 [History] Aspirin [Adult Low Dose Aspirin EC] 81 mg PO BID #60 tab 04/28/21 [Rx] Cephalexin [Keflex] 500 mg PO Q6HR 5 Days #20 cap 04/28/21 [Rx] Docusate [Colace] 100 mg PO DAILY #30 capsule 04/28/21 [Rx] HYDROcodone/APAP 5-325MG [[place] 5-325] 1 - 2 tab PO Q6HR PRN #42 tab 04/28/21 [Rx] Pregabalin [Lyrica] 75 mg PO BID 14 Days #21 cap 04/28/21 [Rx] Follow up Appointment(s)/Referral(s): [facility], [NON-STAFF] - As Needed Rasta Gerber, PATRICIA [PHYSICIAN INCOME TAX INVESTIGATOR] - 2 Weeks Activity/Diet/Wound Care/Special Instructions: Orthopedic Discharge Instructions: 1. Wound care and infection precautions, keep incision dry and covered while showering, no lotions, creams, moisturizers. No soaking, pools, hot tubs. Do not scrub over incision. 2. Weight-bear as tolerated with walker / cane until follow-up. 3. Ice and elevate when necessary. Do not exceed 20 minutes per hour with ice pack. 4. Utilize compression sleeve until seen at first follow up appointment. 5. Pain meds and anticoagulants per prescription. 6. Pain medication has potential to cause constipation. Increase oral fluid and fiber intake. Contact primary care provider if you have not had a bowel movement within 48 hours after discharge. 7. No anti-inflammatory medication until discussed at first post operative visit, this including Motrin, Aleve, Mobic, Diclofenac. 8. Follow up in office at 2 weeks postop with Sebastien Gerber PA-C/Aashish Locke PA-C 9. Follow up with your primary care doctor 7-10 days after discharge. 10. Contact [facility] with any questions, . Wound care instructions: 1. Do not remove casey 2. Keep incision covered and dry while showering Discharge Disposition: HOME WITH HOME HEALTH SERVICES
--- NOTE | 2021-04-28 18:07 | P.PN ---
Subjective Progress Note Date: 04/28/21 Patient is a 60-year-old female with a past medical history of diabetes mellitus type 2 on insulin pump with Lantus with me and invokana follwing with Dr. Green from endocrine, Hypothyroidism, and psoriasis. Patient seen and examined at bedside. She states she will work therapy this morning, audible. No nausea or vomiting. Appetite has not quite returned. We discussed holding her , so appetite returns as well as hold her long- acting insulin. She varifies understanding the concept. I did ask her to call Dr. Green's office if she is having issues regulating her insulin after discharge. General: non toxic, no distress, appears at stated age Derm: warm, dry Head: atraumatic, normocephalic, symmetric Eyes: EOMI, no lid lag, anicteric sclera Mouth: no lip lesion, mucus membranes moist Cardiovascular: S1S2 reg, no murmur, positive posterior tibial pulse bilateral, Lungs: CTA bilateral, no rhonchi, no rales , no accessory muscle use Abdominal: soft, nontender to palpation, no guarding, no appreciable organomegaly Ext: no gross muscle atrophy, no edema, no contractures, dressing in place over right knee with no soap through Neuro: CN II-XI grossly intact, no focal neuro deficits Psych: Alert, oriented, appropriate affect Patient is a 60-year-old female status post right TKA. Diabetes mellitus type 2 -Patient does follow with endocrinology. She has an insulin pump, takes long- acting insulin coverage religiously, and invokana,. We discussed that Invokana should not be used if you are at risk for dehydration. I have asked her to hold this medication until she is eating and drinking well - she will follow BS and call Dr. Green with issues Hypertension Controlled. Continue home meds Hyperlipidemia Stable. Conitnue home meds Hypothyroidism Conitnue levothyroxine Lymphedema Continue home dose Lasix Psoriasis Stable Patient medically optimized for discharge Thank you for allowing us to participate in the care of this pleasant patient. Do not hesitate to contact us with questions. Someone can be reached from the [facility] hospitalist group all hours of the day at [phone] or via perfect serve. Objective - Vital Signs Vital signs: Vital Signs Temp 98.0 F 04/28/21 08:39 Pulse 82 04/28/21 15:10 Resp 18 04/28/21 15:10 BP 91/58 04/28/21 15:10 Pulse Ox 100 04/28/21 15:10 Intake & Output 04/27/21 04/28/21 04/28/21 18:59 06:59 18:59 Intake Total 1251 480 Output Total 45 Balance 1206 480 Weight 74.9 kg Intake: IV 1251 Intake, IV Titration 240 Amount Lactated Ringers 1,000 ml 240 @ 20 mls/hr IV .Q24H PILLO Rx#:[id number] Oral 240 Output: Urine 0 Estimated Blood Loss 45 Other: # Voids 1 - Labs CBC & Chem 7: 04/28/21 06:29 04/28/21 06:29 Labs: Abnormal Lab Results - Last 24 Hours (Table) 04/27/21 04/28/21 04/28/21 Range/Units 20:22 06:29 06:29 WBC 3.5 L (3.8-10.6) k/uL RBC 3.17 L (3.80-5.40) m/uL Hgb 9.3 L (11.4-16.0) gm/dL Hct 28.4 L (34.0-46.0) % Sodium 136 L (137-145) mmol/L Glucose 71 L (74-99) mg/dL POC Glucose (mg/dL) 229 H (75-99) mg/dL 04/28/21 Range/Units 11:53 WBC (3.8-10.6) k/uL RBC (3.80-5.40) m/uL Hgb (11.4-16.0) gm/dL Hct (34.0-46.0) % Sodium (137-145) mmol/L Glucose (74-99) mg/dL POC Glucose (mg/dL) 123 H (75-99) mg/dL
== END 2021-04-28 17:54 | disposition home health service (06) ==
LOC: OR 07:45 → 4SSUR 15:06 → OR 04-28 17:54
PROVIDERS: ATTEND Orthopaedic Surgery
DX: M17.11 Unilateral primary osteoarthritis, right knee (principal); I10 Essential (primary) hypertension; E78.5 Hyperlipidemia, unspecified; E03.9 Hypothyroidism, unspecified; K21.9 Gastro-esophageal reflux disease without esophagitis; Z20.822 Contact with and (suspected) exposure to COVID-19; Z96.652 Presence of left artificial knee joint; Z90.49 Acquired absence of other specified parts of digestive tract; Z98.891 History of uterine scar from previous surgery; Z98.890 Other specified postprocedural states; Z78.0 Asymptomatic menopausal state; L71.9 Rosacea, unspecified; E11.9 Type 2 diabetes mellitus without complications; I89.0 Lymphedema, not elsewhere classified; L40.9 Psoriasis, unspecified; E66.9 Obesity, unspecified; Z68.29 Body mass index [BMI] 29.0-29.9, adult; Z96.41 Presence of insulin pump (external) (internal); Z83.3 Family history of diabetes mellitus; Z80.1 Family history of malignant neoplasm of trachea, bronchus and lung; Z81.1 Family history of alcohol abuse and dependence; Z83.79 Family history of other diseases of the digestive system; Z83.49 Family history of other endocrine, nutritional and metabolic diseases; Z79.84 Long term (current) use of oral hypoglycemic drugs; Z79.890 Hormone replacement therapy; Z79.4 Long term (current) use of insulin; Z79.899 Other long term (current) drug therapy; Z88.1 Allergy status to other antibiotic agents
CPT/HCPCS: 97161; 80048; 85025; 88300; 87635; 73560; 27447; J2250; J1100; J0690 ×3; J2405; J1650; J1170; J2795

== ENCOUNTER 2021-12-18 08:26 | Day surgery (SDC) | payer MEDICARE ==
--- NOTE | 2021-12-17 18:32 | HP ---
HISTORY AND PHYSICAL CHIEF COMPLAINT: Chronic bilateral serous otitis media. HISTORY OF PRESENT ILLNESS: This patient is a 61-year-old female who has undergone multiple insertions of ventilation tubes, both temporary and semi-permanent. On a recent visit to my office, it was noted that a recently inserted set of T-tubes had extruded, especially on the right side. It was recommended that the patient undergo repeat bilateral myringotomy with insertion of standard T-type ventilation tubes under IV sedation with M.A.C. ALLERGIES: BIAXIN and CELEXA. CURRENT MEDICATIONS: Current medications include minocycline, Flonase, Prilosec, Xanax, Prevacid, NovoLog insulin, methotrexate, metformin, desonide, Lasix, levothyroxine, lisinopril, Neurontin. Previous surgeries include left total knee replacement, multiple bilateral myringotomies with insertion of ventilation tubes, repair of right femur. The patient is 2 para 2 0 0 miscarriage. REVIEW OF SYSTEMS: Cardiovascular is positive for hypertension. RESPIRATORY: Negative. Gastrointestinal is positive for GERD (gastroesophageal reflux disorder). Metabolic/endocrine is positive for type 1 diabetes mellitus, hypercholesterolemia and hypothyroidism. Musculoskeletal is positive for osteoarthritis/rheumatoid arthritis. The remainder of the review of systems is essentially unremarkable. PHYSICAL EXAMINATION: This patient is a pleasant 61-year-old female who was alert and cooperative. HEENT examination: Patient is normocephalic. Examination of the ears reveals that both tubes appear to be extruded. Middle ear spaces are free of any fluid or infection. Pupils are equal, round, reactive to light and accommodation. Extraocular movements are within normal limits. Intranasal examination reveals moderate to severe septal deviation with compensatory hypertrophy of the inferior turbinates and a moderate amount of mucus on the mucous membranes and draining down the posterior pharynx. Examination of the oropharynx and the remainder of the head and neck exam all within normal limits. Chest/cardiovascular: Both lung frederick are clear to percussion and auscultation. The patient is in regular sinus rhythm. S1 and S2 are present without evidence any murmurs, S3s or S4s. Peripheral pulses are bilaterally symmetrical. ABDOMEN: There is no evidence any masses megaly or tenderness. The abdomen is soft. Skin is unremarkable. Musculoskeletal and neurological are within normal limits. Pelvic/rectal exam is deferred at this time because the patient has this done on a regular basis at her family physician's office. The remainder of physical exam is essentially unremarkable. IMPRESSION: Chronic bilateral serous otitis media. PLAN: The patient is scheduled to undergo bilateral myringotomy with insertion of standard T- type ventilation tubes under IV sedation with M.A.C. in the morning. Attention RNs in the pre-surgical area: I have ordered for this patient to receive 2 grams of Ancef IV to be given once an intravenous line has been established. If the pharmacy department sends a different type of presurgical prophylactic antibiotic to the presurgical area, that order should be cancelled and the medication should be returned to the pharmacy department. Please make sure that the patient's account is credited appropriately. I have discussed the risks, benefits and alternative therapies for the above-mentioned procedure and for both sedation/analgesia as well as necessary blood product administration, if indicated, as they pertain to this patient. The patient has indicated his or her understanding and acceptance of the risks and procedures discussed. MMTRANGL / IJN: [id number] /
[~2021-12-18 08:26] MED LIST changes: -ACETAMINOPHEN TAB 500 MG TAB PO PRN; +LACTATED RINGERS 1,000 ML IV SCH; -MELOXICAM 7.5 MG TAB PO PRN; +MIDAZOLAM 2 MG/2 ML VIAL IV PRN; +Pre Op ABX Message 1 EACH MISC MISCELLANE ONE; +SCOPOLAMINE 1 MG/72 HR PATCH TRANSDERM ONE; -TRANEXAMIC ACID 1,000 MG in SODIUM CHLORIDE 0.9% 100 ML IVPB PRN
[2021-12-18 08:57] VITALS: RESP 16; TEMP 97.6
[2021-12-18] MEDS ORDERED: LIDOCAINE 1% (10MG/ML) FOR IV START INTRADERMA ONE (09:09)
[2021-12-18 09:11] LABS: Glucose,Whole Blood 177 mg/dL (70-110)
[2021-12-18] MEDS ORDERED: PROPOFOL 10 MG/ML 20 ML VIAL IV ONE (09:48)
[2021-12-18] MEDS ORDERED: fentaNYL (PF) 50 MCG/ML 2 ML AMP ONE (09:48)
[2021-12-18] MEDS ORDERED: MIDAZOLAM 2 MG/2 ML VIAL ONE (09:48)
[2021-12-18] MEDS ORDERED: KETAMINE 10 MG/ML 20 ML VIAL ONE (09:48)
[2021-12-18] MEDS ORDERED: OFLOXACIN 0.3% OPHTH DROPS 5 ML BOTTLE BOTH EARS ONE ×2 (09:51)
[2021-12-18] MEDS ORDERED: LACTATED RINGERS 1,000 ML IV ONE (10:47)
[2021-12-18 11:34] VITALS: BP 109/69; PULSE 84
--- NOTE | 2021-12-22 19:37 | OP ---
OPERATIVE REPORT DATE OF SURGERY: 12/18/2021 PREOPERATIVE DIAGNOSIS: Chronic bilateral serous otitis media. POSTOPERATIVE DIAGNOSIS: Chronic bilateral serous otitis media. ANESTHESIA: IV sedation with M.A.C. OPERATIVE PROCEDURE: Bilateral myringotomy with insertion of standard Activent T-type ventilation tubes. OPERATING SURGEON: Dr. Roth. COMPLICATIONS: None. ESTIMATED BLOOD LOSS: Zero. OPERATIVE PROCEDURE DESCRIPTION: The patient was placed on the Operating table in the supine position after uneventful induction and IV sedation, satisfactory general anesthesia was obtained. Next, the operating microscope was brought into position over the patient?s right ear where after insertion of a #3 aural speculum, the external canal was cleansed of all wax and debris. The myringotomy knife was used to make an incision in the anterior inferior quadrant of the right tympanic membrane. The middle ear space was suctioned free of all fluid and a 1.1 mm Gunjan bobbin ventilation tube was inserted without any difficulty. Attention was then directed to the left ear where the same procedure was carried out using the operating microscope, #3 aural speculum, the external auditory canal was cleansed of all wax and debris. The myringotomy knife was used to make an incision in the anterior inferior quadrant of the left tympanic membrane and the middle ear space was suctioned free of all fluid. A 1.1 mm Gunjan bobbin ventilation tube was inserted without any difficulty. At this point, the procedure was terminated. There were no intraoperative complications. The patient tolerated the procedure well and was returned to the Recovery Room in satisfactory condition. MMODL / IJN: [id number] /
--- NOTE | 2021-12-23 08:14 | OP ---
OPERATIVE REPORT DATE OF SURGERY: 12/18/2021 PREOPERATIVE DIAGNOSIS: Chronic bilateral serous otitis media. POSTOPERATIVE DIAGNOSIS: Chronic bilateral serous otitis media. ANESTHESIA: IV sedation with M.A.C. OPERATIVE PROCEDURE: Bilateral myringotomy with insertion of standard Activent plastic T-type ventilation tubes. OPERATING SURGEON: Dr. Roth. COMPLICATIONS: None. OPERATIVE PROCEDURE DESCRIPTION: The patient was placed on the Operating table in the supine position after uneventful induction and IV sedation, satisfactory general anesthesia was obtained. Next, the operating microscope was brought into position over the patient?s right ear where after insertion of a #3 aural speculum, the external canal was cleansed of all wax and debris. The myringotomy knife was used to make an incision in the anterior inferior quadrant of the right tympanic membrane. The middle ear space was suctioned free of all fluid and a 1.1 mm Gunjan bobbin ventilation tube was inserted without any difficulty. Attention was then directed to the left ear where the same procedure was carried out using the operating microscope, #3 aural speculum, the external auditory canal was cleansed of all wax and debris. The myringotomy knife was used to make an incision in the anterior inferior quadrant of the left tympanic membrane and the middle ear space was suctioned free of all fluid. A 1.1 mm Gunjan bobbin ventilation tube was inserted without any difficulty. At this point, the procedure was terminated. There were no intraoperative complications. The patient tolerated the procedure well and was returned to the Recovery Room in satisfactory condition. MMODL / IJN: [id number] /
== END 2021-12-18 11:42 | disposition home or self-care (01) ==
LOC: OR 08:26
PROVIDERS: ATTEND Otolaryngology
DX: H65.23 Chronic serous otitis media, bilateral (principal); I10 Essential (primary) hypertension; E78.00 Pure hypercholesterolemia, unspecified; K21.9 Gastro-esophageal reflux disease without esophagitis; E03.9 Hypothyroidism, unspecified; E10.69 Type 1 diabetes mellitus with other specified complication; E78.5 Hyperlipidemia, unspecified; M06.9 Rheumatoid arthritis, unspecified; Z88.8 Allergy status to other drugs, medicaments and biological substances; Z88.3 Allergy status to other anti-infective agents; Z79.899 Other long term (current) drug therapy; Z79.51 Long term (current) use of inhaled steroids; Z79.4 Long term (current) use of insulin; Z79.890 Hormone replacement therapy; Z87.891 Personal history of nicotine dependence; F39 Unspecified mood [affective] disorder; Z96.41 Presence of insulin pump (external) (internal); Z91.09 Other allergy status, other than to drugs and biological substances; Z80.1 Family history of malignant neoplasm of trachea, bronchus and lung; Z82.49 Family history of ischemic heart disease and other diseases of the circulatory system
CPT/HCPCS: 69436; J2250; J1100; J0690; J2405; J3010; J2704

== ENCOUNTER → 2022-01-18 | Outpatient (CLI) | payer MEDICARE, OTHER ==
--- NOTE | 2022-01-19 04:21 | MR ---
EXAMINATION TYPE: MR shoulder LT wo con DATE OF EXAM: 01/18/2022 COMPARISON: None HISTORY: Left shoulder pain with limited range of motion. Multiplanar multiecho imaging of the left shoulder with no contrast. There is abnormal mixed signal in the humeral head at the articular surface and consistent with avasc ular necrosis. There is no collapse. There is shoulder joint effusion. There is severe narrowing of t he shoulder joint space. The subscapularis tendon is intact. The glenoid shalom appear intact and the biceps tendon is intact. There is retraction of the supraspinatus tendon and large full-thickness tear. There is severe narrow ing of the subacromial joint space. The infraspinatus tendon is intact. IMPRESSION: Extensive edema in the humeral head with fracture along the articular surface of the humeral head con sistent with chronic avascular necrosis. Osteoarthritic narrowing of the shoulder joint space. Large full-thickness tear of the supraspinatus tendon with subacromial impingement. Shoulder joint effusion .
== END | disposition home or self-care (01) ==
LOC: RADMRIMAIN 17:05
PROVIDERS: ATTEND Orthopaedic Surgery
DX: M25.412 Effusion, left shoulder (principal); M25.512 Pain in left shoulder

== ENCOUNTER 2022-03-04 05:39 | Day surgery (SDC) | payer MEDICARE ==
[2022-03-02 12:55] VITALS: BMI 27.8
--- NOTE | 2022-03-04 05:29 | HP ---
HISTORY AND PHYSICAL DATE OF SURGERY: 03/04/2022. HISTORY OF PRESENT ILLNESS: Claribel Horowitz is a 61-year-old patient seen with progressive left shoulder pain. We discussed options for treatment. She elected to proceed with left shoulder arthroscopy. Consent obtained. Medical clearance was provided. PAST MEDICAL HISTORY: Insulin-dependent diabetes, hypertension, hypothyroidism, hyperlipidemia, gastroesophageal reflux disease. PAST SURGICAL HISTORY: Total knee arthroplasty. DAILY MEDICATIONS: 1. Victoza. 2. Prilosec. 3. Pravastatin. 4. NovoLog insulin. 5. Metformin. 6. Levothyroxine. 7. Lisinopril. ALLERGIES: Biaxin, Celexa. SOCIAL HISTORY: She denies tobacco use. PHYSICAL EVALUATION OF THE LEFT KNEE: Flexion is 30 degrees. Abduction is 20 degrees. External rotation is 10 degrees with pain and weakness. Tenderness along the anterolateral acromion, rotator cuff insertion. Impingement is positive at 70 degrees. Cross-body adduction sign is positive. Drop-arm sign is positive. Distal neurovascular exam is intact. RADIOGRAPHS: Radiographs of the left shoulder revealed a type 2 anterior acromion. MRI left shoulder revealed a large rotator cuff tendon tear, impingement, acromioclavicular joint osteoarthritis, and early avascular necrosis. IMPRESSION: 1. Left shoulder impingement with rotator cuff tear. 2. Left shoulder osteoarthritis. 3. Hypertension. 4. Hyperlipidemia. 5. Hypothyroidism. 6. Insulin-dependent diabetes. PLAN: Left shoulder arthroscopy with subacromial decompression, arthroscopic rotator cuff repair, possible Hyacinth procedure and debridement. MMODL / IJN: [id number] /
[~2022-03-04 05:39] MED LIST changes: -DEXAMETHASONE SOD PHOSPHATE 4 MG/ML 1 ML VIAL IV ONE; -HYDROmorphone 0.5 MG/0.5 ML SYRINGE IVP PRN; -MIDAZOLAM 2 MG/2 ML VIAL IV PRN; -Pre Op ABX Message 1 EACH MISC MISCELLANE ONE; -SCOPOLAMINE 1 MG/72 HR PATCH TRANSDERM ONE
[2022-03-04] MEDS ORDERED: ONDANSETRON 4 MG/2 ML VIAL ONE (06:32)
[2022-03-04 06:44] LABS: Glucose,Whole Blood 143 mg/dL (70-110)
[2022-03-04] MEDS ORDERED: MIDAZOLAM 2 MG/2 ML VIAL IVP ONE (06:59)
[2022-03-04] MEDS ORDERED: fentaNYL (PF) 50 MCG/ML 2 ML AMP IVP ONE (06:59)
[2022-03-04] MEDS ORDERED: HYDROmorphone 0.5 MG/0.5 ML SYRINGE IVP PRN (07:00)
[2022-03-04] MEDS ORDERED: fentaNYL (PF) 50 MCG/ML 2 ML AMP IV PRN (07:00)
[2022-03-04] MEDS ORDERED: ROPIVACAINE 5 MG/ML 30 ML VIAL ONE (07:25)
[2022-03-04] MEDS ORDERED: LIDOCAINE 2% INJ 20 MG/ML (2 ML VIAL) ONE (07:25)
[2022-03-04] MEDS ORDERED: fentaNYL (PF) 50 MCG/ML 2 ML AMP ONE (07:25)
[2022-03-04] MEDS ORDERED: PHENYLEPHRINE-0.9% NACL SYG 1,000 MCG/10 ML SYRINGE ONE (07:25)
[2022-03-04] MEDS ORDERED: SUCCINYLCHOLINE CHLORIDE 200 MG/10 ML VIAL IV ONE (07:25)
[2022-03-04] MEDS ORDERED: PROPOFOL 10 MG/ML 20 ML VIAL IV ONE (07:25)
--- NOTE | 2022-03-04 08:27 | P.ANPRN ---
Procedure Note - Anesthesia - Nerve Block Performed Left Interscalene Time Out Performed: Yes (:58) Date of Procedure: 03/04/22 Procedure Start Time: Procedure Stop Time: :06 Location of Patient: PreOp Indication: Acute Post-Operative Pain, Requested by Surgeon (Dr Chaudhry) Sedation Type: Sedate with meaningful contact maintained Preparation: Sterile Prep Position: Supine Catheter: None Needle Types: Pajunk Needle Gauge: Other (see comment) (22g) Ultrasound used to visualize needle placement: Yes Ultrasound used to observe medication spread: Yes Injectate: 0.5% Ropivacaine (see comment for volume) (20cc) Blood Aspirated: No Pain Paresthesia on Injection Noted: No Resistance on Injection: Normal Image Stored and Saved: Yes Events: Uneventful and Well Tolerated
[2022-03-04] MEDS ORDERED: LACTATED RINGERS 1,000 ML IV ONE (09:01)
--- NOTE | 2022-03-04 09:18 | P.OP ---
Date of Procedure: 03/04/22 Preoperative Diagnosis: Left shoulder impingement Postoperative Diagnosis: 1. Left shoulder rotator cuff tear 2. Left shoulder impingement Procedure(s) Performed: 1. Left shoulder arthroscopic rotator cuff repair 2. Left shoulder arthroscopic subacromial decompression Implants: 34.75 Arthrex swivel lock anchors 15.5 Arthrex swivel lock anchor Anesthesia: GETA, regional (Interscalene block) Surgeon: Michele Chaudhry Die Tripper #1: Rasta Gerber Estimated Blood Loss (ml): 12 Pathology: none sent Condition: stable Disposition: PACU Indications for Procedure: 61-year-old patient seen with progressive left shoulder pain. After treatment options were discussed with her, she elected to proceed with arthroscopy. Operative Findings: See description of procedure Description of Procedure: Patient underwent an interscalene block by department of anesthesia. The patient was then taken to the operative suite. The patient underwent a general anesthetic by the department of anesthesia. The patient was placed into a lateral position and secured. There was appropriate padding of the bony prominence. Left shoulder was then prepped and draped in normal sterile orthopedic fashion. We placed the extremity in 10 pounds of longitudinal traction. A posterior incision was now made for a posterior working portal site. The trocar and cannula were inserted into the glenohumeral joint. Arthroscopy was initiated. Spinal needle was now inserted anteriorly, to ascertain the anterior working portal site. An incision was now made in that area, a trocar was inserted followed by a probe. There were grade 2/3 chondromalacia of the glenohumeral joint. The biceps was absent. Labrum was diminutive but stable appearing. There was a large rotator cuff tear I could clearly visualized from the glenohumeral joint. Instruments now removed from the glenohumeral joint. Utilizing the posterior working portal site, the trocar and cannula were inserted into the subacromial space. Arthroscopy initiated. I made an incision 2 fingerbreadths lateral to the acromion. I introduced my trocar followed by my ArthroCare ablator. I now began ablating thick subacromial bursal tissue, which exposed the undersurface of the anterior acromion. There was diminished subacromial space. There was a very prominent anterior acromion. A motorized bur was introduced and a subacromial decompression was performed. I also excised some osteophytes off the inferior aspect of the distal clavicle. The AC joint was visualized and noted to be moderately arthritic, I did not think enough toward a Hyacinth procedure. I turned my attention to the rotator cuff. There was a 3 cm rotator cuff tear. I debrided the margins getting down to stable tendon tissue. I introduced my motorized bur and abraded the footprint area, getting some petechial bleeding. I now made an accessory portal site off the lateral aspect of the acromion. I punched 2 holes medial for medial row fixation with the assistance of Sebastien GRAY carefully tapping the punch with a mallet as I held the punch and the camera. I now introduced both anchors into the pre- punched holes and Sebastien GRAY tapped them with the mallet as I held anchors and the camera. Sebastien GRAY now screwed the anchors in place a while I held the anchor guide and camera. All 8 limbs of suture were now passed through good bites of rotator cuff tendon. I now punched 2 holes for lateral row fixation again I held the punch and camera while Sebastien GRAY used a mallet to tap in the punch. We now passed sutures through both anchors and individually I introduced the anchors into the pre-punch holes I held the anchor guide in position with one hand holding the camera with the other hand while Sebastien GRAY tensioned the sutures and screwed in the anchors one at a time. All residual suture limbs were now clipped. We had good compression of the tendon along the entire footprint. Instruments now removed from the portal sites. All portal sites were approximated with nylon suture. Sterile dressings were applied followed by a shoulder immobilizer. Rasta GRAY assisted in this complex case. The patient was awakened, transferred to a bed, and taken to recovery in stable condition.
[2022-03-04 09:38] VITALS: TEMP 97
[2022-03-04 10:15] LABS: Glucose,Whole Blood 98 mg/dL (70-110)
[2022-03-04 10:27] VITALS: RESP 18
[2022-03-04 11:11] VITALS: BP 98/55; PULSE 80
== END 2022-03-04 11:30 | disposition home or self-care (01) ==
LOC: OR 05:39
PROVIDERS: ATTEND Orthopaedic Surgery
DX: M19.012 Primary osteoarthritis, left shoulder (principal); M75.102 Unspecified rotator cuff tear or rupture of left shoulder, not specified as traumatic; M75.42 Impingement syndrome of left shoulder; G89.18 Other acute postprocedural pain; E11.9 Type 2 diabetes mellitus without complications; I10 Essential (primary) hypertension; E03.9 Hypothyroidism, unspecified; E78.5 Hyperlipidemia, unspecified; K21.9 Gastro-esophageal reflux disease without esophagitis; Z79.4 Long term (current) use of insulin; Z79.84 Long term (current) use of oral hypoglycemic drugs; Z79.890 Hormone replacement therapy; Z79.899 Other long term (current) drug therapy; Z88.1 Allergy status to other antibiotic agents; Z88.8 Allergy status to other drugs, medicaments and biological substances
CPT/HCPCS: 29827; 29826; 64415; 76942; C1713 ×3; J2250; J0330; J2405; J0690; J3010; J2795; J2370; J2704; J2001

== ENCOUNTER → 2022-05-27 | Outpatient (CLI) | payer MEDICARE, OTHER ==
--- NOTE | 2022-05-27 17:41 | US ---
EXAMINATION TYPE: US thyroid st tissue head/neck DATE OF EXAM: 05/27/2022 COMPARISON: No priors available for comparison purposes. CLINICAL HISTORY: 61-year-old female E04.2 MULTINODULAR GOITER. TECHNIQUE: Multiple sonographic images of the thyroid gland are obtained. FINDINGS: GLAND SIZE: Right Lobe: 2.8 x 1.1 x 0.98 cm Overall Parenchyma: heterogenous Left Lobe: 1.8 x 0.87 x 0.90 cm Overall Parenchyma: heterogeneous Isthmus Thickness: 0.28 cm NODULES RIGHT: # of nodules measured on right: 2 1. 0.31 X 0.32 x 0.31 cm, upper , solid or almost completely solid, hypoechoic nodule, which is kierra ler than wide, with smooth margins, without echogenic foci. 2. 0.51 X 0.29 x 0.34 cm, lower , solid or almost completely solid, hypoechoic nodule, which is wid er than tall, with smooth margins, without echogenic foci. LEFT: # of nodules measured on left: 0 ISTHMUS: # of nodules measured in the isthmus: 0 Bilateral neck scanned, no evidence of lymphadenopathy. IMPRESSION: Small heterogeneous thyroid gland. Query chronic hypothyroidism. There are two small TR4 nodules in t he right lobe measuring 5 mm and 3 mm.
[2022-05-27 18:37] LABS: ALT 19 U/L (8-44); AST 19 U/L (13-35); African American GFR (CKD) 50.9 (60.0-200.0); Albumin 5.1 g/dL (3.8-4.9); Albumin/Globulin Ratio 2.04 (1.60-3.17); Alkaline Phosphatase 61 U/L (41-126); BUN/Creat Ratio 33.77 Ratio (12.00-20.00); Blood Urea Nitrogen 43.9 mg/dL (9.0-27.0); Calcium 10.9 mg/dL (8.7-10.3); Carbon Dioxide 25.5 mmol/L (20.0-27.5); Chloride 96 mmol/L (96-109); Chol/HDL Ratio 4.18 Ratio; Globulin 2.5 g/dL (1.6-3.3); Glucose 96 mg/dL (70-110); LDL Cholesterol,Calculated 123.1 mg/dL (0.0-131.0); Non-African American GFR(CKD) 43.9 (60.0-200.0); Potassium 5.3 mmol/L (3.5-5.5); Sodium 136 mmol/L (135-145); Total Protein 7.6 g/dL (6.2-8.2)
[2022-05-27 23:37] LABS: Microalbumin Creatinine Ratio <30 mg/g Creat (0-30)
== END | disposition home or self-care (01) ==
LOC: RADUSWWP 14:07
PROVIDERS: ATTEND Internal Medicine Endocrinology, Diabetes & Metabolism
DX: E04.2 Nontoxic multinodular goiter (principal); E11.65 Type 2 diabetes mellitus with hyperglycemia
CPT/HCPCS: 76536; 80053; 80061; 82043; 82570; 83036; 84443

== ENCOUNTER → 2022-07-20 | Outpatient (CLI) | payer MEDICARE, OTHER ==
--- NOTE | 2022-07-20 16:06 | MR ---
EXAMINATION TYPE: MR shoulder LT wo con DATE OF EXAM: 07/20/2022 COMPARISON: Prior MRI left shoulder January 18, 2022 HISTORY: Left shoulder pain, surgery Feb 2022. Pain with difficulty raising arm overhead since surge ry in February. TECHNIQUE: Multiplanar, multisequence imaging of the left shoulder is performed without contrast. FINDINGS: Rotator Cuff: Interval surgical repair with artifact from metallic anchors in the humeral head identi fied. Artifact from one metallic screw appears displaced lateral to the bone coronal image 17 for ref erence. There is recurrent full-thickness retracted tear of the distal supraspinatus tendon with larg e cleft or defect sagittal image 10 and coronal image 10. Tendon is retracted to level of the acromio clavicular joint. Infraspinatus tendon is intact. Mild to moderate generalized atrophy of the suprasp inatus muscle is more prominent from prior Acromioclavicular Joint: Mild narrowing and mild to moderate superior capsular hypertrophy Glenohumeral Joint: High position humeral head now identified. There is deformity along the superior medial aspect with heterogeneity and increased T2 signal through the medial humeral head extending in to the proximal metaphysis Labrum: The superior labrum is blunted system with degenerative tearing. Biceps Tendon: The long head of biceps remains not well seen and normal location and is suspected tor n from labral attachment. Bone marrow signal: Marked heterogeneity in the proximal humerus with area of curvilinear diminished T1 signal medial superior humeral head coronal image 17. Other: No additional significant abnormality is appreciated. IMPRESSION: 1. Recurrent full-thickness retracted tear of the distal supraspinatus tendon is present. There is no w high riding humeral head suggesting underlying instability. There is evidence of avascular necrosis redemonstrated. Torn labrum and long head of biceps tendon is seen currently.
== END | disposition home or self-care (01) ==
LOC: RADMRIMAIN 12:35
PROVIDERS: ATTEND Orthopaedic Surgery
DX: M75.112 Incomplete rotator cuff tear or rupture of left shoulder, not specified as traumatic (principal); M87.812 Other osteonecrosis, left shoulder; M24.112 Other articular cartilage disorders, left shoulder

== ENCOUNTER → 2022-09-01 | Outpatient (CLI) | payer MEDICARE, OTHER ==
[2022-09-01 16:28] LABS: ALT 27 U/L (8-44); AST 19 U/L (13-35); African American GFR (CKD) 51.4 (60.0-200.0); Albumin 4.7 g/dL (3.8-4.9); Albumin/Globulin Ratio 2.11 (1.60-3.17); Alkaline Phosphatase 52 U/L (41-126); BUN/Creat Ratio 32.87 Ratio (12.00-20.00); Blood Urea Nitrogen 42.4 mg/dL (9.0-27.0); Chloride 97 mmol/L (96-109); Chol/HDL Ratio 4.14 Ratio; Globulin 2.2 g/dL (1.6-3.3); Glucose 99 mg/dL (70-110); LDL Cholesterol,Calculated 71.2 mg/dL (0.0-131.0); Non-African American GFR(CKD) 44.3 (60.0-200.0); Potassium 4.4 mmol/L (3.5-5.5); Sodium 139 mmol/L (135-145); Total Protein 6.9 g/dL (6.2-8.2)
[2022-09-01 23:27] LABS: Microalbumin Creatinine Ratio <30 mg/g Creat (0-30); Urine Creatinine 95.2 mg/dL (28.0-217.0)
== END | disposition home or self-care (01) ==
LOC: LABWHC1 11:04
PROVIDERS: ATTEND Internal Medicine Endocrinology, Diabetes & Metabolism
DX: E11.65 Type 2 diabetes mellitus with hyperglycemia (principal)
CPT/HCPCS: 36415; 80053; 80061; 82043; 82570; 83036; 84443

== ENCOUNTER → 2022-09-15 | Outpatient (CLI) | payer MEDICARE, OTHER ==
[2022-09-15 18:02] LABS: HCT 38.3 % (37.2-46.3); HGB 12.3 g/dL (12.0-15.0); MCH 29.6 pg (27.0-32.0); MCHC 32.1 g/dL (32.0-37.0); MCV 92.1 fL (80.0-97.0); Mean Platelet Volume 10.3 fL (9.5-12.2); NRBC Per 100 WBC 0 /100 WBCS (0.0-0.0); Platelet Count 313 X 10*3/uL (140-440); RBC 4.16 X 10*6/uL (4.10-5.20); RDW 14.3 % (11.5-14.5)
[2022-09-15 18:29] LABS: INR 0.91 (0.90-1.11); Prothrombin Time 10.3 sec (9.9-11.9)
[2022-09-15 18:39] LABS: ALT 22 U/L (8-44); AST 20 U/L (13-35); African American GFR (CKD) 49.1 (60.0-200.0); Albumin 4.7 g/dL (3.8-4.9); Albumin/Globulin Ratio 2.09 (1.60-3.17); Alkaline Phosphatase 53 U/L (41-126); BUN/Creat Ratio 27.09 Ratio (12.00-20.00); Blood Urea Nitrogen 36.3 mg/dL (9.0-27.0); Calcium 9.9 mg/dL (8.7-10.3); Carbon Dioxide 25.7 mmol/L (20.0-27.5); Chloride 97 mmol/L (96-109); Chol/HDL Ratio 3.63 Ratio; Globulin 2.3 g/dL (1.6-3.3); Glucose 161 mg/dL (70-110); LDL Cholesterol,Calculated 88.6 mg/dL (0.0-131.0); Non-African American GFR(CKD) 42.4 (60.0-200.0); Potassium 4.6 mmol/L (3.5-5.5); Sodium 137 mmol/L (135-145)
== END | disposition home or self-care (01) ==
LOC: LABWHC1 11:47
PROVIDERS: ATTEND Physician Assistant Medical
DX: Z01.812 Encounter for preprocedural laboratory examination (principal); E11.9 Type 2 diabetes mellitus without complications; R53.83 Other fatigue
CPT/HCPCS: 36415; 80053; 80061; 85027; 85610

== ENCOUNTER 2022-10-05 06:04 | Day surgery (SDC) | payer MEDICARE, OTHER ==
--- NOTE | 2022-10-04 08:43 | P.HPOR ---
History of Present Illness H&P Date: 10/04/22 Chief Complaint: Left shoulder pain The patient's a 62-year-old vsont-cpah-dcktgiig female who presents with progressive left shoulder pain for the past several years. She underwent attempted arthroscopic rotator cuff repair in February 2022 with worsening of her symptoms. She is having pain with any attempted overhead use and at night. She's tried physical therapy without much relief. Review of Systems As per HPI Past Medical History Past Medical History: Diabetes Mellitus, GERD/Reflux, Hearing Disorder / Deafness, Hyperlipidemia, Hypertension, Osteoarthritis (OA), Renal Disease, Skin Disorder, Thyroid Disorder, Vascular Disorder Additional Past Medical History / Comment(s): HAS INSULIN PUMP. Peripheral artery disease, varicose veins, hx stomach ulcer, Eczema, Psoriasis, Rosacea, hx frequent ear infections, mild decreased kidney function, intermittent fluid retention lower legs History of Any Multi-Drug Resistant Organisms: None Reported Past Surgical History: Adenoidectomy, Section, Cholecystectomy, Ear Surgery, Joint Replacement, Orthopedic Surgery, Tonsillectomy, Tubal Ligation Additional Past Surgical History / Comment(s): Right femur osteotomy, right knee arthroscopy, heel spurs-bilaterally, bilateral knee replacements, multiple myringotomy/tubes, left shoulder arthroscopy Past Anesthesia/Blood Transfusion Reactions: Motion Sickness Additional Past Anesthesia/Blood Transfusion Reaction / Comment(s): Difficult IV starts. Smoking Status: Former smoker - Past Family History Father Family Medical History: Cancer, Deep Vein Thrombosis (DVT) Additional Family Medical History / Comment(s): Lung cancer. Medications and Allergies Home Medications Medication Instructions Recorded Confirmed Type Furosemide [Lasix] 80 mg PO QAM 06/26/14 09/27/22 History lisinopriL [Prinivil] 20 mg PO HS 06/26/14 09/27/22 History metFORMIN HCL [Glucophage] 1,000 mg PO BID 06/26/14 09/27/22 History DULoxetine HCL [Cymbalta] 60 mg PO BID 12/31/16 09/27/22 History Levothyroxine Sodium 88 mcg PO QAM 12/31/16 09/27/22 History Pravastatin Sodium [Pravachol] 80 mg PO HS 12/31/16 09/27/22 History Dulaglutide [Trulicity] 3 mg SQ MO 10/01/20 09/27/22 History Azelastine HCl [Optivar 0.05% 1 drop BOTH EYES BID 04/22/21 09/27/22 History Ophth Soln] Famotidine [Pepcid] 20 mg PO DAILY 04/22/21 09/27/22 History Fenofibrate Nanocrystallized 145 mg PO HS 04/22/21 09/27/22 History [Fenofibrate] Insulin Glargine,Hum.rec.anlog 10 unit SQ HS 04/23/21 09/27/22 History [Lantus Solostar Pen] Canagliflozin [Invokana] 100 mg PO DAILY 09/27/22 09/27/22 History Cetirizine HCl [Zyrtec] 10 mg PO DAILY 09/27/22 09/27/22 History Finerenone [Kerendia] 10 mg PO DAILY 09/27/22 09/27/22 History INSULIN LISPRO (For Pump) [humaLOG 0.01 units SQ-PUMP CONTINUOUS 09/27/22 09/27/22 History (For Pump)] Risankizumab-Rzaa [Skyrizi] 0 mg SQ Q30D 09/27/22 09/27/22 History Allergies Allergy/AdvReac Type Severity Reaction Status Date / Time adhesive Allergy Rash/Hives Verified 09/27/22 13:00 clarithromycin [From Biaxin] Allergy Rash/Hives Verified 09/27/22 13:00 Physical Examination - Shoulder left Appearance: effusion Effusion grade: grade 2 Pain: other (Pain with any attempted range of motion) ROM: forward flexion: 0 degrees (0 actively, 150 passively) ROM: internal rotation: lower lumbar ROM: external rotation: 10 degrees Strength: abduction: 3/5 Strength: forward flexion: 3/5 Strength: external rotation: 3/5 Tests: internal impingement tests: positive, external impingment tests: positive Results Patient is a well-developed well-nourished female approximately 5 foot 3, 157 pounds of mesomorphic habitus. HEENT exam is nonfocal, neck is supple. Examination of the left shoulder, she is tender about the anterior glenohumeral joint and subacromial space. Moderate subacromial crepitus is noted. Her distal neurovascular appears intact in the left upper extremity. 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 At this point she is quite limited having both weakness and pain despite attempted conservative treatment. After thorough discussion shaft proceed with surgery. We'll plan to proceed with left reverse total shoulder arthroplasty. We will likely keep the patient overnight postoperatively. Risks and benefits were discussed at length in layman's terms.
[~2022-10-05 06:04] MED LIST changes: +ACETAMINOPHEN TAB 500 MG TAB PO PRN; -LACTATED RINGERS 1,000 ML IV SCH; +MELOXICAM 7.5 MG TAB PO PRN; -ONDANSETRON 4 MG/2 ML VIAL IVP ONE; +TRANEXAMIC ACID IN NACL,ISO-OS 1,000 MG in SALINE 1 100ML.BAG IVPB PRN
[2022-10-05] MEDS ORDERED: HYDROmorphone 0.5 MG/0.5 ML SYRINGE IVP PRN ×2 (06:31→09:49)
[2022-10-05] MEDS ORDERED: LIDOCAINE 1% (10MG/ML) FOR IV START INTRADERMA PRN (06:31)
[2022-10-05] MEDS ORDERED: MIDAZOLAM 2 MG/2 ML VIAL IV PRN (06:31)
[2022-10-05] MEDS ORDERED: DEXAMETHASONE SOD PHOSPHATE 4 MG/ML 1 ML VIAL IV ONE (06:31)
[2022-10-05] MEDS ORDERED: ONDANSETRON 4 MG/2 ML VIAL IVP ONE (06:31)
[2022-10-05 06:53] LABS: Glucose,Whole Blood 145 mg/dL (70-110)
[2022-10-05] MEDS: LACTATED RINGERS 1,000 ML IV SCH (07:03)
[2022-10-05] MEDS ORDERED: MIDAZOLAM 2 MG/2 ML VIAL IVP ONE (07:20)
[2022-10-05] MEDS ORDERED: fentaNYL (PF) 50 MCG/ML 2 ML AMP IVP ONE (07:22)
[2022-10-05] MEDS ORDERED: ROPIVACAINE 5 MG/ML 30 ML VIAL ONE (07:56)
[2022-10-05] MEDS ORDERED: PROPOFOL 10 MG/ML 20 ML VIAL IV ONE (07:56)
[2022-10-05] MEDS ORDERED: PHENYLEPHRINE-0.9% NACL SYG 1,000 MCG/10 ML SYRINGE ONE (07:56)
[2022-10-05] MEDS ORDERED: LIDOCAINE 4% LTA KIT (4 ML) TOPICAL ONE (07:56)
[2022-10-05] MEDS ORDERED: TRANEXAMIC ACID IN NACL,ISO-OS 1,000 MG/100 ML BAG ONE (07:56)
[2022-10-05] MEDS ORDERED: SUCCINYLCHOLINE CHLORIDE 200 MG/10 ML VIAL IV ONE (07:56)
[2022-10-05] MEDS ORDERED: MIDAZOLAM 2 MG/2 ML VIAL ONE (07:56)
[2022-10-05] MEDS ORDERED: fentaNYL (PF) 50 MCG/ML 2 ML AMP ONE (07:56)
[2022-10-05] MEDS ORDERED: LIDOCAINE 2% INJ 20 MG/ML (2 ML VIAL) ONE (07:56)
[2022-10-05] MEDS ORDERED: ceFAZolin 1,000 MG in SODIUM CHLORIDE 0.9% 1,000 ML IRRIGATION ONE (08:30)
--- NOTE | 2022-10-05 08:46 | P.ANPRN ---
Procedure Note - Anesthesia - Nerve Block Performed Left Interscalene Time Out Performed: Yes (:) Date of Procedure: 10/05/22 Procedure Start Time: Procedure Stop Time: Location of Patient: PreOp Indication: Acute Post-Operative Pain, Requested by Surgeon (Dr Baltazar) Sedation Type: Sedate with meaningful contact maintained Preparation: Sterile Prep Position: Supine Catheter: None Needle Types: Pajunk Needle Gauge: Other (see comment) (22g) Ultrasound used to visualize needle placement: Yes Ultrasound used to observe medication spread: Yes Injectate: 0.5% Ropivacaine (see comment for volume) (20cc) Blood Aspirated: No Pain Paresthesia on Injection Noted: No Resistance on Injection: Normal Image Stored and Saved: Yes Events: Uneventful and Well Tolerated
[2022-10-05] MEDS ORDERED: LACTATED RINGERS 1,000 ML IV ONE (09:47)
[2022-10-05] MEDS ORDERED: HYDROcodone/APAP 5-325MG 1 EACH TAB PO PRN (09:49)
[2022-10-05] MEDS ORDERED: SENNOSIDES-DOCUSATE SODIUM 1 EACH TAB PO PRN (09:49)
[2022-10-05] MEDS ORDERED: HYDROmorphone 1 MG/ML 1 ML SYRINGE IVP PRN (09:49)
--- NOTE | 2022-10-05 10:08 | P.OP ---
Date of Procedure: 10/05/22 Preoperative Diagnosis: Left shoulder rotator cuff arthropathy Postoperative Diagnosis: Same Procedure(s) Performed: Left reverse total shoulder arthroplasty Implants: Depuy Delta Xtend size 8 press-fit humeral stem, size 1 epiphysis, 36+3 mm articular surface, 36 mm standard glenosphere with standard baseplate/20 mm post. Anesthesia: ezequiel IRIZARRY Surgeon: González Baltazar Muck Hauler #1: Aashish Locke Estimated Blood Loss (ml): 100 Pathology: other (Humeral head) Condition: stable Disposition: PACU Indications for Procedure: The patient's a 62-year-old female who presents with progressive left shoulder pain and weakness after previously undergoing attempted left rotator cuff repair. He discussion of the risks and benefits of operative intervention versus continued conservative measures was made with patient. She opted to proceed with surgery. Operative risks to include infection, neurovascular injury, fracture, component loosening/failure and possible need for subsequent procedures was discussed. Informed consent was obtained. Operative Findings: As below Description of Procedure: The patient was brought to the operating room, and after induction of general anesthesia was placed in a beachchair position. The bony prominences were appropriately padded. I examined the left shoulder. There was moderate lack of passive forward elevation and external rotation. The left upper extremity was prepped and draped in normal fashion. The bony outlines the coracoid process, distal clavicle, and acromion were outlined with a skin marker. A pulse centimeter deltopectoral incision was made lateral to the coracoid process. Skin was incised sharply. Subcutaneous tissues were divided bluntly. Electrocautery was used for hemostasis. The cephalic vein was identified and gently retracted laterally with the deltoid. The deltopectoral was bluntly developed. Subdeltoid adhesions were then released. The self-retaining retractor was placed. The conjoined tendon was retracted medially and the deltoid laterally. The biceps was previously released. The subscapularis was detached utilizing a peel technique. This was tagged. Pseudocapsule was exc ised. The head was then exposed. The shoulder was dislocated. A starting hole was made in line with the humeral shaft. The canal was reamed by hand up to size 8. There was good distal chatter. The cutting guide was then placed. I planned on 20 of retroversion. The humeral head cut was then made. The bone was removed in one fragment. Residual inferomedial osteophytes were removed flush with the ho-chunk cortical bone. Attention was then paid towards preparing the glenoid. An anterior and posterior retractors placed. The labrum was released from the 6-12 o'clock position. Remaining biceps was removed as well. A guidepin was placed in the inferior aspect of the glenoid with the guide slightly tilting inferior. The reamer was used down to a bleeding bony surface. The central peg hole was drilled. The standard baseplate was inserted with good purchase. Inferior, superior, and posterior locking screws the appropriate length were placed. Good purchase was obtained. The 36 mm glenosphere was inserted over a guidewire. This was fully seated. Care was taken to avoid any soft tissue interposition. Attention was then paid towards preparing the proximal humerus. The appropriate broach was placed and 20 of retroversion and was fully seated. An eccentric size 1 epiphyseal reamer was utilized. A size 8 stem with a size 1 epiphysis was placed and 20 of retroversion. Trial reduction was obtained with a 36 mm + 3 articular surface. The shoulder was taken through range of motion. He was felt to be stable in flexion and extension with internal and external rotation. I felt there was adequate adventist of soft tissue tension judging off the conjoined tendon. The shoulder was gently dislocated. The trial components were then removed. The final size 8 press-fit stem along with a size 1 epiphysis was fully seated. There was good rotational stability. The 36 mm + 3 articular surface was impacted. The shoulder again was gently reduced and taken through range of motion. Again it was felt to be stable in all planes. Pulsatile lavage was utilized. The subscapularis was a attached to the lesser tuberosity with #2 Ethibond suture. The deltopectoral interval was closed with interrupted 2-0 Vicryl sutures. The skin was reapproximated with 3-0 subcuticular Prolene suture. Steri-Strips were applied. A sterile dressing was applied. A sling w as placed. The patient was awoken from general anesthesia and transferred to recovery room in good condition. Blood loss was estimated at 100 mL. No complications were incurred. Sponge and needle counts were correct at the end the case. Aashish GRAY assisted during the major components of the case to include exposure, glenoid and humeral preparation, implantation, and closure.
[2022-10-05] MEDS: HYDROcodone/APAP 5-325MG 1 EACH TAB PO PRN ×2 (12:43→23:03)
[2022-10-05 13:03] LABS: Basophils % (A) 0 %; Eosinophils # (A) 0.1 k/uL (0-0.7); Eosinophils % (A) 2 %; HCT 34.2 % (34.0-46.0); HGB 11.4 gm/dL (11.4-16.0); Lymphocytes # (A) 1.1 k/uL (1.0-4.8); Lymphocytes % (A) 17 %; MCH 30.4 pg (25.0-35.0); MCHC 33.2 g/dL (31.0-37.0); MCV 91.5 fL (80.0-100.0); Mean Platelet Volume 7.7; Monocytes # (A) 0.3 k/uL (0-1.0); Monocytes % (A) 5 %; Neutrophils % (A) 75 %; Platelet Count 264 k/uL (150-450); RBC 3.74 m/uL (3.80-5.40); RDW 14.2 % (11.5-15.5); WBC 6.7 k/uL (3.8-10.6)
--- NOTE | 2022-10-05 17:29 | XR ---
EXAMINATION TYPE: XR shoulder limited LT DATE OF EXAM: 10/05/2022 10:40 AM INDICATION: Patient age:Female; 62 years old; Reason for study: s/p reverse left total shoulder arthroplasty; COMPARISON: None TECHNIQUE: The left shoulder was examined in frontal projection FINDINGS: Post left shoulder arthroplasty changes with a reverse arthroplasty. Hardware appears intact. Low ruchi g volumes. No fracture. Postsurgical subcutaneous lucencies noted. IMPRESSION: Post arthroplasty changes with hardware intact.
[2022-10-05] MEDS ORDERED: SODIUM CHLORIDE 0.9% 500 ML 500 ML IV ONE (20:24)
[2022-10-05] MEDS ORDERED: FENOFIBRATE 160 MG TAB PO SCH (21:00)
[2022-10-05] MEDS ORDERED: INSULIN DETEMIR (LEVEMIR) 100 UNIT/ML SYR SQ SCH (21:00)
[2022-10-05] MEDS: INSULIN ASPART (NovoLOG) 100 UNIT/ML VIAL SQ SCH (21:56)
[2022-10-05] MEDS: DULoxetine HCL 60 MG CAPSULE.DR PO SCH (21:56)
[2022-10-05] MEDS: KETOTIFEN 0.025% OPHTH DROPS 5 ML BTL BOTH EYES SCH (21:57)
[2022-10-06 03:56] VITALS: RESP 16
[2022-10-06] MEDS: HYDROcodone/APAP 5-325MG 1 EACH TAB PO PRN ×2 (05:49→11:58)
[2022-10-06] MEDS ORDERED: LEVOTHYROXINE 88 MCG TAB PO SCH (06:30)
[2022-10-06] MEDS: INSULIN ASPART (NovoLOG) 100 UNIT/ML VIAL SQ SCH (06:39)
[2022-10-06 07:52] VITALS: BP 138/75; PULSE 86; TEMP 99.1
[2022-10-06] MEDS: DULoxetine HCL 60 MG CAPSULE.DR PO SCH (08:30)
[2022-10-06] MEDS: KETOTIFEN 0.025% OPHTH DROPS 5 ML BTL BOTH EYES SCH (08:58)
[2022-10-06] MEDS ORDERED: LORATADINE 10 MG TAB PO SCH (09:00)
[2022-10-06] MEDS ORDERED: FAMOTIDINE 20 MG TAB PO SCH (09:00)
[2022-10-06] MEDS ORDERED: RIVAROXABAN 10 MG TAB PO SCH (09:00)
[2022-10-06] MEDS: LACTATED RINGERS 1,000 ML IV SCH (09:01)
--- NOTE | 2022-10-06 09:48 | P.PN ---
Subjective Progress Note Date: 10/06/22 Principal diagnosis: Status post reverse left shoulder arthroplasty Patient evaluated at bedside today, she is resting in her hospital bed. She has been up and ambulating and urinating with no difficulties. She is currently utilizing the arm sling. She states that she has noticed an increase in pain overnight. She denies any headaches, lightheadedness, chest pain or shortness of breath. Objective - Vital Signs Vital signs: Vital Signs Temp 99.1 F 10/06/22 07:05 Pulse 86 10/06/22 07:05 Resp 16 10/06/22 07:05 BP 138/75 10/06/22 07:05 Pulse Ox 98 10/06/22 07:05 FiO2 Intake & Output 10/05/22 10/06/22 10/06/22 18:59 06:59 18:59 Intake Total 1551 Output Total 100 Balance 1451 Weight 72.6 kg Intake: IV 1351 Oral 200 Output: Estimated Blood Loss 100 Other: Voiding Method Toilet # Voids 2 - Exam Left upper extremity: Postop dressing was removed today bedside, Steri-Strips and suture all in good position and condition. Mild swelling is noted throughout the extremity. The compartments both anterior and posterior the arm are soft and compressible. Her sensory exam light touch is intact throughout the extremity, radial ulnar pulses are 2+. - Labs CBC & Chem 7: 10/05/22 12:36 Labs: Abnormal Lab Results - Last 24 Hours (Table) 10/05/22 Range/Units 12:36 RBC 3.74 L (3.80-5.40) m/uL Assessment and Plan Assessment: Postoperative day #1 status post left reverse total shoulder arthroplasty Plan: Pain control, plan for discharge home on [place] 7.5 mg/325 mg DVT prophylaxis, aspirin 81 mg twice a day for 2 weeks Wound care instructions discussed, this concluded showering We discussed use of the arm sling when she can take breaks from it Medical recommendations Discharge planning: Stable for discharge home today Time with Patient: Less than 30
--- NOTE | 2022-10-06 09:59 | P.DS ---
Providers Date of admission: 10/05/2022 Expected date of discharge: 10/06/22 Attending physician: González Baltazar Consults: 10/05/22 09:52 Consult Physician Routine Consulting Provider: Po Hennessy Consult Reason/Comments: Medical Management s/p reverse left total shoulder arthroplasty Do you want consulting provider notified?: Yes Primary care physician: Yohana Agee Hospital Course: Date of admission: 10/05/2022 Date of discharge: 10/06/2022 Admission diagnosis: Status post reverse left total shoulder arthroplasty Discharge diagnosis: Same Attending physician: Dr. Baltazar Surgical procedures: Reverse left total shoulder arthroplasty Brief history: Patient is a 62-year-old female with a history of progressive left shoulder rotator cuff arthropathy. At this point patient has failed conservative treatment measures and has opted to proceed with a elective reverse left total shoulder arthroplasty. Hospital course: Details of patient's surgery can be found in operative report. Patient tolerated the procedure well and was subsequently transported to orthopedic floor. Patient's orthopeidc and medical care was provided daily. Patient had daily laboratory tests performed for evaluation of overall blood counts. Patient had daily physical therapy to include strengthening range of motion as well as education with walker ambulation. Patient was treated with Xarelto for their postoperative DVT prophylaxis during their inpatient stay. Patient was noted to have a relatively uneventful postoperative course. Patient reported satisfactory pain control with oral pain medications by postoperative day 0. Patient showed satisfactory progress with physical therapy. Patient moved steadily through the program and had no difficulty meeting the goals by postoperative day 1. Given patient's otherwise satisfactory course and having met physical therapy goals, plan is to discharge patient home on postoperative day 1. Discharge condition/disposition: Patient will be discharged home in stable condition. Discharge medications: Instructions are given on resumption of patient's normal daily medications per primary care recommendation, in addition patient will be prescribed Morrison 7.5 mg/325 mg, aspirin 81 mg. Discharge instructions: 1. Wound care and infection precautions, keep incision dry and covered while showering, no lotions, creams, moisturizers. No soaking, tubs, pools, hottubs. Do not scrub over the incision. 2. Patient will utilize arm sling, okay to take breaks from it to extend and bend the elbow along with him and wrist 3. Ice and elevate when necessary. Do not exceed 20 minutes per hour with ice pack. 4. Utilize compression sleeve until seen at first follow up appointment. 7. Pain meds and anticoagulants per prescription. 8. Pain medication has potential to cause constipation. Increase oral fluid and fiber intake. Contact primary care provider if you have not had a bowel movement within 48 hours after discharge 9. No anti-inflammatory medication until discussed at first post operative visit, this including Motrin, Aleve, Mobic, Diclofenac 10. Follow up in office at 2 weeks postop with Sebastien Gerber PA-C/Aashish Perla 11. Follow up with your primary care doctor 7-10 days after discharge. 12. Contact [facility] with any questions, . Procedures: Reverse left total shoulder arthroplasty Patient Condition at Discharge: Good Plan - Discharge Summary Discharge Rx Participant: Yes New Discharge Prescriptions: New HYDROcodone/APAP 7.5-325MG [[place] 7.5] 1 each PO Q6HR PRN #28 tab PRN Reason: Pain Aspirin [Adult Low Dose Aspirin EC] 81 mg PO BID #30 tab No Action lisinopriL [Prinivil] 20 mg PO HS Furosemide [Lasix] 80 mg PO QAM metFORMIN HCL [Glucophage] 1,000 mg PO BID Pravastatin Sodium [Pravachol] 80 mg PO HS DULoxetine HCL [Cymbalta] 60 mg PO BID Levothyroxine Sodium 88 mcg PO QAM Dulaglutide [Trulicity] 3 mg SQ MO Azelastine HCl [Optivar 0.05% Ophth Soln] 1 drop BOTH EYES BID Insulin Glargine,Hum.rec.anlog [Lantus Solostar Pen] 10 unit SQ HS Cetirizine HCl [Zyrtec] 10 mg PO DAILY INSULIN LISPRO (For Pump) [humaLOG (For Pump)] 0.01 units SQ-PUMP CONTINUOUS Fenofibrate Nanocrystallized [Fenofibrate] 145 mg PO HS Famotidine [Pepcid] 20 mg PO DAILY Canagliflozin [Invokana] 100 mg PO DAILY Finerenone [Kerendia] 10 mg PO DAILY Risankizumab-Rzaa [Skyrizi] 0 mg SQ Q30D Discharge Medication List Furosemide [Lasix] 80 mg PO QAM 06/26/14 [History] lisinopriL [Prinivil] 20 mg PO HS 06/26/14 [History] metFORMIN HCL [Glucophage] 1,000 mg PO BID 06/26/14 [History] DULoxetine HCL [Cymbalta] 60 mg PO BID 12/31/16 [History] Levothyroxine Sodium 88 mcg PO QAM 12/31/16 [History] Pravastatin Sodium [Pravachol] 80 mg PO HS 12/31/16 [History] Dulaglutide [Trulicity] 3 mg SQ MO 10/01/20 [History] Azelastine HCl [Optivar 0.05% Ophth Soln] 1 drop BOTH EYES BID 04/22/21 [History] Famotidine [Pepcid] 20 mg PO DAILY 04/22/21 [History] Fenofibrate Nanocrystallized [Fenofibrate] 145 mg PO HS 04/22/21 [History] Insulin Glargine,Hum.rec.anlog [Lantus Solostar Pen] 10 unit SQ HS 04/23/21 [History] Canagliflozin [Invokana] 100 mg PO DAILY 09/27/22 [History] Cetirizine HCl [Zyrtec] 10 mg PO DAILY 09/27/22 [History] Finerenone [Kerendia] 10 mg PO DAILY 09/27/22 [History] INSULIN LISPRO (For Pump) [humaLOG (For Pump)] 0.01 units SQ-PUMP CONTINUOUS 09/27/22 [History] Risankizumab-Rzaa [Skyrizi] 0 mg SQ Q30D 09/27/22 [History] Aspirin [Adult Low Dose Aspirin EC] 81 mg PO BID #30 tab 10/06/22 [Rx] HYDROcodone/APAP 7.5-325MG [[place] 7.5] 1 each PO Q6HR PRN #28 tab 10/06/22 [Rx] Follow up Appointment(s)/Referral(s): Aashish Locke, PATRICIA [PHYSICIAN TIE MILL OPERATOR] - 10/21/22 9:00 am Patient Instructions/Handouts: Shoulder Arthroplasty (DC) Activity/Diet/Wound Care/Special Instructions: Orthopedic Discharge Instructions: 1. Wound care and infection precautions, keep incision dry and covered while showering, no lotions, creams, moisturizers. No soaking, pools, hot tubs. Do not scrub over incision. 2. Nonweightbearing left upper extremity. 3. Ice when necessary. Do not exceed 20 minutes per hour with ice pack. 4. Utilize sling to left upper extremity 5. Pain meds and anticoagulants per prescription. 6. Pain medication has potential to cause constipation. Increase oral fluid and fiber intake. Contact primary care provider if you have not had a bowel movement within 48 hours after discharge. 7. No anti-inflammatory medication until discussed at first post operative visit, this including Motrin, Aleve, Mobic, Diclofenac. 8. Follow up in office at 2 weeks postop with Sebastien Gerber PA-C / Aashish Locke PA-C 9. Follow up with your primary care doctor 7-10 days after discharge. 10. Contact [facility] with any questions, . Discharge Disposition: HOME SELF-CARE
--- NOTE | 2022-10-06 12:57 | P.CONS ---
History of Present Illness - Reason for Consult Consult date: 10/06/22 Medical management diabetes mellitus, gastroesophageal reflux disease, hype Requesting physician: González Baltazar - Chief Complaint S/P Reverse left total shoulder arthroplasty - History of Present Illness This is a 62-year-old female past medical history of diabetes mellitus, hypertension,Gastroesophageal reflux disease, hypothyroidism, and multiple other medical issues status post elective reverse left total shoulder arthroplasty Secondary to progressive left shoulder rotator cuff arthropathy, failed conservative treatment. Tolerated procedure well. Mild borderline hypotension postop, received IV fluid hydration-significant improvement, blood pressures WNL. Denies chest pain, palpitations or shortness of breath. Ambulating, tolerating exertion well. Denies lightheadedness, dizziness or focal deficits. Left shoulder/arm in sling reporting improving pain. Isolated low-grade fever 99.1, denies chills or sweats. No cough this morning, reports she had initially coughed up clear phlegm post surgery. Positive diet intake with no nausea vomiting or diarrhea. Denies abdominal pain. Reports positive bowel movement last night. Expecting to be discharged today. Review of Systems Constitutional: Denied any fatigue denied any fever. Cardio vascular: denied any chest pain, palpitations Gastrointestinal denied any nausea vomiting Pulmonary: Denied any shortness of breath cough Neurologic denied any new focal deficits ROS Statement: Those systems with pertinent positive or pertinent negative responses have been documented in the HPI. ROS Other: All systems not noted in ROS Statement are negative. Past Medical History Past Medical History: Diabetes Mellitus, GERD/Reflux, Hearing Disorder / Deafness, Hyperlipidemia, Hypertension, Osteoarthritis (OA), Renal Disease, Skin Disorder, Thyroid Disorder, Vascular Disorder Additional Past Medical History / Comment(s): HAS INSULIN PUMP. Peripheral artery disease, varicose veins, hx stomach ulcer, Eczema, Psoriasis, Rosacea, hx frequent ear infections, mild decreased kidney function, intermittent fluid retention lower legs History of Any Multi-Drug Resistant Organisms: None Reported Past Surgical History: Adenoidectomy, Section, Cholecystectomy, Ear Surgery, Joint Replacement, Orthopedic Surgery, Tonsillectomy, Tubal Ligation Additional Past Surgical History / Comment(s): Right femur osteotomy, right knee arthroscopy, heel spurs-bilaterally, bilateral knee replacements, multiple myringotomy/tubes, left shoulder arthroscopy Past Anesthesia/Blood Transfusion Reactions: Motion Sickness Additional Past Anesthesia/Blood Transfusion Reaction / Comm: Difficult IV starts. Past Psychological History: Depression Smoking Status: Former smoker Past Alcohol Use History: None Reported Additional Past Alcohol Use History / Comment(s): Quit smoking 20 yrs ago, smoked 1 pack/week for < 1 yr. Past Drug Use History: None Reported - Past Family History Father Family Medical History: Cancer, Deep Vein Thrombosis (DVT) Additional Family Medical History / Comment(s): Lung cancer. Medications and Allergies Home Medications Medication Instructions Recorded Confirmed Type Furosemide [Lasix] 80 mg PO QAM 06/26/14 09/27/22 History lisinopriL [Prinivil] 20 mg PO HS 06/26/14 09/27/22 History metFORMIN HCL [Glucophage] 1,000 mg PO BID 06/26/14 09/27/22 History DULoxetine HCL [Cymbalta] 60 mg PO BID 12/31/16 09/27/22 History Levothyroxine Sodium 88 mcg PO QAM 12/31/16 09/27/22 History Pravastatin Sodium [Pravachol] 80 mg PO HS 12/31/16 09/27/22 History Dulaglutide [Trulicity] 3 mg SQ MO 10/01/20 09/27/22 History Azelastine HCl [Optivar 0.05% 1 drop BOTH EYES BID 04/22/21 09/27/22 History Ophth Soln] Famotidine [Pepcid] 20 mg PO DAILY 04/22/21 09/27/22 History Fenofibrate Nanocrystallized 145 mg PO HS 04/22/21 09/27/22 History [Fenofibrate] Insulin Glargine,Hum.rec.anlog 10 unit SQ HS 04/23/21 09/27/22 History [Lantus Solostar Pen] Canagliflozin [Invokana] 100 mg PO DAILY 09/27/22 09/27/22 History Cetirizine HCl [Zyrtec] 10 mg PO DAILY 09/27/22 09/27/22 History Finerenone [Kerendia] 10 mg PO DAILY 09/27/22 09/27/22 History INSULIN LISPRO (For Pump) [humaLOG 0.01 units SQ-PUMP CONTINUOUS 09/27/22 09/27/22 History (For Pump)] Risankizumab-Rzaa [Skyrizi] 0 mg SQ Q30D 09/27/22 10/05/22 History Aspirin [Adult Low Dose Aspirin EC] 81 mg PO BID #30 tab 10/06/22 Rx HYDROcodone/APAP 7.5-325MG [[place] 1 each PO Q6HR PRN #28 tab 10/06/22 Rx 7.5] Allergies Allergy/AdvReac Type Severity Reaction Status Date / Time adhesive Allergy Rash/Hives Verified 10/05/22 06:34 clarithromycin [From Biaxin] Allergy Rash/Hives Verified 10/05/22 06:34 Physical Exam Vitals: Vital Signs Temp Pulse Resp BP Pulse Ox 10/06/22 07:05 99.1 F 86 16 138/75 98 10/06/22 02:00 98.3 F 80 16 123/69 100 10/05/22 20:00 98.2 F 82 17 117/62 99 10/05/22 14:15 76 91/60 98 10/05/22 14:00 77 105/70 97 10/05/22 13:45 77 102/68 97 10/05/22 13:30 75 114/75 97 10/05/22 13:15 73 116/75 100 10/05/22 13:00 69 95/59 100 10/05/22 12:49 96.9 F L 75 16 104/68 100 10/05/22 12:45 72 109/73 99 Intake and Output 10/05/22 10/06/22 10/06/22 22:59 06:59 14:59 Intake Total 200 Balance 200 Intake: Oral 200 Other: Voiding Method Toilet # Voids 2 PHYSICAL EXAM: VITAL SIGNS: [As above] GENERAL: Sitting up in bed, no acute distress HEENT: Atraumatic, normocephalic, Conjunctivae normal. eyes normal.MMM. NECK: Supple, No JVD. No thyroid enlargement. No LNs CARDIOVASCULAR: S1, S2 regular.No murmur RESPIRATION: Breath sounds diminished in the bases. No rhonchi or crackles. No bronchial breathing. ABDOMEN: Soft, nontender . No guarding. no masses palpable. No ascites, No hepatosplenomegaly.Bowel sounds heard. LEGS: No edema. no swelling PSYCHIATRY: Alert and oriented X3, mood and affect normal. NERVOUS SYSTEM: Cranial N 2-12 grossly normal. No focal deficits. Strength and sensation grossly intact.. Skin: Warm and dry, no rash Results CBC & Chem 7: 10/05/22 12:36 Labs: Abnormal Lab Results - Last 24 Hours (Table) 10/05/22 10/06/22 Range/Units 12:36 05:34 RBC 3.74 L (3.80-5.40) m/uL Hemoglobin A1c 7.0 H (0.0-6.0) % Assessment and Plan Assessment: Progress of left shoulder rotator cuff arthropathy , Status post reverse left total shoulder arthroplasty Atelectasis, postop, expected outcome Borderline hypotension postop, expected outcome, resolved Diabetes mellitus, hemoglobin A1c 7 Gastroesophageal reflux disease History of hypertension Hyperlipidemia And multiple other medical issues Plan: Continue on current medication regime ,monitoring and symptomatic treatment. Aggressive pulmonary toileting with incentive spirometer ordered. Pain management, anticoagulation as per primary. Follow-up with PCP in one week. Thank you for the consult Dr. Baltazar. The impression and plan of care has been dictated as directed. : I performed a history and examination of this patient, discussed the same with the dictator. I agree with the dictator's note ,documented as a scribe. Any additional findings or plans will be noted.
== END 2022-10-06 12:34 | disposition home or self-care (01) ==
LOC: OR 06:04 → 4SSUR 10:02 → OR 10-06 12:34
PROVIDERS: ATTEND Orthopaedic Surgery
DX: M19.012 Primary osteoarthritis, left shoulder (principal); G89.18 Other acute postprocedural pain; M25.712 Osteophyte, left shoulder; Z96.612 Presence of left artificial shoulder joint; E11.9 Type 2 diabetes mellitus without complications; K21.9 Gastro-esophageal reflux disease without esophagitis; I10 Essential (primary) hypertension; E78.5 Hyperlipidemia, unspecified; Z79.4 Long term (current) use of insulin; Z90.89 Acquired absence of other organs; Z98.891 History of uterine scar from previous surgery; Z90.49 Acquired absence of other specified parts of digestive tract; Z96.653 Presence of artificial knee joint, bilateral; Z87.891 Personal history of nicotine dependence; Z80.1 Family history of malignant neoplasm of trachea, bronchus and lung; Z79.84 Long term (current) use of oral hypoglycemic drugs; Z79.899 Other long term (current) drug therapy
CPT/HCPCS: 64415; 76942; 85025; 88300; 83036; 73020; 23472; C1776; J2250; J0690 ×2; J2405; J3010; J1170 ×2

== ENCOUNTER → 2022-11-02 | Outpatient (CLI) | payer MEDICARE, OTHER ==
[2022-11-02 16:31] LABS: African American GFR (CKD) 55.1 (60.0-200.0); Albumin 4.8 g/dL (3.8-4.9); Albumin/Globulin Ratio 2.17 (1.60-3.17); Anion Gap 14.7 mmol/L (10.00-18.00); BUN/Creat Ratio 29.26 Ratio (12.00-20.00); Blood Urea Nitrogen 35.4 mg/dL (9.0-27.0); Calcium 10.3 mg/dL (8.7-10.3); Carbon Dioxide 23.8 mmol/L (20.0-27.5); Globulin 2.2 g/dL (1.6-3.3); Non-African American GFR(CKD) 47.6 (60.0-200.0); Potassium 5.1 mmol/L (3.5-5.5); Total Bilirubin 0.2 mg/dL (0.30-1.20); Total Protein 7.1 g/dL (6.2-8.2)
== END | disposition home or self-care (01) ==
LOC: LABWHC1 11:05
PROVIDERS: ATTEND Internal Medicine Endocrinology, Diabetes & Metabolism
DX: E11.65 Type 2 diabetes mellitus with hyperglycemia (principal)
CPT/HCPCS: 36415; 80053

== ENCOUNTER 2023-01-07 12:27 | Emergency (ER) | payer MEDICARE, OTHER ==
[2023-01-07 12:42] VITALS: TEMP 98.4
[2023-01-07] MEDS ORDERED: ACETAMINOPHEN TAB 500 MG TAB PO STA (13:22)
[2023-01-07 14:02] LABS: Appearance,Urine Clear (Clear); Bilirubin,Urine Negative (Negative); Blood,Urine Negative (Negative); Color,Urine Colorless; Glucose,Urine (UA) 2+ (Negative); Ketones,Urine Negative (Negative); Leukocyte Esterase,Urine Negative (Negative); Nitrite,Urine Negative (Negative); Protein,Urine Negative (Negative); Specific Gravity,Urine 1.005 (1.001-1.035); Urobilinogen,Urine <2.0 mg/dL (<2.0)
--- NOTE | 2023-01-07 14:08 | XR ---
EXAMINATION TYPE: XR chest 2V DATE OF EXAM: 01/07/2023 COMPARISON: NONE TECHNIQUE: PA and lateral views submitted. HISTORY: Pain FINDINGS: The lungs are clear and there is no pneumothorax, pleural effusion, or focal pneumonia. Heart size normal and no overt failure. Postsurgical changes left shoulder. Surgical clips in the gallbladder fo ssa. Hypertrophic and degenerative changes of the spine. Metallic density overlying the left chest on the lateral view and not well seen on the frontal view should be correlated. This is subcutaneous or superficial to the patient. The visualized portions of the rib cage appear intact by x-ray of the chest. Prominence of the right paratracheal line on the right. This could be related to slight patient rotation. IMPRESSION: 1. No acute process. Mild right paratracheal line fullness may be related to patient rotation. Short- term follow-up PA and lateral views of the chest could be obtained to reassess.
--- NOTE | 2023-01-07 14:23 | ED ---
General Adult HPI - General Chief complaint: Recheck/Abnormal Lab/Rx Stated complaint: rib injury Time Seen by Provider: 01/07/23 13:10 Source: patient Mode of arrival: ambulatory Limitations: no limitations - History of Present Illness Initial comments: 62-year-old female presenting to the ED with a chief complaint of rib pain. Patient states high wind last night caused her doorknob to swing back on her and hit her right chest. Now complains of rib pain worsening with deep breaths. Denies shortness of breath. No other complaints. - Related Data Home Medications Medication Instructions Recorded Confirmed Furosemide [Lasix] 80 mg PO QAM 06/26/14 09/27/22 lisinopriL [Prinivil] 20 mg PO HS 06/26/14 09/27/22 metFORMIN HCL [Glucophage] 1,000 mg PO BID 06/26/14 09/27/22 DULoxetine HCL [Cymbalta] 60 mg PO BID 12/31/16 09/27/22 Levothyroxine Sodium 88 mcg PO QAM 12/31/16 09/27/22 Pravastatin Sodium [Pravachol] 80 mg PO HS 12/31/16 09/27/22 Dulaglutide [Trulicity] 3 mg SQ MO 10/01/20 09/27/22 Azelastine HCl [Optivar 0.05% 1 drop BOTH EYES BID 04/22/21 09/27/22 Ophth Soln] Famotidine [Pepcid] 20 mg PO DAILY 04/22/21 09/27/22 Fenofibrate Nanocrystallized 145 mg PO HS 04/22/21 09/27/22 [Fenofibrate] Insulin Glargine,Hum.rec.anlog 10 unit SQ HS 04/23/21 09/27/22 [Lantus Solostar Pen] Canagliflozin [Invokana] 100 mg PO DAILY 09/27/22 09/27/22 Cetirizine HCl [Zyrtec] 10 mg PO DAILY 09/27/22 09/27/22 Finerenone [Kerendia] 10 mg PO DAILY 09/27/22 09/27/22 INSULIN LISPRO (For Pump) [humaLOG 0.01 units SQ-PUMP CONTINUOUS 09/27/22 09/27/22 (For Pump)] Risankizumab-Rzaa [Skyrizi] 0 mg SQ Q30D 09/27/22 10/05/22 Previous Rx's Medication Instructions Recorded Aspirin [Adult Low Dose Aspirin EC] 81 mg PO BID #30 tab 10/06/22 HYDROcodone/APAP 7.5-325MG [[place] 1 each PO Q6HR PRN #28 tab 10/06/22 7.5] Ibuprofen [Motrin] 600 mg PO Q8HR PRN #30 tab 01/07/23 Allergies Allergy/AdvReac Type Severity Reaction Status Date / Time adhesive Allergy Rash/Hives Verified 01/07/23 12:41 clarithromycin [From Biaxin] Allergy Rash/Hives Verified 01/07/23 12:41 Review of Systems ROS Statement: Those systems with pertinent positive or pertinent negative responses have been documented in the HPI. ROS Other: All systems not noted in ROS Statement are negative. Past Medical History Past Medical History: Diabetes Mellitus, GERD/Reflux, Hearing Disorder / Deafness, Hyperlipidemia, Hypertension, Osteoarthritis (OA), Skin Disorder, Thyroid Disorder, Vascular Disorder Additional Past Medical History / Comment(s): HAS INSULIN PUMP. Peripheral artery disease, varicose veins, hx stomach ulcer, Eczema, Psoriasis, Rosacea, hard of hearing, hx frequent ear infections. History of Any Multi-Drug Resistant Organisms: None Reported Past Surgical History: Adenoidectomy, Section, Cholecystectomy, Ear Surgery, Joint Replacement, Orthopedic Surgery, Tonsillectomy, Tubal Ligation Additional Past Surgical History / Comment(s): Right femur osteotomy, right knee arthroscopy, heel spurs-bilaterally, bilateral knee replacements, multiple myringotomy/tubes. Past Anesthesia/Blood Transfusion Reactions: Motion Sickness Additional Past Anesthesia/Blood Transfusion Reaction / Comment(s): Difficult IV starts. Past Psychological History: Depression Smoking Status: Former smoker Past Alcohol Use History: None Reported Past Drug Use History: None Reported - Past Family History Father Family Medical History: Cancer, Deep Vein Thrombosis (DVT) Additional Family Medical History / Comment(s): Lung cancer. General Exam Limitations: no limitations General appearance: alert, in no apparent distress Head exam: Present: atraumatic, normocephalic Neck exam: Present: normal inspection Respiratory exam: Present: normal lung sounds bilaterally, other (Right chest wall tenderness to palpation. No crepitus or step off) Cardiovascular Exam: Present: regular rate, normal rhythm GI/Abdominal exam: Present: soft Neurological exam: Present: alert, oriented X3 Skin exam: Present: warm, dry Course Vital Signs 01/07/23 01/07/23 12:39 14:34 Temperature 98.4 F 98.4 F Pulse Rate 80 87 Respiratory 20 18 Rate Blood Pressure 112/70 102/63 O2 Sat by Pulse 99 97 Oximetry Medical Decision Making - Medical Decision Making Was pt. sent in by a medical professional or institution (MARINA Olson, SENIOR MECHANICAL ENGINEER, urgent care, hospital, or intermediate...) When possible be specific @ -No Did you speak to anyone other than the patient for history (EMS, parent, family, police, friend...)? What history was obtained from this source @ -No Did you review nursing and triage notes (agree or disagree)? Why? @ -I reviewed and agree with nursing and triage notes Were old charts reviewed (outside hosp., previous admission, EMS record, old EKG, old radiological studies, urgent care reports/EKG's, intermediate records)? Report findings @ -No old charts were reviewed Differential Diagnosis (chest pain, altered mental status, abdominal pain women, abdominal pain men, vaginal bleeding, weakness, fever, dyspnea, syncope, headache, dizziness, GI bleed, back pain, seizure, CVA, palpatations, mental health, musculoskeletal)? @ -Pneumothorax, acute fracture. This is not meant to be an all-inclusive list. EKG interpreted by me (3pts min.). @ -None X-rays interpreted by me (1pt min.). @ -X-ray shows no acute process. CT interpreted by me (1pt min.). @ -None done U/S interpreted by me (1pt. min.). @ -None done What testing was considered but not performed or refused? (CT, X-rays, U/S, labs)? Why? @ -None What meds were considered but not given or refused? Why? @ -None Did you discuss the management of the patient with other professionals (professionals i.e. MARINA Olson, SENIOR MECHANICAL ENGINEER, lab, RT, psych nurse, social insurance specialist, church business administrator, teacher, surface to air weapons officer, nurse outreach case manager)? Give summary @ -No Was smoking cessation discussed for >3mins.? @ -No Was critical care preformed (if so, how long)? @ -No Were there social determinants of health that impacted care today? How? (Homelessness, low income, unemployed, alcoholism, drug addiction, transportation, low edu. Level, literacy, decrease access to med. care, senior living, rehab)? @ -No Was there de-escalation of care discussed even if they declined (Discuss DNR or withdrawal of care, Hospice)? DNR status @ -No What co-morbidities impacted this encounter? (DM, HTN, Smoking, COPD, CAD, Cancer, CVA, ARF, Chemo, Hep., AIDS, mental health diagnosis, sleep apnea, morbid obesity)? @ -None Was patient admitted / discharged? Hospital course, mention meds given and route, prescriptions, significant lab abnormalities, going to OR and other pertinent info. @ -Discharged. Chest x-ray showed no acute process. Urine negative. Patient will be discharged home with prescription for ibuprofen. Discussed return precautions with patient who verbalizes agreement. Undiagnosed new problem with uncertain prognosis? @ -No Drug Therapy requiring intensive monitoring for toxicity (Heparin, Nitro, Insulin, Cardizem)? @ -No Were any procedures done? @ -No Diagnosis/symptom? @ -Rib contusion Acute, or Chronic, or Acute on Chronic? @ -Acute Uncomplicated (without systemic symptoms) or Complicated (systemic symptoms)? @ -Uncomplicated Side effects of treatment? @ -No Exacerbation, Progression, or Severe Exacerbation? @ -No Poses a threat to life or bodily function? How? (Chest pain, USA, MD, pneumonia, PE, COPD, DKA, ARF, appy, cholecystitis, CVA, Diverticulitis, Homicidal, Suicidal, threat to staff... and all critical care pts) @ -No - Lab Data Lab Results 01/07/23 Range/Units 13:45 Urine Color Colorless Urine Appearance Clear (Clear) Urine pH 5.0 (5.0-8.0) Ur Specific [place] 1.005 (1.001-1.035) Urine Protein Negative (Negative) Urine Glucose (UA) 2+ H (Negative) Urine Ketones Negative (Negative) Urine Blood Negative (Negative) Urine Nitrite Negative (Negative) Urine Bilirubin Negative (Negative) Urine Urobilinogen <2.0 (<2.0) mg/dL Ur Leukocyte Esterase Negative (Negative) Disposition Clinical Impression: Rib contusion Disposition: HOME SELF-CARE Condition: Good Instructions (If sedation given, give patient instructions): Rib Contusion (ED) Additional Instructions: Please return to the Emergency Department if symptoms worsen or any other concerns. Prescriptions: Ibuprofen [Motrin] 600 mg PO Q8HR PRN #30 tab PRN Reason: Pain Is patient prescribed a controlled substance at d/c from ED?: No Referrals: Nonstaff,Physician [REFERRING] - 1-2 days Time of Disposition: 14:26
[2023-01-07] MEDS ORDERED: IBUPROFEN 600 MG STARTER PACK 4 TAB BTL PO STA (14:26)
[2023-01-07 14:37] VITALS: BP 102/63; PULSE 87; RESP 18
== END 2023-01-07 14:37 | disposition home or self-care (01) ==
LOC: EC 12:27
DX: S20.219A Contusion of unspecified front wall of thorax, initial encounter (principal); E11.9 Type 2 diabetes mellitus without complications; E78.5 Hyperlipidemia, unspecified; I10 Essential (primary) hypertension; E07.9 Disorder of thyroid, unspecified; Z86.59 Personal history of other mental and behavioral disorders; Z87.891 Personal history of nicotine dependence; Z79.4 Long term (current) use of insulin; Z79.84 Long term (current) use of oral hypoglycemic drugs; Z79.890 Hormone replacement therapy; Z79.899 Other long term (current) drug therapy; Z91.09 Other allergy status, other than to drugs and biological substances; Z88.6 Allergy status to analgesic agent; W22.8XXA Striking against or struck by other objects, initial encounter
CPT/HCPCS: 71046; 81003; 99284

== ENCOUNTER → 2023-10-18 | Outpatient (CLI) | payer MEDICARE, OTHER ==
--- NOTE | 2023-10-20 09:41 | MR ---
EXAMINATION TYPE: MR shoulder RT wo con DATE OF EXAM: 10/18/2023 COMPARISON: Outside right shoulder x-ray September 15, 2023 HISTORY: Right shoulder pain with difficulty raising arm overhead for 2+ months, no known injury TECHNIQUE: Multiplanar, multisequence imaging of the right shoulder is performed without contrast. FINDINGS: Rotator Cuff: Areas of increased signal with surrounding fluid through the infraspinatus tendon. Supr aspinatus tendon is predominantly intact with only some focal increased signal near the humeral head articulation. Subscapularis tendon thought intact with some increased signal distally. Rotator cuff m uscle bulk is preserved. Acromioclavicular Joint: Moderate narrowing with mild spurring and capsular hypertrophy Glenohumeral Joint: Small to moderate size joint effusion. No significant spurring.. Labrum: Blunting and increased signal superior labrum suggesting degenerative tearing.. Biceps Tendon: The long head of biceps is not well identified in normal location within bicipital lisa ove. It is suspected atrophic and/or chronically torn. Labral anchor not well seen. Bone marrow signal: Heterogeneity suggesting red marrow reconversion is seen. Tiny subchondral cysts in the humeral head are present. Other: No additional significant abnormality is appreciated. IMPRESSION: 1. Tendinosis/partial tearing of the rotator cuff tendons. 2. Likely chronic tearing of the long head of biceps tendon and degenerative superior labral tear. 3. Fairly moderate degenerative changes are present as detailed above.
== END | disposition home or self-care (01) ==
LOC: RADMRIMAIN 18:49
PROVIDERS: ATTEND Orthopaedic Surgery
DX: M75.111 Incomplete rotator cuff tear or rupture of right shoulder, not specified as traumatic (principal); M67.813 Other specified disorders of tendon, right shoulder

== ENCOUNTER 2023-11-16 10:53 | Day surgery (SDC) | payer MEDICARE, OTHER ==
--- NOTE | 2023-11-14 10:31 | P.HPOR ---
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 She's having pain with overhead use and at night. She's tried medications along with injections and home exercises without significant relief. She notes daily pain that limits her. Review of Systems As per HPI Past Medical History Past Medical History: Diabetes Mellitus, GERD/Reflux, Hearing Disorder / Deafness, Hyperlipidemia, Hypertension, Osteoarthritis (OA), Skin Disorder, Thyroid Disorder, Vascular Disorder Additional Past Medical History / Comment(s): HAS INSULIN PUMP. Peripheral artery disease, varicose veins, hx stomach ulcer, Eczema, Psoriasis, Rosacea, hard of hearing, hx frequent ear infections. History of Any Multi-Drug Resistant Organisms: None Reported Past Surgical History: Adenoidectomy, Section, Cholecystectomy, Ear Lorna reynaldo, Joint Replacement, Orthopedic Surgery, Tonsillectomy, Tubal Ligation Additional Past Surgical History / Comment(s): Right femur osteotomy, right knee arthroscopy, heel spurs-bilaterally, bilateral knee replacements, multiple myringotomy/tubes. Past Anesthesia/Blood Transfusion Reactions: Motion Sickness Additional Past Anesthesia/Blood Transfusion Reaction / Comment(s): Difficult IV starts. Past Psychological History: Depression Smoking Status: Former smoker Past Alcohol Use History: None Reported Past Drug Use History: None Reported - Past Family History Father Family Medical History: Cancer, Deep Vein Thrombosis (DVT) Additional Family Medical History / Comment(s): Lung cancer. Medications and Allergies Home Medications Medication Instructions Recorded Confirmed Type Furosemide [Lasix] 80 mg PO QAM 06/26/14 09/27/22 History lisinopriL [Prinivil] 20 mg PO HS 06/26/14 09/27/22 History metFORMIN HCL [Glucophage] 1,000 mg PO BID 06/26/14 09/27/22 History DULoxetine HCL [Cymbalta] 60 mg PO BID 12/31/16 09/27/22 History Levothyroxine Sodium 88 mcg PO QAM 12/31/16 09/27/22 History Pravastatin Sodium [Pravachol] 80 mg PO HS 12/31/16 09/27/22 History Dulaglutide [Trulicity] 3 mg SQ MO 10/01/20 09/27/22 History Azelastine HCl [Optivar 0.05% 1 drop BOTH EYES BID 04/22/21 09/27/22 History Ophth Soln] Famotidine [Pepcid] 20 mg PO DAILY 04/22/21 09/27/22 History Fenofibrate Nanocrystallized 145 mg PO HS 04/22/21 09/27/22 History [Fenofibrate] Insulin Glargine,Hum.rec.anlog 10 unit SQ HS 04/23/21 09/27/22 History [Lantus Solostar Pen] Canagliflozin [Invokana] 100 mg PO DAILY 09/27/22 09/27/22 History Cetirizine HCl [Zyrtec] 10 mg PO DAILY 09/27/22 09/27/22 History Finerenone [Kerendia] 10 mg PO DAILY 09/27/22 09/27/22 History INSULIN LISPRO (For Pump) [humaLOG 0.01 units SQ-PUMP CONTINUOUS 09/27/22 09/27/22 History (For Pump)] Risankizumab-Rzaa [Skyrizi] 0 mg SQ Q30D 09/27/22 10/05/22 History Aspirin [Adult Low Dose Aspirin EC] 81 mg PO BID #30 tab 10/06/22 Rx HYDROcodone/APAP 7.5-325MG [[place] 1 each PO Q6HR PRN #28 tab 10/06/22 Rx 7.5] Ibuprofen [Motrin] 600 mg PO Q8HR PRN #30 tab 01/07/23 Rx Allergies Allergy/AdvReac Type Severity Reaction Status Date / Time adhesive Allergy Rash/Hives Verified 01/07/23 12:41 clarithromycin [From Biaxin] Allergy Rash/Hives Verified 01/07/23 12:41 Physical Examination - Shoulder right Tenderness with palpation: anterior, bicipital groove Pain: with abduction, with forward flexion ROM: forward flexion: 120 degrees ROM: internal rotation: lower lumbar ROM: external rotation: 50 degrees Crepitus with motion: Yes Strength: abduction: 5/5 Strength: external rotation: 4/5 Tests: internal impingement tests: positive, external impingment tests: positive Results The patient is a well-developed well-nourished female approximately 5 foot 3, 158 pounds of endomorphic habitus. HEENT exam is nonfocal, neck is supple. She's tender about the right shoulder anterior subacromial space and bicipital groove. Moderate subacromial crepitus is noted. Martin, Neer sign, and speed tests are positive. Her distal neurovascular exam appears intact in the right upper extremity. - Diagnostic results Shoulder MRI: image reviewed (MRI of the right shoulder shows evidence of part ial thickness tearing the supraspinatus and infraspinatus. A SLAP lesion and possible proximal biceps rupture is noted.) Assessment and Plan Assessment: Right shoulder impingement/rotator cuff tear Right proximal biceps tear/SLAP lesion Insulin-dependent diabetes Renal disease Plan: I talked to the patient at length regarding her condition along with treatment options. At this point she is quite symptomatic having pain and weakness despite conservative measures. After a thorough discussion she opts to proceed with surgery. We will plan to proceed with arthroscopy right shoulder with probable subacromial decompression, rotator cuff debridement versus repair, biceps tenotomy versus debridement.
[2023-11-15 09:47] VITALS: BMI 26.9
[~2023-11-16 10:53] MED LIST changes: -ACETAMINOPHEN TAB 500 MG TAB PO PRN; +LIDOCAINE 1% (10MG/ML) FOR IV START INTRADERMA PRN; -MELOXICAM 7.5 MG TAB PO PRN; +MIDAZOLAM 2 MG/2 ML VIAL IV PRN; -TRANEXAMIC ACID IN NACL,ISO-OS 1,000 MG in SALINE 1 100ML.BAG IVPB PRN; +fentaNYL (PF) 50 MCG/ML 2 ML AMP IV PRN
[2023-11-16] MEDS: LACTATED RINGERS 1,000 ML IV SCH (11:23)
[2023-11-16 11:43] LABS: Glucose,Whole Blood 103 mg/dL (70-110)
[2023-11-16 11:52] LABS: Basophils # (A) 0.1 k/uL (0-0.2); Basophils % (A) 1 %; Eosinophils # (A) 0.4 k/uL (0-0.7); Eosinophils % (A) 7 %; HCT 36.5 % (34.0-46.0); HGB 11.8 gm/dL (11.4-16.0); Lymphocytes # (A) 1.8 k/uL (1.0-4.8); Lymphocytes % (A) 36 %; MCH 30.3 pg (25.0-35.0); MCHC 32.4 g/dL (31.0-37.0); MCV 93.5 fL (80.0-100.0); Mean Platelet Volume 7.8; Monocytes # (A) 0.3 k/uL (0-1.0); Monocytes % (A) 7 %; Neutrophils # (A) 2.3 k/uL (1.3-7.7); Neutrophils % (A) 46 %; Platelet Count 403 k/uL (150-450); RDW 14.5 % (11.5-15.5); WBC 4.9 k/uL (3.8-10.6)
[2023-11-16] MEDS: DEXAMETHASONE SOD PHOSPHATE 4 MG/ML 1 ML VIAL IV ONE (12:05)
[2023-11-16] MEDS: ONDANSETRON 4 MG/2 ML VIAL IVP ONE (12:05)
[2023-11-16 12:10] LABS: ALT 20 U/L (4-34); AST 23 U/L (14-36); African American GFR (CKD) 43 (>60 ml/min/1.73 sqM); Albumin 4.5 g/dL (3.5-5.0); Alkaline Phosphatase 50 U/L (38-126); Anion Gap 7 mmol/L; Blood Urea Nitrogen 43 mg/dL (7-17); Calcium 9.3 mg/dL (8.4-10.2); Carbon Dioxide 25 mmol/L (22-30); Chloride 105 mmol/L (98-107); Glucose 92 mg/dL (74-99); Non-African American GFR(CKD) 37 (>60 ml/min/1.73 sqM); Potassium 4.8 mmol/L (3.5-5.1); Sodium 137 mmol/L (137-145); Total Bilirubin 0.4 mg/dL (0.2-1.3); Total Protein 6.8 g/dL (6.3-8.2)
[2023-11-16] MEDS: MIDAZOLAM 2 MG/2 ML VIAL IVP ONE (12:15)
[2023-11-16] MEDS ORDERED: GLYCOPYRROLATE 0.2 MG/ML 2 ML VIAL ONE (12:31)
[2023-11-16] MEDS ORDERED: PROPOFOL 10 MG/ML 20 ML VIAL IV ONE (12:31)
[2023-11-16] MEDS ORDERED: fentaNYL (PF) 50 MCG/ML 2 ML AMP ONE (12:31)
[2023-11-16] MEDS ORDERED: NEOSTIGMINE 1 MG/ML 10 ML VIAL ONE (12:31)
[2023-11-16] MEDS ORDERED: ROPIVACAINE 5 MG/ML 30 ML VIAL ONE (12:31)
[2023-11-16] MEDS ORDERED: ROCURONIUM 10 MG/ML (5 ML VIAL) IV ONE (12:31)
[2023-11-16] MEDS ORDERED: PHENYLEPHRINE-0.9% NACL SYG 1,000 MCG/10 ML SYRINGE ONE (12:31)
[2023-11-16] MEDS ORDERED: EPINEPHrine 10 ML SYRINGE (0.1 MG/ML) ONE (12:31)
[2023-11-16] MEDS ORDERED: LIDOCAINE 1% INJ 10MG/ML (20 ML MDV) ONE (12:31)
[2023-11-16] MEDS ORDERED: SUCCINYLCHOLINE CHLORIDE 200 MG/10 ML VIAL IV ONE (12:31)
--- NOTE | 2023-11-16 12:31 | P.ANPRN ---
Procedure Note - Anesthesia - Nerve Block Performed Right Interscalene Single Date of Procedure: 11/16/23 Procedure Start Time: 12:15 Procedure Stop Time: 12:20 Location of Patient: PreOp Indication: Acute Post-Operative Pain, Analgesia, Requested by Surgeon Sedation Type: Sedate with meaningful contact maintained Preparation: Sterile Prep Position: Sitting Catheter: None Needle Types: Pajunk Needle Gauge: 21 Ultrasound used to visualize needle placement: Yes Ultrasound used to observe medication spread: Yes Injectate: 0.5% Ropivacaine (see comment for volume) (Ropiv 20 ml . Negative nerve stimulation @0.5 MA. AttemptX1.) Blood Aspirated: No Pain Paresthesia on Injection Noted: No Resistance on Injection: Normal Image Stored and Saved: Yes Events: Uneventful and Well Tolerated ()
[2023-11-16] MEDS: EPINEPHrine (PF) 1 ML in SODIUM CHLORIDE 0.9% IRRIGATIO 3,000 ML IRRIGATION ONE (12:59)
--- NOTE | 2023-11-16 13:51 | P.OP ---
Date of Procedure: 11/16/23 Preoperative Diagnosis: Right rotator cuff tear Postoperative Diagnosis: 3 cm high-grade partial-thickness right rotator cuff tear/proximal biceps rupture Procedure(s) Performed: Right shoulder arthroscopic subacromial decompression/rotator cuff repair Implants: Arthrex 4.75 mm swivel lock anchor x 2, 5.5 mm swivel lock anchor x 2 Anesthesia: ezequiel IRIZARRY Surgeon: González Baltazar Checker And Packer #1: Aashish Locke Estimated Blood Loss (ml): 10 Pathology: none sent Condition: stable Disposition: PACU Indications for Procedure: The patient is a 63-year-old female who presents with progressive right shoulder pain and weakness despite conservative measures. A discussion of the risks and benefits of operative intervention versus continued conservative measures was made with the patient. She opted to proceed with surgery. Operative risks include infection, neurovascular injury, develop blood clots, possible tendon rerupture, possible postoperative stiffness, and possible need for subsequent procedures was discussed. Informed consent was obtained. Operative Findings: As below Description of Procedure: The patient was brought to the operating room, and after induction of general anesthesia was placed in a beachchair position. A preoperative interscalene block was placed for postoperative analgesia. I examined the right shoulder. There was no gross block to passive motion or gross glenohumeral instability. The right upper extremity was prepped and draped in normal fashion. The bony outlines the acromion, distal clavicle, and coracoid process were outlined with a skin marker. The glenohumeral joint was inflated with 50 mL of saline utilizing a spinal needle from posterior approach. A posterior portal was made through a 5 mm skin incision 1 cm medial and inferior to the posterior lateral border time. A blunt trocar was used to easily into the joint. Diagnostic arthroscopy was performed. An anterior portal was made just lateral to the coracoid process entering the joint above the subscapularis tendon. The subscapularis tendon appeared to be intact. Anterior labrum was intact. The inferior recess was inspected. The posterior labrum was intact. The proximal biceps appeared to be previously ruptured off the superior labrum. On inspection the rotator cuff a partial-thickness tear involving the anterior supraspinatus was noted. The arthroscope was placed into the subacromial space. A lateral portal was made 2 centimeters inferior to the anterior lateral border of the acromion. The rotator cuff was inspected. A high-grade partial-thi ckness tear involving the supraspinatus and infraspinatus was noted measuring approximate 3 cm. This involved approximately 90% of the tendon thickness. It was elected to take the remaining portion down with a shaver. The rotator cuff was then easily mobilized back to the greater tuberosity. The soft tissue on the undersurface of the acromion was debrided with a motorized shaver and electrocautery clearly defining the anterior medial and lateral borders as well as the distal clavicle. An anterior inferior acromioplasty was performed with a motorized julia starting anterolateral, then extending this posteriorly, then extending this medially. I converted to a flat acromion and this was verified in the posterior and lateral viewing portals. The greater tuberosity was lightly decorticating with a shaver down to a bleeding bony surface. An accessory superior lateral portal was made just off the lateral edge of the acromion for anchor placement. 2 anchors were then placed just off the articular surface with the appropriate starting awl. 4.75 mm anchors preloaded with #2 fiber tape were placed. Good purchase was obtained. These fiber tapes were then passed the rotator cuff with a scorpion suture passer. A lateral row was created crisscrossing these tapes. 5.5 mm swivel lock anchors x 2 were placed laterally. Good purchase was obtained. Final arthroscopic view showed adequate compression at the footprint. The arthroscope was then removed. The portals were closed with simple 3-0 nylon sutures. A sterile dressing was applied in addition to an abductor brace. The patient was then awoken from general anesthesia and transferred to recovery room in good condition. Blood loss was estimated at 10 mL. No complications were incurred. Sponge and needle counts were correct in the case. Aashish GRAY assisted and the major components of the case to include arm positioning, anchor placement, and rotator cuff repair.
[2023-11-16] MEDS: HYDROmorphone 0.5 MG/0.5 ML SYRINGE IVP PRN (14:27)
[2023-11-16 14:28] VITALS: TEMP 97
[2023-11-16] MEDS: IV FLUID CONTINUATION 1,000 ML IV ONE (15:01)
[2023-11-16 15:10] LABS: Glucose,Whole Blood 73 mg/dL (70-110)
[2023-11-16 16:13] VITALS: BP 102/64; PULSE 81
[2023-11-16 16:14] VITALS: RESP 18
== END 2023-11-16 16:21 | disposition home or self-care (01) ==
LOC: OR 10:53
PROVIDERS: ATTEND Orthopaedic Surgery
DX: S46.211A Strain of muscle, fascia and tendon of other parts of biceps, right arm, initial encounter (principal); M75.111 Incomplete rotator cuff tear or rupture of right shoulder, not specified as traumatic; M75.41 Impingement syndrome of right shoulder; E11.51 Type 2 diabetes mellitus with diabetic peripheral angiopathy without gangrene; E78.5 Hyperlipidemia, unspecified; F32.A Depression, unspecified; G89.18 Other acute postprocedural pain; I10 Essential (primary) hypertension; K21.9 Gastro-esophageal reflux disease without esophagitis; M19.90 Unspecified osteoarthritis, unspecified site; Z79.4 Long term (current) use of insulin; Z79.84 Long term (current) use of oral hypoglycemic drugs; Z79.890 Hormone replacement therapy; Z87.891 Personal history of nicotine dependence; Z79.899 Other long term (current) drug therapy; Z98.51 Tubal ligation status; X58.XXXA Exposure to other specified factors, initial encounter
CPT/HCPCS: 64415; 80053; 85025; 29826; 29827; C1713 ×2; C1894; J2250; J0330; J1100; J2710; J0690; J2405; J0171 ×2; J2001; J3010; J2795; J2704; J1170; J2371

== ENCOUNTER 2024-05-07 09:21 | Emergency (ER) | payer MEDICARE ==
[2024-05-07] MEDS: IBUPROFEN 800 MG TAB PO STA (09:51)
[2024-05-07] MEDS: HYDROcodone/APAP 5-325MG 1 EACH TAB PO STA (09:52)
[2024-05-07] MEDS: LIDOCAINE 4% PATCH TOPICAL STA (09:53)
--- NOTE | 2024-05-07 10:37 | XR ---
EXAMINATION TYPE: XR ribs LT w pa chest xray DATE OF EXAM: 05/07/2024 10:15 AM COMPARISON: 01/07/2023 CLINICAL INDICATION: Female, 63 years old with history of left lateral chest wall/rib pain for weeks; TECHNIQUE: XR ribs LT w pa chest xray; Frontal and oblique views of the ribs with frontal chest radio graph. FINDINGS: The ribs have a normal appearance. No evidence of fracture. Overall, the lungs are clear. The cardiac silhouette is normal in size. The remaining osseous structures are intact. Left shoulder arthroplasty appears intact. Right upper quadrant cholecystectomy clips. IMPRESSION: No acute osseous pathology. [facility], , 05/07/2024 10:35 AM
--- NOTE | 2024-05-07 10:55 | ED ---
General Adult HPI - General Chief complaint: Recheck/Abnormal Lab/Rx Stated complaint: L rib pain Time Seen by Provider: 05/07/24 09:35 Source: patient, RN notes reviewed, old records reviewed Mode of arrival: ambulatory Limitations: no limitations - History of Present Illness Initial comments: Patient is a 63-year-old female presents emergency department complaint of left rib pain. States pain started 2 weeks ago when she was reaching and felt something pop in her left rib cage. Has been having point pain since then. Worse with movements as well as lifting of her left arm. Denies shortness of breath. States pain is worse with deep inspiration from that injury. Denies any nausea, vomiting, other chest pain. Has no other acute complaints at this time. Presents over concern for possible rib injury or fracture. Denies fevers, chills, cough. - Related Data Home Medications Medication Instructions Recorded Confirmed Furosemide [Lasix] 80 mg PO QAM 06/26/14 11/16/23 lisinopriL [Prinivil] 20 mg PO HS 06/26/14 11/16/23 metFORMIN HCL [Glucophage] 1,000 mg PO BID 06/26/14 11/16/23 DULoxetine HCL [Cymbalta] 60 mg PO BID 12/31/16 11/16/23 Levothyroxine Sodium 88 mcg PO QAM 12/31/16 11/16/23 Pravastatin Sodium [Pravachol] 80 mg PO HS 12/31/16 11/16/23 Azelastine HCl [Optivar 0.05% 1 drop BOTH EYES BID 04/22/21 11/16/23 Ophth Soln] Famotidine [Pepcid] 20 mg PO DAILY 04/22/21 11/16/23 Fenofibrate Nanocrystallized 145 mg PO HS 04/22/21 11/16/23 [Fenofibrate] Insulin Glargine,Hum.rec.anlog 10 unit SQ HS 04/23/21 11/16/23 [Lantus Solostar Pen] Canagliflozin [Invokana] 100 mg PO DAILY 09/27/22 11/16/23 Cetirizine HCl [Zyrtec] 10 mg PO DAILY 09/27/22 11/16/23 Finerenone [Kerendia] 10 mg PO DAILY 09/27/22 11/16/23 INSULIN LISPRO (For Pump) [humaLOG 0.01 units SQ-PUMP CONTINUOUS 09/27/22 11/16/23 (For Pump)] Dulaglutide [Trulicity] 4.5 mg SQ MO 11/15/23 11/16/23 Previous Rx's Medication Instructions Recorded Aspirin [Adult Low Dose Aspirin EC] 81 mg PO BID #30 tab 10/06/22 HYDROcodone/APAP 7.5-325MG [[place] 1 each PO Q6HR PRN #28 tab 10/06/22 7.5] HYDROcodone/APAP 7.5-325MG [[place] 1 tab PO Q6HR PRN #28 tab 11/16/23 7.5-325] Lidocaine 5% Patch [Lidoderm 5% 1 patch TOPICAL DAILY PRN 14 Days 05/07/24 Patch] #14 patch Allergies Allergy/AdvReac Type Severity Reaction Status Date / Time adhesive Allergy Rash/Hives Verified 05/07/24 09:24 clarithromycin [From Biaxin] Allergy Rash/Hives Verified 05/07/24 09:24 Review of Systems ROS Statement: Those systems with pertinent positive or pertinent negative responses have been documented in the HPI. Review of Systems: CONST: Denies fever EYES: Denies blurry vision ENT: Denies nasal congestion C/V: Denies Chest pain RESP: Denies shortness of breath GI: Denies abdominal pain : Denies dysuria SKIN: Denies rash. MSK: Endorses left rib pain NEURO: Denies headache ROS Other: All systems not noted in ROS Statement are negative. Past Medical History Past Medical History: Diabetes Mellitus, GERD/Reflux, Hearing Disorder / Deafness, Hyperlipidemia, Hypertension, Osteoarthritis (OA), Skin Disorder, Thyroid Disorder, Vascular Disorder Additional Past Medical History / Comment(s): HAS INSULIN PUMP. Peripheral artery disease, varicose veins, hx stomach ulcer, Eczema, Psoriasis, Rosacea, hard of hearing, hx frequent ear infections. History of Any Multi-Drug Resistant Organisms: None Reported Past Surgical History: Adenoidectomy, Section, Cholecystectomy, Ear Surgery, Joint Replacement, Orthopedic Surgery, Tonsillectomy, Tubal Ligation Additional Past Surgical History / Comment(s): Right femur osteotomy, right knee arthroscopy, heel spurs-bilaterally, bilateral knee replacements, multiple myringotomy/tubes. COLONOSCOPY Past Anesthesia/Blood Transfusion Reactions: Motion Sickness Additional Past Anesthesia/Blood Transfusion Reaction / Comment(s): Difficult IV starts. Past Psychological History: Depression Smoking Status: Former smoker Past Alcohol Use History: None Reported Past Drug Use History: None Reported - Past Family History Father Family Medical History: Cancer, Deep Vein Thrombosis (DVT) Additional Family Medical History / Comment(s): Lung cancer. General Exam - General Exam Comments Initial Comments: General: Appears in no acute distress. HEAD: Normal with no signs of head trauma. EYES: EOMI. ENT: Hearing grossly intact. RESPIRATORY: No respiratory distress. Breath sounds bilaterally. C/V: Regular rate and rhythm. ABD: Abdomen is nondistended. EXT: Tenderness to palpation over the left mid ribs in the mid axillary line. No obvious step-offs or deformities appreciated. No bruising. No evidence of flail chest. SKIN: No rashes or lesions observed on exposed skin. NEURO: Alert and oriented. Limitations: no limitations Course Vital Signs 05/07/24 05/07/24 09:22 10:55 Temperature 97.7 F 98.1 F Pulse Rate 75 72 Respiratory 20 18 Rate Blood Pressure 117/80 103/68 O2 Sat by Pulse 99 100 Oximetry Medical Decision Making - Medical Decision Making Was pt. sent in by a medical professional or institution (, PA, THERMOFORMING MACHINE OPERATOR, urgent care, hospital, or fdc...) When possible be specific @ -No Did you speak to anyone other than the patient for history (EMS, parent, family, police, friend...)? What history was obtained from this source @ -No Did you review nursing and triage notes (agree or disagree)? Why? @ -I reviewed and agree with nursing and triage notes Were old charts reviewed (outside hosp., previous admission, EMS record, old EKG, old radiological studies, urgent care reports/EKG's, fdc records)? Report findings @ -No old charts were reviewed Differential Diagnosis (chest pain, altered mental status, abdominal pain women, abdominal pain men, vaginal bleeding, weakness, fever, dyspnea, syncope, headache, dizziness, GI bleed, back pain, seizure, CVA, palpatations, mental health, musculoskeletal)? @ -Rib contusion, rib fracture. This list is not all inclusive. EKG interpreted by me (3pts min.). @ -None done X-rays interpreted by me (1pt min.). @ -Chest x-ray reveals no evidence of rib injury and no obvious acute cardiopulmonary process. No evidence of pneumonia. CT interpreted by me (1pt min.). @ -None done U/S interpreted by me (1pt. min.). @ -None done What testing was considered but not performed or refused? (CT, X-rays, U/S, labs)? Why? @ -None What meds were considered but not given or refused? Why? @ -None Did you discuss the management of the patient with other professionals (pr ofessionals i.e. , PA, THERMOFORMING MACHINE OPERATOR, lab, RT, psych nurse, social media editor, pharmacy sales assistant, teacher, sales promotion officer, case management coordinator)? Give summary @ -No Was smoking cessation discussed for >3mins.? @ -No Was critical care preformed (if so, how long)? @ -No Were there social determinants of health that impacted care today? How? (Homelessness, low income, unemployed, alcoholism, drug addiction, transportation, low edu. Level, literacy, decrease access to med. care, intermediate, rehab)? @ -No Was there de-escalation of care discussed even if they declined (Discuss DNR or withdrawal of care, Hospice)? DNR status @ -No What co-morbidities impacted this encounter? (DM, HTN, Smoking, COPD, CAD, Cancer, CVA, ARF, Chemo, Hep., AIDS, mental health diagnosis, sleep apnea, morbid obesity)? @ -None Was patient admitted / discharged? Hospital course, mention meds given and route, prescriptions, significant lab abnormalities, going to OR and other pertinent info. @ -Presents with left rib pain after an injury 2 weeks ago. Concern for possible rib fracture or contusion. We will obtain chest x-ray and rib x-ray on the left as well as symptomatically treat the patient with Motrin, [place], lidocaine patch. Patient was in agreement this plan. Vitals are within acceptable limits. No concern for pneumonia at this time. Chest x-ray shows no obvious acute process. On reevaluation, patient is feeling slightly improved. Discussed results with the patient. She be discharged home at this time. She is given incentive spirometer as well as a starter pack Tylenol 3. Recommended pain control and return if any evidence of worsening symptoms or upper respiratory infection. Patient was in agreement this plan. I will provide the patient with a prescription for lidocaine patch. I instructed the patient to follow up with their PCP in the next 1-3 days.. I explained that the patient should return to the emergency department if they experience any worsening symptoms. Strict return precautions were discussed with the patient. The patient expressed understanding of these instructions. I answered all questions that the patient had. The patient was discharged home in good condition with their prescriptions and follow up information. Undiagnosed new problem with uncertain prognosis? @ -No Drug Therapy requiring intensive monitoring for toxicity (Heparin, Nitro, Insulin, Cardizem)? @ -No Were any procedures done? @ -No Diagnosis/symptom? @ -Rib contusion Acute, or Chronic, or Acute on Chronic? @ -Acute Uncomplicated (without systemic symptoms) or Complicated (systemic symptoms)? @ -Uncomplicated Side effects of treatment? @ -No Exacerbation, Progression, or Severe Exacerbation? @ -No Poses a threat to life or bodily function? How? (Chest pain, [place], [place], pneumonia, PE, COPD, DKA, ARF, appy, cholecystitis, CVA, Diverticulitis, Homicidal, Suicidal, threat to staff... and all critical care pts) @ -Unlikely Disposition Clinical Impression: Contusion of rib Disposition: HOME SELF-CARE Condition: Good Instructions (If sedation given, give patient instructions): How to Use an Incentive Spirometer (ED), Rib Contusion (ED) Additional Instructions: You likely have a rib contusion/chest wall sprain. No obvious evidence of rib fracture on x-ray. Treat pain with [id number] analgesia medications, lidocaine patch. Return to the emergency department for any concerns. He was in sinus primary monitor for signs or symptoms of upper respiratory infection. Please follow-up with your PCP in the next 1 to 3 days. Prescriptions: Lidocaine 5% Patch [Lidoderm 5% Patch] 1 patch TOPICAL DAILY PRN 14 Days #14 patch PRN Reason: Pain Is patient prescribed a controlled substance at d/c from ED?: No Referrals: Po Hennessy MD [Primary Care Provider] - 1-2 days Time of Disposition: 10:54
[2024-05-07 10:56] VITALS: BP 103/68; PULSE 72; RESP 18; TEMP 98.1
[2024-05-07] MEDS: ACET/COD 300 MG/30 MG STARTER PACK 6 TAB BTL PO STA (10:59)
== END 2024-05-07 11:01 | disposition home or self-care (01) ==
LOC: EC 09:21
DX: S20.212A Contusion of left front wall of thorax, initial encounter (principal); Z88.1 Allergy status to other antibiotic agents; Z87.891 Personal history of nicotine dependence; X58.XXXA Exposure to other specified factors, initial encounter
CPT/HCPCS: 99283

== ENCOUNTER 2024-05-25 09:18 | Day surgery (SDC) | payer MEDICARE ==
--- NOTE | 2024-05-24 19:46 | HP ---
HISTORY AND PHYSICAL CHIEF COMPLAINT: Chronic bilateral serous otitis media. HISTORY OF PRESENT ILLNESS: The patient is a 63-year-old female, who is well known to my office. This patient recently presented to my office complaining of having pain mainly in the left ear and a plugged sensation in the right ear. She had T tubes inserted in 2021. It was known that the left tube had extruded and I suspect that the right tube was also extruded. At the time that she was seen in my office, clinical examination of the ears revealed evidence of chronic bilateral serous otitis media, so-called glue ear. It was recommended that she undergo re-insertion of the T tubes under IV sedation with MAC. PAST MEDICAL HISTORY: Reveals she has allergies to Biaxin and Celexa. CURRENT MEDICATIONS: Include, 1. Metformin. 2. Pravastatin. 3. Lasix. 4. Invokana. 5. Trulicity. 6. Synthroid. 7. Lisinopril. 8. NovoLog insulin. REVIEW OF SYSTEMS: CARDIOVASCULAR SYSTEM: Positive for hypertension and ASHD. METABOLIC ENDOCRINE SYSTEM: Positive for type 1 diabetes mellitus, hypercholesterolemia, and hypothyroidism. MUSCULOSKELETAL: Positive for osteoarthritis. Remainder of review of systems is unremarkable. PHYSICAL EXAMINATION: GENERAL: This patient is a 63-year-old female, who was alert and cooperative. HEENT: The patient is normocephalic. Tympanic membranes are dull with fluid in both middle ear spaces. Pupils are equal, round, and reactive to light and accommodation. Extraocular movements within normal limits. Intranasal examination reveals moderate septal deviation with compensatory hypertrophy of the inferior turbinates and moderate amount of mucus on the mucous membranes and draining down the posterior pharynx. Remainder of the head and neck exam is unremarkable. CHEST/CARDIOVASCULAR: Both lung frederick are clear to percussion and auscultation. Patient is in regular sinus rhythm. S1 and S2 are present without any murmurs, S3 or S4. Peripheral pulses are bilaterally symmetrical. ABDOMEN: No evidence of any masses, megaly, or tenderness. The abdomen is soft. SKIN: Unremarkable. MUSCULOSKELETAL/NEUROLOGICAL: Unremarkable. PELVIC/RECTAL: This should be printed. The pelvic/rectal exam is deferred at this time because the patient has it done on a regular basis at her family physician's office. Remainder of this physical exam is essentially unremarkable. PREVIOUS SURGERIES: Include left and right total knee replacement, multiple bilateral myringotomies, insertion of ventilation tubes, and repair of a right femur. The patient is 2 para, 2 , 0 , 0 miscarriage. ASSESSMENT: Chronic bilateral serous otitis media. PLAN: The patient is scheduled to undergo bilateral myringotomy with insertion of T type ventilation tubes under IV sedation with MAC. Attention, RNs in the pre-surgical area: I have ordered for this patient to receive 2 g of Rocephin IV to be given once an IV line has been established. Pharmacy department sends a different type of pre-surgical prophylactic antibiotics to the pre-surgical area for this patient, please cancel that order and return the medication to the pharmacy department. Also make sure that the patient's account is credited appropriately. I have discussed the risks, benefits and alternative therapies for the above-mentioned procedure and for both sedation/analgesia as well as necessary blood product administration, if indicated, as they pertain to this patient. The patient has indicated his or her understanding and acceptance of the risks and procedures discussed. MMODL / IJN: [id number] /
[~2024-05-25 09:18] MED LIST changes: +HYDROmorphone 0.5 MG/0.5 ML SYRINGE IVP PRN; -LIDOCAINE 1% (10MG/ML) FOR IV START INTRADERMA PRN; +Pre Op ABX Message 1 EACH MISC MISCELLANE ONE; -fentaNYL (PF) 50 MCG/ML 2 ML AMP IV PRN
[2024-05-25 09:48] VITALS: TEMP 98
[2024-05-25 09:57] LABS: Glucose,Whole Blood 122 mg/dL (70-110)
[2024-05-25] MEDS: LACTATED RINGERS 1,000 ML IV SCH (10:00)
[2024-05-25] MEDS: ONDANSETRON 4 MG/2 ML VIAL IVP ONE (10:00)
[2024-05-25] MEDS: SCOPOLAMINE 1 MG/72 HR PATCH TRANSDERM ONE (10:02)
[2024-05-25] MEDS: DEXAMETHASONE SOD PHOSPHATE 4 MG/ML 1 ML VIAL IV ONE (10:02)
[2024-05-25] MEDS: IV FLUID CONTINUATION 1,000 ML IV ONE (10:04)
[2024-05-25] MEDS ORDERED: PROPOFOL 10 MG/ML 20 ML VIAL IV ONE (11:35)
[2024-05-25] MEDS ORDERED: fentaNYL (PF) 50 MCG/ML 2 ML AMP ONE (11:35)
[2024-05-25] MEDS ORDERED: MIDAZOLAM 2 MG/2 ML VIAL ONE (11:35)
[2024-05-25 13:07] LABS: Glucose,Whole Blood 122 mg/dL (70-110)
[2024-05-25 13:24] VITALS: RESP 16
[2024-05-25 13:49] VITALS: BP 115/71; PULSE 83
--- NOTE | 2024-05-29 00:25 | OP ---
OPERATIVE REPORT DATE OF SERVICE : 05/25/2024 PREOPERATIVE DIAGNOSIS: Chronic bilateral serous otitis media. POSTOPERATIVE DIAGNOSIS: Chronic bilateral serous otitis media. ANESTHESIA: IV sedation with MAC. PROCEDURE: Bilateral myringotomy with insertion of a standard plastic T-type ventilation tube into the right tympanic membrane and a plastic Jaiden T-tube inserted into the left tympanic membrane. COMPLICATIONS: None. ESTIMATED BLOOD LOSS: Zero. DESCRIPTION OF PROCEDURE: The patient was placed on the operating table in supine position. After uneventful induction and IV sedation, satisfactory sedation was obtained. Next, the patient's right ear was draped and prepped in the usual and customary fashion. Following this, using a #3 aural speculum and the Zeiss operating microscope, the right external auditory canal was cleansed of all wax and debris. Next, using the myringotomy knife, an incision was made in the anterior-inferior quadrant of the right tympanic membrane. The right middle ear space was suctioned free of all fluid and a standard plastic T- type ventilation tube was inserted through the previously made myringotomy incision without difficulty. Next, attention was directed to the left ear where the same procedure was carried out. That is to say, using the #3 aural speculum and the Zeiss operating microscope, the left external auditory canal was cleansed of all wax and debris. Next, an attempt was initially made to insert the standard T-type ventilation tube, however, because of a large anterior canal wall bulge, this was not possible. Therefore, it was elected to insert a plastic Jaiden type T-tube. Therefore a myringotomy incision was made in the anterior-inferior quadrant of the left tympanic membrane and left middle ear space was suctioned free of all fluid. The Jaiden T-tube was inserted through the previously made myringotomy incision without difficulty. At this point, the procedure was terminated. There were no intraoperative complications. The patient tolerated the procedure well and was returned to the recovery room in satisfactory condition. MMODL / IJN: [id number] /
== END 2024-05-25 14:20 | disposition home or self-care (01) ==
LOC: OR 09:18
PROVIDERS: ATTEND Otolaryngology
DX: H65.23 Chronic serous otitis media, bilateral (principal); I10 Essential (primary) hypertension; E78.5 Hyperlipidemia, unspecified; E11.9 Type 2 diabetes mellitus without complications; E07.9 Disorder of thyroid, unspecified; F32.A Depression, unspecified; K21.9 Gastro-esophageal reflux disease without esophagitis; L23.1 Allergic contact dermatitis due to adhesives; M10.9 Gout, unspecified; Z88.1 Allergy status to other antibiotic agents; Z79.84 Long term (current) use of oral hypoglycemic drugs; Z79.890 Hormone replacement therapy; Z79.899 Other long term (current) drug therapy
CPT/HCPCS: 69436; J2250; J0171; J1100; J2405; J3010; J2704

== ENCOUNTER → 2024-06-01 | Outpatient (CLI) | payer MEDICARE ==
[2024-06-01 15:21] LABS: ALT 16 U/L (8-44); AST 19 U/L (13-35); Albumin 4.5 g/dL (3.8-4.9); Albumin/Globulin Ratio 2.14 Ratio (1.60-3.17); Alkaline Phosphatase 56 U/L (41-126); BUN/Creat Ratio 33.35 Ratio (12.00-20.00); Blood Urea Nitrogen 56.7 mg/dL (9.0-27.0); Calcium 9.9 mg/dL (8.7-10.3); Chloride 98 mmol/L (96-109); Globulin 2.1 g/dL (1.6-3.3); Glucose 162 mg/dL (70-110); Potassium 5.2 mmol/L (3.5-5.5); Sodium 135 mmol/L (135-145); Total Bilirubin 0.3 mg/dL (0.3-1.2); Total Protein 6.6 g/dL (6.2-8.2)
[2024-06-01 19:14] LABS: Microalbumin Creatinine Ratio <33 mg/g Cr (0-30); Urine Creatinine 35.9 mg/dL (28.0-217.0)
== END | disposition home or self-care (01) ==
LOC: LABWHC1 09:29
PROVIDERS: ATTEND Internal Medicine Endocrinology, Diabetes & Metabolism
DX: E11.65 Type 2 diabetes mellitus with hyperglycemia (principal)
CPT/HCPCS: 36415; 80053; 80061; 82043; 82570; 83036; 84443

== ENCOUNTER 2025-01-11 09:22 | Day surgery (SDC) | payer MEDICARE ==
[2025-01-09 10:56] VITALS: BMI 27.1
--- NOTE | 2025-01-10 20:13 | HP ---
HISTORY AND PHYSICAL CHIEF COMPLAINT: Fluid in the right ear. HISTORY OF PRESENT ILLNESS: This patient is a 64-year-old female who is well known to my office. She has had multiple sets of ventilation tubes. Her last set of ventilation tubes were Jaiden tube which extruded after approximately a year and a half to 2 years. She presented to my office complaining of having a plugged sensation in her right ear. At the time that she was seen in my office, examination of the right ear revealed that the right Jaiden tube had extruded and there was fluid present in the right middle ear space. It was therefore recommended that she undergo a right myringotomy with insertion of a ventilation tube under IV sedation with M.A.C. PAST MEDICAL HISTORY: Reveals that the patient has allergies to Biaxin and Celexa. CURRENT MEDICATIONS: Include, 1. Metformin. 2. Pravastatin. 3. Lasix. 4. Invokana. 5. Trulicity. 6. Synthroid. 7. Lisinopril. 8. NovoLog insulin. REVIEW OF SYSTEMS: CARDIOVASCULAR SYSTEM: Positive for hypertension and ASHD. METABOLIC/ENDOCRINE SYSTEM: Positive for type 1 diabetes mellitus, hypercholesterolemia, and hypothyroidism. Remainder of review of systems is unremarkable. PREVIOUS SURGERIES: Include left and right total knee replacement, multiple bilateral myringotomies with insertion of ventilation tubes, multiple myringotomies with insertion of ventilation tubes, and repair of a right femur. The patient is 2 para, 2 C-sections, , 0 miscarriage. PHYSICAL EXAMINATION: GENERAL: The patient is a 64-year-old female who is alert and cooperative. HEENT: The patient is normocephalic. Examination of the patient's left ear reveals that the left Jaiden tube is intact. Examination of the right ear reveals that the right Jaiden has extruded and the right middle ear space is filled with fluid. Pupils are equal, round, reactive to light and accommodation. Extraocular movements within normal limits. Intranasal examination reveals moderate septal deviation with compensatory hypertrophy inferior turbinates. Moderate amount of mucus on the mucous membrane draining down to the posterior pharynx. Examination of the oropharynx and the remainder of the head and neck exam is unremarkable. CHEST/CARDIOVASCULAR: Both lung frederick are clear to percussion and auscultation. The patient is in regular sinus rhythm. S1 and S2 are present without murmurs, S3s or S4s. Peripheral pulses are bilaterally symmetrical. ABDOMEN: There is no evidence any masses, megaly or tenderness. The abdomen is soft. SKIN: Unremarkable. MUSCULOSKELETAL AND NEUROLOGICAL: Within normal limits. PELVIC/RECTAL: Deferred at this time because the patient has this on a regular basis at her family physician's office. The remainder of physical exam is unremarkable. ASSESSMENT: Chronic right serous otitis media. PLAN: The patient is scheduled to undergo a right myringotomy with insertion of ventilation tube on IV sedation with M.A.C. Attention, RNs in the pre-surgical area I have ordered for this patient to receive 2 g of Ancef IV to be given once an intravenous line has been established. If the pharmacy department sends a different pre-surgical prophylactic antibiotic to the pre-surgical area for this patient, please cancel that order and return the medication to the pharmacy department. Also make sure that the patient's account is credited appropriately. I have discussed the risks, benefits and alternative therapies for the above-mentioned procedure and for both sedation/analgesia as well as necessary blood product administration, if indicated, as they pertain to this patient. The patient has indicated his or her understanding and acceptance of the risks and procedures discussed. MMODL / IJN: [id number] /
[~2025-01-11 09:22] MED LIST changes: -HYDROmorphone 0.5 MG/0.5 ML SYRINGE IVP PRN; -MIDAZOLAM 2 MG/2 ML VIAL IV PRN
[2025-01-11] MEDS ORDERED: fentaNYL (PF) 50 MCG/ML 2 ML AMP IVP PRN (09:53)
[2025-01-11] MEDS ORDERED: LIDOCAINE 1% (10MG/ML) FOR IV START INTRADERMA PRN (09:53)
[2025-01-11] MEDS ORDERED: HYDROmorphone 0.5 MG/0.5 ML SYRINGE IVP PRN (09:53)
[2025-01-11] MEDS ORDERED: MIDAZOLAM 2 MG/2 ML VIAL IV PRN (09:53)
[2025-01-11 10:16] VITALS: TEMP 96.9
[2025-01-11 10:26] LABS: Glucose,Whole Blood 180 mg/dL (70-110)
[2025-01-11] MEDS: IV FLUID CONTINUATION 1,000 ML IV ONE (10:26)
[2025-01-11] MEDS: ONDANSETRON 4 MG/2 ML VIAL IVP ONE (10:28)
[2025-01-11] MEDS: LACTATED RINGERS 1,000 ML IV SCH (10:28)
[2025-01-11] MEDS: DEXAMETHASONE SOD PHOSPHATE 4 MG/ML 1 ML VIAL IV ONE (10:29)
[2025-01-11] MEDS ORDERED: PROPOFOL 10 MG/ML 20 ML VIAL IV ONE (12:01)
[2025-01-11] MEDS ORDERED: MIDAZOLAM 2 MG/2 ML VIAL ONE (12:01)
[2025-01-11] MEDS ORDERED: fentaNYL (PF) 50 MCG/ML 2 ML AMP ONE (12:01)
[2025-01-11] MEDS: OFLOXACIN 0.3% OPHTH DROPS 5 ML BOTTLE LEFT EAR ONE (12:20)
[2025-01-11 12:58] VITALS: BP 108/58; PULSE 82; RESP 18
--- NOTE | 2025-01-13 17:28 | OP ---
OPERATIVE REPORT DATE OF SERVICE : PREOPERATIVE DIAGNOSIS: Chronic right serous otitis media. POSTOPERATIVE DIAGNOSIS: Chronic right serous otitis media. ANESTHESIA: IV sedation with MAC. OPERATIVE PROCEDURE: Right myringotomy with insertion of plastic Gunjan Bobbin ventilation tube. COMPLICATIONS: None. DESCRIPTION OF PROCEDURE: The patient was placed on the operating table in supine position and after uneventful induction and IV sedation, satisfactory general anesthesia was obtained. Next, the patient's right ear was draped in usual customary fashion. Following this, using #3 aural speculum and the Zeiss operating microscope, the right external auditory canal was cleansed of all wax and debris. Next, an incision was made in the anterior- inferior quadrant of the right tympanic membrane. The right middle ear space was suctioned free of all fluid and a plastic Gunjan-Bobbin ventilation tube was inserted without difficulty. At this point, the procedure was terminated. There were no intraoperative complications. The patient tolerated the procedure well and was returned to the recovery room in satisfactory condition. MMODL / IJN: [id number] /
== END 2025-01-11 13:33 ==
LOC: OR 09:22
PROVIDERS: ATTEND Otolaryngology
DX: H65.21 Chronic serous otitis media, right ear (principal); I10 Essential (primary) hypertension; I25.10 Atherosclerotic heart disease of native coronary artery without angina pectoris; E10.51 Type 1 diabetes mellitus with diabetic peripheral angiopathy without gangrene; E78.00 Pure hypercholesterolemia, unspecified; E03.9 Hypothyroidism, unspecified; K21.9 Gastro-esophageal reflux disease without esophagitis; Z79.890 Hormone replacement therapy; Z79.4 Long term (current) use of insulin; Z79.85 Long-term (current) use of injectable non-insulin antidiabetic drugs; Z79.84 Long term (current) use of oral hypoglycemic drugs; Z79.899 Other long term (current) drug therapy; Z88.8 Allergy status to other drugs, medicaments and biological substances
CPT/HCPCS: 69436; J1100; J0690; J2405